=== PATIENT | female | born 1975 | race Caucasian/White ===

== ENCOUNTER 2020-07-16 09:10 | Emergency (ER) | payer OTHER, SELFPAY ==
--- NOTE | ~2020-07-16 | CT_ITS ---
EXAMINATION: CT abdomen pelvis w con EXAM DATE: 07/16/2020 10:14 INDICATION: Abdominal pain. TECHNIQUE: Spiral CT of the abdomen and pelvis was performed without contrast. Axial, coronal and s agittal images were reviewed. The dose-length product (DLP) for this examination was 729.27 mGy-cm. The exposure was tailored according to patient size (auto mA exposure control), and iterative recons truction (ASIR) was used as additional dose reduction technique. Comparison is made to prior examinat ion from 07/29/2017. FINDINGS: The liver, spleen, adrenal glands and pancreas are unremarkable. Gallbladder is unremarkab le. No biliary obstruction. Portal and splenic veins are patent. Kidneys enhance symmetrically. T here is no hydronephrosis. The uterus is not identified and has likely been surgically resected. T he bladder is unremarkable. There is no retroperitoneal or pelvic lymphadenopathy. There is moderate scattered colonic diverticulosis. There is moderate amount of inflammation surround ing the descending colon, appearance consistent with acute uncomplicated diverticulitis. The appendix is normal. There is small sliding gastroesophageal hiatal hernia. There is expected amount of colo chris stool. No free intraperitoneal gas. The heart is normal in size. There are no pericardial or pleural effusions. The lung bases are unremarkable. Thoracolumbar Mooney rods. Mild to modera te upper lumbar levoscoliosis. There are no osteoblastic or osteolytic lesions identified. IMPRESSION: 1. Acute uncomplicated sigmoid diverticulitis. Reviewed, dictated and finalized at location A.
[2020-07-16 09:13] VITALS: BP 146/81; PULSE 82; RESP 18; TEMP 36.4; O2SAT 97
--- NOTE | 2020-07-16 09:21 | ED.ABDPAIN ---
HPI - Abdominal Pain General Chief Complaint: Abdominal Pain Stated Complaint: diverticulitis again Time Seen by Provider: 07/16/20 09:12 Source: RN notes reviewed History of Present Illness HPI narrative: Patient presents emergency department from home for abdominal pain. Patient states pain began 2 days ago located in the right lower quadrant described as aching in nature. Patient states that she did take ibuprofen this morning with improvement of the pain states she has a history of previous diverticulitis and this feels like similar. She denies any fevers or chills chest pain shortness of breath nausea vomiting diarrhea or any other symptoms Related Data Home Medications Medication Instructions Recorded Confirmed adalimumab 40 mg/0.8 mL See Rx Instructions SUB-Q .COMPLEX 08/25/19 08/25/19 subcutaneous syringe kit amlodipine 5 mg tablet 5 mg PO DAILY 08/25/19 08/25/19 biotin 1 mg capsule 1 mg PO DAILY 08/25/19 08/25/19 cholecalciferol (vitamin D3) 50 6,000 unit PO DAILY tablet 08/25/19 08/25/19 mcg (2,000 unit) tablet gabapentin 300 mg capsule 300 mg PO TID 08/25/19 08/25/19 hydroxychloroquine 200 mg tablet 200 mg PO BID 08/25/19 08/25/19 prenat.vits,jhon,vrz-slxw-ndwxj 1 tablet PO DAILY 08/25/19 08/25/19 methotrexate sodium 2.5 mg tablet 2.5 mg PO WEEKLY 02/19/20 estradiol mg 07/16/20 Allergies Allergy/AdvReac Type Severity Reaction Status Date / Time AMOXICILLIN TRIHYDRATE Allergy Mild STOMACHE Uncoded 07/16/20 09:22 CRAMPS/DIARRHEA POTASSIUM CLAVULANATE Allergy Mild STOMACHE Uncoded 07/16/20 09:22 CRAMPS/DIARRHEA Review of Systems Review of Systems: Narrative: Gen.: Denies fevers or chills ENT: Denies congestion Respiratory: Denies shortness of breath or cough CV: Denies chest pain or palpitations GI: See HPI denies burning, urgency, frequency or hematuria Musculoskeletal: Denies back pain or muscle pain Neuro: Denies numbness, tingling, weakness or focal weakness Skin: Denies rash Except as documented, all other systems reviewed and negative PMFSH Past Medical History Medical History Heart murmur Hyperparathyroidism Hypertension Insomnia Kidney stones Psoriatic arthritis Scoliosis Sjogrens syndrome Surgical History Surgical History (Updated 08/25/19 @ 08:07 by Marjorie Hope CMA) H/O spinal fusion History of partial hysterectomy Hx of breast augmentation Family History Family History (Updated 05/21/18 @ 16:00 by DOCTOR UNKNOWN) Father Hypertension Family history of diabetes mellitus in first degree relative Mother Hypertension Sibling Family history of alcoholism Other Family history of cardiovascular disease Social History Social History Smoking status: Never smoker Alcohol intake: current Gender identity (if verbalized by the patient): Female Exam Narrative: Exam Narrative: APPEARANCE: No acute distress, nontoxic, resting in bed HEENT: Normocephalic, atraumatic, OMM RESPIRATORY: No respiratory distress, clear to auscultation bilaterally with no rhonchi wheezing or rales CARDIOVASCULAR: RRR s murmur ABDOMINAL: Soft, nondistended, tender palpation right lower quadrant, no tenderness right upper quadrant, left lower quadrant left lower quadrant no rebound or guarding MUSCULOSKELETAl: Moves all extremities. No clubbing, cyanosis or edema. NEURO: Awake and alert. Following commands, speech normal, no focal deficits SKIN:: Warm, dry. Normal Color PSYCHIATRIC: Normal affect/mood Course Course Emergency Course: Discussed Dr. Rock presentation work-up agrees with plan for discharge follow-up as an outpatient Discussed with patient results of workup and diagnosis. Discussed need for follow-up with primary care, proper use of medication, and reasons to return to the emergency department. Patient understands and agrees to current treatment
[2020-07-16 09:37] LABS: Basophils Absolute Auto 0.1 K/mm3 (0.0-0.1); Basophils Percent Auto 0.5 % (0.2-1.2); Eosinophils Absolute Auto 0.3 K/mm3 (0-0.3); Eosinophils Percent Auto 2.4 % (0-4.4); Hematocrit 38.1 % (37.0-47.0); Hemoglobin 12.9 g/dL (12.0-15.0); Immature Granulocyte Absolute 0.05 K/mm3 (0.00-0.031); Immature Granulocyte Percent A 0.4 % (0-0.5); Lymphocytes Absolute Auto 1.63 K/mm3 (0.9-3.2); Lymphocytes Percent Auto 11.9 % (18.3-44.2); Mean Corpuscular HGB Conc 33.9 g/dl (32-36); Mean Corpuscular Hemoglobin 34.2 pg (26-34); Mean Corpuscular Volume 101.1 fl (80-100); Mean Platelet Volume 11.7 fl (7.4-10.4); Monocytes Absolute Auto 1.6 K/mm3 (0.1-0.6); Monocytes Percent Auto 11.3 % (2.6-8.5); Neutrophils Absolute Auto 10.1 K/mm3 (1.3-6.7); Neutrophils Percent Auto 73.5 % (45.5-73.1); Platelet Count Result 253 k/mm3 (150-375); Red Blood Count 3.77 M/mm3 (4.2-5.4); Red Cell Distribution Width 13.1 % (11.5-14.5); White Blood Count 13.7 K/mm3 (4.5-10.0)
[2020-07-16 09:43] LABS: Add Urine Microscopic? NO; Appearance Urine Clear (Clear); Bacteria Urine Trace /hpf; Bilirubin Urine Negative (Negative); Blood Urine Negative (Negative); Color Urine Yellow (Yellow); Glucose Urine UA Negative (Negative); Ketones Urine Negative (Negative); Leukocyte Esterase Ur Negative LEU/UL (Negative); Mucus Urine Rare /lpf; Nitrate Urine Negative (Negative); Protein Urine Negative (Negative); RBC Urine 0-2 /hpf (0-2); Specific Grav Ur 1.006 (1.001-1.035); Squamous Epithelial Cell Urine Moderate /hpf (Few); Urobilinogen Urine Negative mg/dL (<2.0); WBC Urine 0-3 /hpf
[2020-07-16 09:51] LABS: Alanine Aminotransferase 60 U/L (4-35); Albumin Level 4.5 g/dL (3.5-5.1); Alkaline Phosphatase 59 U/L (38-126); Anion Gap 8 mmol/L (8-16); Aspartate Amino Transferase 26 U/L (14-36); Bilirubin,Total 0.8 mg/dL (0.2-1.3); Blood Urea Nitrogen 16 mg/dL (7-17); Calcium 10.3 mg/dL (8.4-10.2); Carbon Dioxide 29 mmol/L (22-30); Chloride 103 mmol/L (98-107); Estimated CRCL calculation 117 ml/min; Estimated Glomerular Filt Rate > 60; Glucose 105 mg/dL (65-105); Lipase 129 U/L (23-300); Potassium 4.2 mmol/L (3.4-5.0); Sodium 140 mmol/L (137-145)
[2020-07-16] MEDS: CIPROFLOXACIN 500 MG TAB PO (11:19)
[2020-07-16] MEDS: metroNIDAZOLE 250 MG TABLET 500 MG PO (11:20)
== END 2020-07-16 12:38 | disposition home or self-care (01) ==
PROVIDERS: Emergency Provider Emergency Medicine; PCP Internal Medicine
DX: K57.32 Diverticulitis of large intestine without perforation or abscess without bleeding (principal); E21.3 Hyperparathyroidism, unspecified; I10 Essential (primary) hypertension; Z87.442 Personal history of urinary calculi; L40.50 Arthropathic psoriasis, unspecified; M35.00 Sjogren syndrome, unspecified; Z98.1 Arthrodesis status
CPT/HCPCS: 36415; 74177; 80053; 81003; 83690; 85025; 99284; A9270; Q9967

== ENCOUNTER 2021-01-05 08:38 | Outpatient (CLI) | payer OTHER, SELFPAY ==
--- NOTE | ~2021-01-05 | CT_ITS ---
EXAMINATION: CT wrist RT wo con DATE: 01/05/2021 09:08 INDICATION: Right wrist pain post fall 2 weeks prior TECHNIQUE: High resolution computed tomography (CT) of the right was performed without intravenous co ntrast. Additional sagittal and coronal reconstructions were performed. Automated exposure control an d iterative reconstruction technique were employed. The dose-length product was 275.22 mGy-cm. COMPARISON: None FINDINGS: Bone alignment is normal. No fracture. Mild osteoarthritis at the second carpometacarpal joint. Remai analy joint spaces are relatively preserved. Approximately 14 x 5 x 6 mm ganglion cyst arising from th e wrist joint and extending volar to the radial styloid process. Soft tissues are otherwise unremarka ble. IMPRESSION: 1. No acute osseous abnormality. Reviewed, dictated and finalized at location A.
== END 2021-01-05 08:39 | disposition home or self-care (01) ==
LOC: ANHIMG 08:42
PROVIDERS: PCP Internal Medicine; Visit Provider Nurse Practitioner
DX: M25.531 Pain in right wrist (principal)
CPT/HCPCS: 73200

== ENCOUNTER 2021-04-29 14:38 | Emergency (ER) | payer OTHER, SELFPAY ==
--- NOTE | ~2021-04-29 | CT_ITS ---
EXAMINATION: CT abdomen pelvis w con DATE: 04/29/2021 16:29 INDICATION: Nausea, vomiting and diarrhea TECHNIQUE: Computed tomography (CT) of the abdomen and pelvis was performed with 100 mL Omnipaque-350 intravenous contrast. Automated exposure control and iterative reconstruction technique were employe d. The dose-length product was 1432.04 mGy-cm. COMPARISON: 07/16/2020 FINDINGS: Lung bases are clear. Heart size is normal. No pericardial or pleural effusion. Small sliding-type hi atal hernia. Diffuse hepatic steatosis with more focal fat at the ligamentum teres. Gallbladder, panc reas, spleen, bilateral adrenal glands and kidneys are normal. There is moderate colonic diverticulos is with a sigmoid predominance. There is no adjacent inflammatory change to suggest diverticulitis. Small bowel and appendix are normal. Bladder is normal. The uterus is not identified and has likely been surgically resected. No free intraperitoneal gas or fluid. No pathologically enlarged abdominal or pelvic lymphadenopathy. Lumbar levoscoliosis with mild spondylosis. Posterior spinal fusion with b ilateral vertical rods and pedicle screw fixation extending cephalad from L1 to at least T7 and beyon d the cephalad margin of the [id number]-ml-phdo. IMPRESSION: 1. No acute intra-abdominal/pelvic process. 2. Small sliding-type hiatal hernia. 3. Diffuse hepatic steatosis. 4. Moderate colonic diverticulosis. Reviewed, dictated and finalized at location A.
--- NOTE | ~2021-04-29 | XR_ITS ---
EXAMINATION: XR chest 1V portable INDICATION: Hypertension TECHNIQUE: Portable AP chest at 1534 hours COMPARISON: 01/27/2008 FINDINGS: The lungs are free of acute opacities. There is no pleural effusion or pneumothorax. The ca rdiomediastinal silhouette is normal. There are changes of thoracic spine fusion. IMPRESSION: 1. No acute cardiopulmonary abnormality. Reviewed, dictated and finalized at location A.
[2021-04-29 14:41] VITALS: BP 229/95; PULSE 88; RESP 22; TEMP 36.7; O2SAT 98
[2021-04-29 15:13] LABS: Basophils Absolute Auto 0.1 K/mm3 (0.0-0.1); Basophils Percent Auto 0.6 % (0.2-1.2); Eosinophils Absolute Auto 0.1 K/mm3 (0-0.3); Eosinophils Percent Auto 1.2 % (0-4.4); Hemoglobin 12.9 g/dL (12.0-15.0); Immature Granulocyte Absolute 0.04 K/mm3 (0.00-0.031); Immature Granulocyte Percent A 0.3 % (0-0.5); Lymphocytes Absolute Auto 1.58 K/mm3 (0.9-3.2); Lymphocytes Percent Auto 13.2 % (18.3-44.2); Mean Corpuscular HGB Conc 33.1 g/dl (32-36); Mean Corpuscular Hemoglobin 33.9 pg (26-34); Mean Corpuscular Volume 102.6 fl (80-100); Mean Platelet Volume 10.9 fl (7.4-10.4); Monocytes Percent Auto 8.4 % (2.6-8.5); Neutrophils Absolute Auto 9.1 K/mm3 (1.3-6.7); Neutrophils Percent Auto 76.3 % (45.5-73.1); Platelet Count Result 231 k/mm3 (150-375); Red Cell Distribution Width 13.3 % (11.5-14.5)
--- NOTE | 2021-04-29 15:24 | ECG_ITS ---
Measurements Intervals [place] Rate: 74 P: 26 MD: 141 QRS: -19 QRSD: 106 T: 32 QT: 395 QTc: 439 Interpretive Statements SINUS RHYTHM BORDERLINE R WAVE PROGRESSION, ANTERIOR LEADS BASELINE WANDER- I, II BORDERLINE ECG Electronically Signed On 04-30-2021 7:19:02 CDT by Jarred Ornelas D.O.
--- NOTE | 2021-04-29 15:27 | ED.GENADULT ---
HPI - General Adult General Chief complaint: Abdominal Pain Stated complaint: abd pain Time Seen by Provider: 04/29/21 14:51 Source: patient Mode of arrival: ambulatory Limitations: no limitations History of Present Illness HPI narrative: Patient presents for evaluation of abdominal pain, nausea without vomiting, and diarrhea since 1130 this morning. States the pain is intermittent, occurring approximately once every 15 minutes and lasting about 1 minute in duration. No fever, chills, urinary symptoms. She has a hx of recurrent diverticulitis but pain with diverticulitis is typically on the left side. Her current pain is in epigastric region and radiates across her abdomen. She had a colonoscopy in 2016 that showed diverticulosis without other abnormalities. She states that GI informed her that she did not need to return for colonoscopy until 2026. Surgical history positive for hysterectomy. She does drink daily, with reported intake of five vodka-containing beverages daily. Last ETOH use was yesterday. Related Data Home Medications Medication Instructions Recorded Confirmed adalimumab 40 mg/0.8 mL See Rx Instructions SUB-Q .COMPLEX 08/25/19 01/19/21 subcutaneous syringe kit biotin 1 mg capsule 1 mg PO DAILY 08/25/19 01/19/21 cholecalciferol (vitamin D3) 50 6,000 unit PO DAILY tablet 08/25/19 01/19/21 mcg (2,000 unit) tablet gabapentin 300 mg capsule 300 mg PO TID 08/25/19 01/19/21 hydroxychloroquine 200 mg tablet 200 mg PO BID 08/25/19 01/19/21 prenat.vits,jhon,rxu-ypao-cqama 1 tablet PO DAILY 08/25/19 01/19/21 estradiol mg 07/16/20 01/19/21 folic acid 400 mcg tablet 0.4 mg PO DAILY 07/19/20 01/19/21 methotrexate sodium 15 mg tablet 15 mg PO WEEKLY 07/19/20 01/19/21 omega-3 fatty acids 1,000 mg 1,000 mg PO DAILY 12/08/20 01/19/21 capsule Allergies Allergy/AdvReac Type Severity Reaction Status Date / Time AMOXICILLIN TRIHYDRATE Allergy Mild STOMACHE Uncoded 07/19/20 08:01 CRAMPS/DIARRHEA POTASSIUM CLAVULANATE Allergy Mild STOMACHE Uncoded 07/19/20 08:01 CRAMPS/DIARRHEA Review of Systems Review of Systems: Narrative: CONSTITUTIONAL: Denies fever, chills, or sweats. EYES: Denies visual changes, redness, or discharge. ENT: Denies rhinorrhea, congestion, sore throat, or otalgia. CARDIOVASCULAR: Denies chest pain, palpitations, or edema. RESPIRATORY: Denies cough or dyspnea. GASTROINTESTINAL: Reports diarrhea, abdominal pain, and nausea without vomiting. GENITOURINARY: Denies dysuria or hematuria. SKIN: Denies rash or itching. MUSCULOSKELETAL: Denies back pain, joint pain, or myalgia. NEUROLOGIC: Denies headache, numbness, dizziness, or weakness. PSYCHIATRIC: Denies anxiety or depression. [facility] Past Medical History Medical History (Updated 04/29/21 @ 17:43 by Michael Casillas, RAFAEL, ) Heart murmur Hyperparathyroidism Hypertension Insomnia Kidney stones Psoriatic arthritis Scoliosis Sjogrens syndrome Surgical History Surgical History H/O spinal fusion History of partial hysterectomy Hx of breast augmentation Family History Family History Father Hypertension Family history of diabetes mellitus in first degree relative Mother Hypertension Sibling Family history of alcoholism Other Family history of cardiovascular disease Social History Social History Smoking status: Never smoker Alcohol intake: current Alcohol use details: daily Gender identity (if verbalized by the patient): Female Exam Narrative: Exam Narrative: GENERAL: Well-appearing, well-nourished, and in no acute distress. HEAD: Normocephalic, atraumatic. EYES: PERRLA and EOMI. ENT: Nares clear, no rhinorrhea or epistaxis. Mucous membranes moist. Oropharynx without tonsillar hypertrophy exudate or other lesions. Bilateral TMs
[2021-04-29] MEDS: MORPHINE SULFATE (*CRX) 2 MG/ML INJ IV PUSH (15:39)
[2021-04-29] MEDS: ONDANSETRON INJ 4 MG/2 ML VIAL IV PUSH (15:39)
[2021-04-29] MEDS: SODIUM CHLORIDE 0.9% IV 1,000 ML 999 ML IV CONT (15:40)
[2021-04-29 16:08] LABS: Alanine Aminotransferase 57 U/L (4-35); Albumin Level 4.6 g/dL (3.5-5.1); Alkaline Phosphatase 59 U/L (38-126); Anion Gap 10 mmol/L (8-16); Aspartate Amino Transferase 48 U/L (14-36); Bilirubin,Total 0.5 mg/dL (0.2-1.3); Blood Urea Nitrogen 16 mg/dL (7-17); Calcium 10.6 mg/dL (8.4-10.2); Carbon Dioxide 23 mmol/L (22-30); Chloride 106 mmol/L (98-107); Estimated CRCL calculation 131 ml/min; Estimated Glomerular Filt Rate > 60; Glucose 101 mg/dL (65-110); Lactic Acid Reflex 0.9 mmol/L (0.7-2.1); Lipase 126 U/L (23-300); Sodium 139 mmol/L (137-145)
[2021-04-29 16:19] LABS: Troponin I < 0.012 ng/mL (0.000-0.034)
[2021-04-29 16:58] LABS: Add Urine Microscopic? YES; Appearance Urine Clear (Clear); Bacteria Urine Trace /hpf; Bilirubin Urine Negative (Negative); Blood Urine Negative (Negative); Color Urine Yellow (Yellow); Glucose Urine UA Negative (Negative); Ketones Urine Trace mg/dL (Negative); Leukocyte Esterase Ur Negative LEU/UL (Negative); Mucus Urine Rare /lpf; Nitrate Urine Negative (Negative); Protein Urine Negative (Negative); RBC Urine 0-2 /hpf (0-2); Squamous Epithelial Cell Urine Occasional /hpf (Few); Urobilinogen Urine Negative mg/dL (<2.0); WBC Urine 0-3 /hpf
[2021-04-29 18:05] VITALS: BP 174/89; PULSE 89; RESP 17; O2SAT 98
== END 2021-04-29 18:10 | disposition home or self-care (01) ==
PROVIDERS: Emergency Provider Nurse Practitioner; PCP Internal Medicine
DX: R10.84 Generalized abdominal pain (principal); R19.7 Diarrhea, unspecified; E21.3 Hyperparathyroidism, unspecified; I10 Essential (primary) hypertension; Z87.442 Personal history of urinary calculi; L40.50 Arthropathic psoriasis, unspecified; M35.00 Sjogren syndrome, unspecified; Z98.1 Arthrodesis status; K44.9 Diaphragmatic hernia without obstruction or gangrene; K76.0 Fatty (change of) liver, not elsewhere classified; K57.90 Diverticulosis of intestine, part unspecified, without perforation or abscess without bleeding; R94.31 Abnormal electrocardiogram [ECG] [EKG]
CPT/HCPCS: 36415; 71045; 74177; 80053; 81001; 83605; 83690; 84484; 85025; 93005; 96374; 96375; 99284; J2270; J2405; J7030; Q9967

== ENCOUNTER → 2021-07-21 12:39 | Outpatient (CLI) | payer OTHER, SELFPAY ==
--- NOTE | ~2021-07-21 | MM_ITS ---
EXAMINATION: MM screening [facility] BI w [facility] HISTORY: Screening mammogram TECHNIQUE: Craniocaudal and mediolateral oblique 3-D tomosynthesis images were obtained and synthetic 2-D images were generated. CAD analysis was submitted and interpreted. COMPARISON: 01/07/2018, 12/23/2017, 02/13/2016 BREAST PARENCHYMAL COMPOSITION: There are scattered areas of fibroglandular density. FINDINGS: A stable mass in the middle third of the central right breast is considered benign given th e lack of interval change. There is no evidence of suspicious mass, calcification, or architectural d istortion to suggest malignancy in either breast. There has been no suspicious interval change. IMPRESSION: 1. No mammographic evidence of malignancy. 2. Recommend routine screening mammography in one year. BI-RADS Category 2: Benign finding(s). Reviewed, dictated and finalized at location A.
== END ==
PROVIDERS: PCP Internal Medicine; Visit Provider Internal Medicine
DX: Z12.31 Encounter for screening mammogram for malignant neoplasm of breast (principal)
CPT/HCPCS: 77063; 77067

== ENCOUNTER 2022-09-17 17:31 | Emergency (ER) | payer OTHER, SELFPAY ==
[2022-09-17 17:49] VITALS: BP 144/69; PULSE 106; RESP 16; TEMP 36.3; O2SAT 100
--- NOTE | 2022-09-17 21:39 | PC.NURSE ---
first call [phone], no answer from waiting room second call 2138, no answer from waiting room. patient left without seeing a provider
== END 2022-09-17 21:56 | disposition left against medical advice (07) ==
PROVIDERS: Emergency Provider Internal Medicine; PCP Internal Medicine
DX: K92.1 Melena (principal)
CPT/HCPCS: 99199

== ENCOUNTER 2022-09-18 08:35 | Inpatient (IN) | payer OTHER, SELFPAY ==
[2022-09-18] VITALS (7 sets, daily range): BP systolic 136–180; BP diastolic 50–93; PULSE 77–99; RESP 16–18; TEMP 36.6–36.8; O2SAT 98–100; BMI 41.9
[2022-09-18 09:06] LABS: Basophils Absolute Auto 0.1 K/mm3 (0.0-0.1); Basophils Percent Auto 1.1 % (0.2-1.2); Eosinophils Absolute Auto 0.2 K/mm3 (0-0.3); Eosinophils Percent Auto 4.1 % (0-4.4); Hematocrit 24.2 % (37.0-47.0); Hemoglobin 7.5 g/dL (12.0-15.0); Immature Granulocyte Absolute 0.01 K/mm3 (0.00-0.031); Immature Granulocyte Percent A 0.2 % (0-0.5); Lymphocytes Absolute Auto 1.58 K/mm3 (0.9-3.2); Lymphocytes Percent Auto 29.3 % (18.3-44.2); Mean Corpuscular Volume 96.8 fl (80-100); Mean Platelet Volume 11.3 fl (7.4-10.4); Monocytes Absolute Auto 0.6 K/mm3 (0.1-0.6); Monocytes Percent Auto 11.7 % (2.6-8.5); Neutrophils Absolute Auto 2.9 K/mm3 (1.3-6.7); Neutrophils Percent Auto 53.6 % (45.5-73.1); Platelet Count Result 328 k/mm3 (150-375); Red Cell Distribution Width 13.6 % (11.5-14.5); White Blood Count 5.4 K/mm3 (4.5-10.0)
--- NOTE | 2022-09-18 09:16 | ED.GENADULT ---
HPI - General Adult General Chief complaint: GI Bleed Stated complaint: blood in stool, can't get in to GI Time Seen by Provider: 09/18/22 08:47 History of Present Illness HPI narrative: This is a 47-year-old female presenting ED for a GI bleed. Patient says that since September 06 she has been having maroon-colored stools. She got some basic lab work on September 08 which showed a hemoglobin of 9.1 which is low for her. Patient has noticed over last 3 weeks she has had significant fatigue and difficulty completing her day at work. Additionally she is having dyspnea on exertion is unable to go grocery shopping without becoming short of breath. Patient does have a history of diverticulosis. Her last colonoscopy was in 2016 after a bout of diverticulitis. Patient is not on any sort of blood thinner anticoagulant. Related Data Home Medications Medication Instructions Recorded Confirmed adalimumab 40 mg/0.8 mL See Rx Instructions subcut .COMPLEX 08/25/19 12/11/21 subcutaneous syringe kit (Humira) biotin 1 mg capsule 1 mg PO DAILY 08/25/19 12/11/21 cholecalciferol (vitamin D3) 50 6,000 unit PO DAILY 08/25/19 12/11/21 mcg (2,000 unit) tablet gabapentin 300 mg capsule 300 mg PO TID 08/25/19 12/11/21 hydroxychloroquine 200 mg tablet 200 mg PO BID 08/25/19 12/11/21 (Plaquenil) prenat.vits,jhon,quk-lceo-lojny 1 tablet PO DAILY 08/25/19 12/11/21 estradiol 0.5 mg tablet mg 07/16/20 12/11/21 omega-3 fatty acids 1,000 mg 1,000 mg PO DAILY 12/08/20 12/11/21 capsule (Fish Oil Concentrate) glucosam 750 mg-chondroi 100 tablet PO 07/23/22 mg-hyalur 1.65 mg-CF borate 108 mg tablet ([facility] [employer]) turmeric 1 cap PO DAILY 07/23/22 leflunomide 10 mg tablet mg 09/18/22 nirmatrelvir 300 mg (150 mg ea PO 09/18/22 x2)-ritonavir 100 mg tablet,dose pack(EUA) (Paxlovid) Allergies Allergy/AdvReac Type Severity Reaction Status Date / Time Beta-Blockers AdvReac Unknown Verified 09/18/22 09:24 (Beta-Adrenergic Bloc AMOXICILLIN TRIHYDRATE Allergy Mild STOMACHE Uncoded 07/23/22 08:23 CRAMPS/DIARRHEA POTASSIUM CLAVULANATE Allergy Mild STOMACHE Uncoded 07/23/22 08:23 CRAMPS/DIARRHEA Review of Systems Review of Systems: CONSTITUTIONAL: Denies night sweats. EYES: No eye pain ENT: Denies rhinorrhea CARDIOVASCULAR: Denies palpitations RESPIRATORY: Denies hemoptysis GASTROINTESTINAL: Denies hematemesis GENITOURINARY: Denies hematuria. SKIN: Denies rash MUSCULOSKELETAL: Denies myalgia. NEUROLOGIC: Denies weakness. PSYCHIATRIC: Denies delusions PMFSH Past Medical History Medical History Chronic pain syndrome Heart murmur Hyperparathyroidism Hypertension Insomnia Kidney stones Psoriatic arthritis Scoliosis Sjogrens syndrome Surgical History Surgical History H/O removal of cyst Removed from Scalp 04/2021 H/O spinal fusion History of partial hysterectomy Hx of breast augmentation Family History Family History Father Hypertension Family history of diabetes mellitus in first degree relative Mother Hypertension Sibling Family history of alcoholism Other Family history of cardiovascular disease Social History Social History Social History: Caffeine-rarely Smoking status: Never smoker Alcohol intake: current Alcohol use details: occasionally Gender identity (if verbalized by the patient): Female Exam Narrative: APPEARANCE: No apparent distress. Head: atraumatic. EYES: EOMI, NOSE: Atraumatic NECK: Trachea midline RESPIRATORY: No increased rate of breathing CARDIOVASCULAR: RRR, ABDOMINAL: Non-distended , no tenderness, no guarding or rebound Rectal Exam: revealed no external hemorrhoids, no jackson blood, Hemoccult negative MUSCULOSKELETAl: No obvious
[2022-09-18 09:18] LABS: INR 1.1; Prothrombin Time 13.4 Seconds (11.1-14.7)
[2022-09-18 09:19] LABS: Partial Thromboplastin Time 24.3 SECONDS (22.3-36.8)
[2022-09-18 09:25] LABS: Alanine Aminotransferase 49 U/L (6-35); Albumin Level 4.4 g/dL (3.5-5.1); Alkaline Phosphatase 41 U/L (38-126); Anion Gap 9 mmol/L (8-16); Aspartate Amino Transferase 61 U/L (14-36); Bilirubin,Total 0.4 mg/dL (0.2-1.3); Blood Urea Nitrogen 25 mg/dL (7-17); Calcium 9.5 mg/dL (8.4-10.2); Carbon Dioxide 24 mmol/L (22-30); Chloride 99 mmol/L (98-107); Estimated CRCL calculation 77 ml/min; Estimated Glomerular Filt Rate 59; Glucose 108 mg/dL (65-110); Potassium 3.9 mmol/L (3.4-5.0); Sodium 132 mmol/L (137-145)
--- NOTE | 2022-09-18 09:33 | PC.NURSE ---
Per EDP Zych, no orthostatic blood pressure needed.
[2022-09-18] MEDS: PANTOPRAZOLE SODIUM IV 40 MG VIAL 80 MG IV PUSH (10:50)
[2022-09-18 11:21] LABS: Influenza A QL RT-PCR Negative (Negative); Influenza B QL RT-PCR Negative (Negative); SARS-CoV-2 RNA PCR Negative
--- NOTE | 2022-09-18 12:21 | WPDGICN ---
Assessment and Plan Assessment and plan (1) Acute GI bleeding: Code(s): K92.2 - Gastrointestinal hemorrhage, unspecified Status: Acute Assessment and Plan: Patient with GI bleeding manifested by maroon stools. She also has a decline in hemoglobin. Differential diagnosis includes diverticular disease. Patient does have a prior history of diverticulosis. Other G lower GI bleeding lesions cannot be excluded. Plan for admission hospital transfusion as necessary. Colonoscopy after preparation tomorrow. (2) Obesity: Qualifiers: Obesity type: due to excess calories Obesity classification: adult class 3 (BMI >= 40) Serious obesity comorbidity presence: without serious comorbidity Body mass index: BMI 45.0-49.9 Qualified Code(s): E66.01 - Morbid (severe) obesity due to excess calories; Z68.42 - Body mass index [BMI] 45.0-49.9, adult Code(s): E66.9 - Obesity, unspecified Status: Acute GI Consult Note Consult date/time: 09/18/22 12:21 Reason for consult: Lower GI bleeding HPI: Tequila Simpson is a 47 year old female I am asked to see at the request of the emergency room. Patient states for the last several weeks has had maroonish blood in her stools. This somewhat separate from her bowel movements. She notices a great deal in the toilet. She began to feel somewhat weak and lightheaded for this reason presented emergency room where she was found to be significantly anemic. Hemoglobin 7.5 today. Patient reports several bouts of diverticulitis. A 5 years ago had a colonoscopy that confirmed diverticular disease. She has had 2 other bouts of diverticulitis treated with antibiotics over the last 5 years. Patient also has a history of psoriatic arthritis and Sjogren syndrome. 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 CBC several weeks ago revealed a hemoglobin of 9-1/2. Family history is noncontributory. There is no known history of polyps or cancers within the family. Review of Systems Review of Systems: Review of systems noncontributory. [facility], [facility] Past Medical History Medical History Chronic pain syndrome Heart murmur Hyperparathyroidism Hypertension Insomnia Kidney stones Psoriatic arthritis Scoliosis Sjogrens syndrome Surgical History Surgical History H/O removal of cyst Removed from Scalp 04/2021 H/O spinal fusion History of partial hysterectomy Hx of breast augmentation Family History Family History Father Hypertension Family history of diabetes mellitus in first degree relative Mother Hypertension Sibling Family history of alcoholism Other Family history of cardiovascular disease Social History Social History Social History: Caffeine-rarely Smoking status: Never smoker Alcohol intake: current Alcohol use details: occasionally Gender identity (if verbalized by the patient): Female Meds Home Medications and Allergies Home Medications Medication Instructions Recorded Confirmed Type adalimumab 40 mg/0.8 mL See Rx Instructions subcut .COMPLEX 08/25/19 12/11/21 History subcutaneous syringe kit (Humira) biotin 1 mg capsule 1 mg PO DAILY 08/25/19 12/11/21 History cholecalciferol (vitamin D3) 50 6,000 unit PO DAILY 08/25/19 12/11/21 History mcg (2,000 unit) tablet gabapentin 300 mg capsule 300 mg PO TID 08/25/19 12/11/21 History hydroxychloroquine 200 mg tablet 200 mg PO BID 08/25/19 12/11/21 History (Plaquenil) prenat.vits,jhon,zom-ogyd-duwnz 1 tablet PO DAILY 08/25/19 12/11/21 History estradiol 0.5 mg tablet mg 07/16/20 12/11/21 History omega-3 fatty acids 1,000 mg 1,000 mg PO DAILY 12/08/20 12/11/21 History capsule (Fish Oil Concentrate) fluticasone propionate 50 1 spray intranasal DAILY #16 grams
--- NOTE | 2022-09-18 14:15 | PM.IMHP ---
H&P: HPI History of Present Illness Date/Time: 09/18/22 14:15 Chief Complaint: Blood in stool. Narrative: This is a pleasant 47-year-old female with history of diverticulitis, hypertension, and psoriatic arthritis who presented to the ED for evaluation of blood in stool. She has been passing maroon-colored stools, occasionally admixed with clots, almost on a daily basis since . She has also had a decrease in appetite appetite, early satiety, bloating, and increased flatus. She has lost 15 pounds since due to the symptoms. She was seen by a GI specialist at [facility] on September 11 at which time she was given orders for a CT of the abdomen and pelvis to be done as an outpatient and plans were made for upper and lower endoscopies in November 2022. She continues to have bloody stools and due to progressive fatigue, weakness, and shortness of breath she came in for evaluation. Her hemoglobin today was 7.5, down from 9.1 on labs drawn last week, and she is being admitted in this setting for close monitoring and GI consultation. At this time she is resting comfortably and has no complaints aside from the fact that she is a bit hungry. She denies fever, chills, sweats, epigastric and abdominal pain, tenesmus, and rectal pain. No personal or family history of inflammatory bowel disease or colon cancer. Review of Systems Review of Systems: Twelve systems were reviewed and are negative except for as per HPI. [facility] Past Medical History Medical History (Updated 09/18/22 @ 20:25 by Leola Healy PA-C) Anxiety Chronic pain syndrome Depression Hyperparathyroidism Hypertension Insomnia Kidney stones Psoriatic arthritis Scoliosis Sjogrens syndrome Vitamin D deficiency Surgical History Surgical History (Updated 09/18/22 @ 15:06 by Leola Healy PA-C) History of bilateral breast reduction surgery History of partial hysterectomy History of removal of cyst Scalp. History of spinal fusion Family History Family History Father Hypertension Family history of diabetes mellitus in first degree relative Mother Hypertension Sibling Family history of alcoholism Other Family history of cardiovascular disease Social History Social History (Updated 09/18/22 @ 20:23 by Leola Healy PA-C) Social History: Surrogate medical decision maker: Jensen Simpson, spouse. Code status: Full code. Smoking status: Never smoker Alcohol intake: former Alcohol use details: 4-5 drinks most nights, none since 2021 Substance use: current Substance use type: marijuana Other substance usage details: medical marijuana Last use: 09/17/22 Lack of Transportation: No Lack of Food: Never True Current Housing: I Have Housing Concerned About Future Housing: No Difficulty Paying Gas/Electric Bills: No Difficulty Paying for Meds: No Currently Unemployed: No Education: Bachelor's Degree Difficulty w/ Childcare or Family Care: No Additional living arrangements comments: Lives in [place] with spouse. They have grown children. Spiritual care concerns: No Meds Home Medications and Allergies Home Medications Medication Instructions Recorded Confirmed Type adalimumab 40 mg/0.8 mL See Rx Instructions subcut .COMPLEX 08/25/19 09/18/22 History subcutaneous syringe kit (Humira) biotin 1 mg capsule 1 mg PO DAILY 08/25/19 09/18/22 History cholecalciferol (vitamin D3) 50 6,000 unit PO DAILY 08/25/19 09/18/22 History mcg (2,000 unit) tablet hydroxychloroquine 200 mg tablet 200 mg PO BID 08/25/19 09/18/22 History (Plaquenil) prenat.vits,jhon,lys-ybnv-orkuz 1 tablet PO DAILY 08/25/19 09/18/22 History estradiol 0.5 mg tablet 0.5 mg PO DAILY 07/16/20 09/18/22 History omega-3 fatty acids 1,000 mg 2,000 mg PO DAILY 12/08/20 09/18/22 History capsule (Fish Oil Concentrate) fluticasone propionate 50
--- NOTE | 2022-09-18 16:35 | ADMGEN ---
This patient, Tequila Simpson, was admitted to [facility] Surg Room 317-02. Patient/family oriented to hospital policies and general routines including ID bracelet, bed and alarms, visiting hours, pain management, procedures, bathroom and other care routines, personal items, smoking policy, room service/diet, and visiting hours. Information on how to activate the Rapid Response Team has been discussed. Patient/Family are encouraged to report perceived risks to care and to ask questions if they do not understand what they are told or what they should do.
[2022-09-18] MEDS: PEG (High)/E-LYTE SOLN 4,000 ML BTL 4000 ML PO (16:52)
[2022-09-18 17:54] LABS: Hematocrit 22.8 % (37.0-47.0)
[2022-09-18] MEDS: HYDROXYCHLOROQUINE SULFATE 200 MG TABLET PO (21:36)
[2022-09-19] VITALS (15 sets, daily range): BP systolic 102–146; BP diastolic 39–79; PULSE 52–84; RESP 14–26; TEMP 36.1–36.6; O2SAT 96–100
[2022-09-19 01:45] LABS: Hemoglobin 6.3 g/dL (12.0-15.0)
[2022-09-19 01:46] LABS: Hematocrit 20.1 % (37.0-47.0)
--- NOTE | 2022-09-19 01:52 | PC.NURSE ---
H&H 6.3/20.1, order to transfuse 1 unit of prbc.
[2022-09-19] MEDS: SODIUM CHLORIDE 0.9% IV 250 ML 30 ML IV CONT (02:31)
[2022-09-19] MEDS: TUBING, BLOOD PLUM PUMP TUBING 1 EACH XX (02:31)
[2022-09-19 05:20] LABS: Glucose Point of Care 91 mg/dl (65-105)
[2022-09-19 07:55] LABS: Basophils Absolute Auto 0.1 K/mm3 (0.0-0.1); Basophils Percent Auto 1.2 % (0.2-1.2); Eosinophils Absolute Auto 0.2 K/mm3 (0-0.3); Eosinophils Percent Auto 3.5 % (0-4.4); Hematocrit 23.7 % (37.0-47.0); Hemoglobin 7.4 g/dL (12.0-15.0); Immature Granulocyte Absolute 0.02 K/mm3 (0.00-0.031); Immature Granulocyte Percent A 0.4 % (0-0.5); Mean Corpuscular HGB Conc 31.2 g/dl (32-36); Mean Corpuscular Hemoglobin 29.4 pg (26-34); Mean Platelet Volume 11.1 fl (7.4-10.4); Monocytes Absolute Auto 0.7 K/mm3 (0.1-0.6); Monocytes Percent Auto 13.4 % (2.6-8.5); Neutrophils Absolute Auto 2.4 K/mm3 (1.3-6.7); Neutrophils Percent Auto 48.5 % (45.5-73.1); Platelet Count Result 245 k/mm3 (150-375); Red Blood Count 2.52 M/mm3 (4.2-5.4); Red Cell Distribution Width 13.3 % (11.5-14.5); White Blood Count 4.9 K/mm3 (4.5-10.0)
[2022-09-19 07:59] LABS: Alanine Aminotransferase 48 U/L (6-35); Albumin Level 3.9 g/dL (3.5-5.1); Alkaline Phosphatase 46 U/L (38-126); Anion Gap 6 mmol/L (8-16); Aspartate Amino Transferase 40 U/L (14-36); Bilirubin,Total 0.3 mg/dL (0.2-1.3); Blood Urea Nitrogen 18 mg/dL (7-17); Calcium 8.9 mg/dL (8.4-10.2); Carbon Dioxide 28 mmol/L (22-30); Chloride 101 mmol/L (98-107); Estimated CRCL calculation 78 ml/min; Estimated Glomerular Filt Rate 59; Glucose 96 mg/dL (65-110); Magnesium 1.9 mg/dL (1.6-2.3); Potassium 3.2 mmol/L (3.4-5.0); Sodium 135 mmol/L (137-145)
[2022-09-19] MEDS: LEFLUNOMIDE 10 MG TABLET PO (08:18)
[2022-09-19] MEDS: HYDROXYCHLOROQUINE SULFATE 200 MG TABLET PO ×2 (08:18→17:05)
[2022-09-19] MEDS: lisinopriL 20 MG TABLET 40 MG PO (08:18)
[2022-09-19] MEDS: FLUTICASONE PROPIONATE 0.05% NA SPR 16 GM BTL (*BKC) 1 SPRAY NASAL (08:19)
[2022-09-19] MEDS: hydroCHLOROthiazide 25 MG TABLET PO (08:19)
[2022-09-19] MEDS: estradioL 0.5 MG TABLET PO (08:19)
--- NOTE | 2022-09-19 10:30 | PM.IMPN ---
Progress Note: A&P Assessment and Plan (1) Acute blood loss anemia: Code(s): D62 - Acute posthemorrhagic anemia Status: Acute Assessment and Plan: Reports multiple maroon-colored stools Hemoglobin hematocrit upon arrival was 7.0/22.6 and was trending down to 6.3/20.1. 1 unit of packed red blood cells given on 09/18/2022 Current H&H 7.4/23.7 Colonoscopy scheduled for today Continue to trend H&H (2) Acute GI bleeding: Code(s): K92.2 - Gastrointestinal hemorrhage, unspecified Status: Acute Assessment and Plan: Multiple episodes of melena GI consulted Colonoscopy scheduled for today Current H&H 7.4/23.7 Continue to trend H&H Transfuse as indicated (3) Elevated LFTs: Code(s): R79.89 - Other specified abnormal findings of blood chemistry Status: Acute Assessment and Plan: LFTs noted to be elevated upon admission however trending down Current AST/ALT 40/48 Continue trend Consider hepatitis panel in the a.m. Probably related to acute blood loss anemia (4) Hypertension: Qualifiers: Hypertension type: essential hypertension Qualified Code(s): I10 - Essential (primary) hypertension Code(s): I10 - Essential (primary) hypertension Status: Acute Assessment and Plan: Current blood pressure 135/70 Continue hydrochlorothiazide 25 mg daily, lisinopril 40 mg daily. Trend blood pressure Adjust blood pressure medications as appropriate (5) Psoriatic arthritis: Code(s): L40.50 - Arthropathic psoriasis, unspecified Status: Acute Assessment and Plan: Stable at this time Continue home medications Time Spent With Patient Time with patient: Greater than 35 minutes Subjective Date/time seen: 09/19/22 1030 Interval history: 09/19/22 1030 Patient states she is doing pretty well. She did state that she had a pretty significant bloody bowel movement this morning. She denies any chest pain, shortness a breath, nausea, vomiting, sweats, fevers, chills. Patient states she is doing pretty well and she is hopeful that she can go home after her procedure today. H&H is currently stable. Patient will need potassium after her procedure. 09/18/22? 14:15 This is a pleasant 47-year-old female with history of diverticulitis, hypertension, and psoriatic arthritis who presented to the ED for evaluation of blood in stool. She has been passing maroon-colored stools, occasionally admixed with clots, almost on a daily basis since . She has also had a decrease in appetite appetite, early satiety, bloating, and increased flatus. She has lost 15 pounds since due to the symptoms. She was seen by a GI specialist at [facility] on September 11 at which time she was given orders for a CT of the abdomen and pelvis to be done as an outpatient and plans were made for upper and lower endoscopies in November 2022. She continues to have bloody stools and due to progressive fatigue, weakness, and shortness of breath she came in for evaluation. Her hemoglobin today was 7.5, down from 9.1 on labs drawn last week, and she is being admitted in this setting for close monitoring and GI consultation. At this time she is resting comfortably and has no complaints aside from the fact that she is a bit hungry. She denies fever, chills, sweats, epigastric and abdominal pain, tenesmus, and rectal pain. No personal or family history of inflammatory bowel disease or colon cancer. Review of Systems Review of Systems: All systems reviewed & are unremarkable except as noted in HPI and below Exam Narrative: General: well-nourished, well-appearing 47-year-old female, laying in bed, comfortable, NARD Neuro: awake, alert and oriented x4, speech clear, no focal neuro deficits noted HEENMT: normocephalic, atraumatic, EOMI, sclerae anicteric, moist oral mucosa Re
--- NOTE | 2022-09-19 11:57 | WPDANESEPPF ---
Anes - Initial Pre Proc Eval Procedure: Operation Date: 09/19/22 12:30 Proposed Procedures p Colonoscopy - Campbell Smalls MD s Possible Esophagogastroduodenoscopy - Campbell Smalls MD Date/Time: 09/19/22 11:57 Surgeon: Jessee Mensah MD Pre Op Diagnosis: GI Bleed Patient Data Age: 47 Gender: F Height: 1.68 m Weight: 117.5 kg Last Vital Signs Temp 97.4 F L 09/19/22 04:35 Pulse 70 09/19/22 08:00 Resp 16 09/19/22 04:35 BP 133/52 L 09/19/22 04:35 Pulse Ox 100 09/19/22 04:35 O2 Del Method Room Air 09/19/22 08:00 Allergies Allergy/AdvReac Type Severity Reaction Status Date / Time amoxicillin [From Augmentin] AdvReac Mild Stomach Verified 09/19/22 11:54 cramps, Diarrhea clavulanic acid AdvReac Mild Stomach Verified 09/19/22 11:54 [From Augmentin] cramps, Diarrhea Beta-Blockers AdvReac Unknown Verified 09/19/22 11:53 (Beta-Adrenergic Bloc Home Medications Medication Instructions Recorded Confirmed Type adalimumab 40 mg/0.8 mL See Rx Instructions subcut .COMPLEX 08/25/19 09/18/22 History subcutaneous syringe kit (Humira) biotin 1 mg capsule 1 mg PO DAILY 08/25/19 09/18/22 History cholecalciferol (vitamin D3) 50 6,000 unit PO DAILY 08/25/19 09/18/22 History mcg (2,000 unit) tablet hydroxychloroquine 200 mg tablet 200 mg PO BID 08/25/19 09/18/22 History (Plaquenil) prenat.vits,jhon,sak-uxde-lukrb 1 tablet PO DAILY 08/25/19 09/18/22 History estradiol 0.5 mg tablet 0.5 mg PO DAILY 07/16/20 09/18/22 History omega-3 fatty acids 1,000 mg 2,000 mg PO DAILY 12/08/20 09/18/22 History capsule (Fish Oil Concentrate) fluticasone propionate 50 1 spray intranasal DAILY #16 grams 08/14/21 09/18/22 Rx mcg/actuation nasal spray,suspension hydrochlorothiazide 25 mg tablet 25 mg PO DAILY #90 tabs 12/11/21 09/18/22 Rx lisinopril 40 mg tablet 40 mg PO DAILY #90 tabs 04/18/22 09/18/22 Rx glucosam 750 mg-chondroi 100 1 tablet PO DAILY 07/23/22 09/18/22 History mg-hyalur 1.65 mg-CF borate 108 mg tablet (Move Free [facility]) turmeric 1 cap PO DAILY 07/23/22 09/18/22 History leflunomide 10 mg tablet 10 mg PO DAILY 09/18/22 09/18/22 History Laboratory Tests 09/18/22 09/18/22 09/19/22 09:00 17:46 01:29 WBC RBC Hgb 7.0 g/dL L g/dL 6.3 g/dL L* g/dL (12.0-15.0) (12.0-15.0) Hct 22.8 % L % 20.1 % L* % (37.0-47.0) (37.0-47.0) MCV MCH MCHC RDW Plt Count MPV Immature Gran % (Auto) Neut % (Auto) Lymph % (Auto) Pershing % (Auto) Eos % (Auto) Baso % (Auto) Lymph # (Auto) Pershing # (Auto) Eos # (Auto) Baso # (Auto) Abs Immat Gran (auto) Absolute Neuts (auto) Absolute Nucleated RBC Nucleated RBC % Sodium Potassium Chloride Carbon Dioxide Anion Gap BUN Creatinine Estim Creat Clear Calc Estimated GFR Glucose POC Capillary Glucose Calcium Magnesium Total Bilirubin AST ALT Alkaline Phosphatase Total Protein Albumin Blood Type O Positive Antibody Screen Negative Crossmatch See Detail 09/19/22 09/19/22 09/19/22 04:59 07:32 07:32 WBC 4.9 K/mm3 K/mm3 (4.5-10.0) RBC 2.52 M/mm3 L M/mm3 (4.2-5.4) Hgb 7.4 g/dL L g/dL (12.0-15.0) Hct 23.7 % L % (37.0-47.0) MCV 94.0 fl fl (80-100) MCH 29.4 pg pg (26-34) MCHC 31.2 g/dl L g/dl (32-36) RDW 13.3 % % (11.5-14.5) Plt Count 245 k/mm3 k/mm3 (150-375) MPV 11.1
--- NOTE | 2022-09-19 12:17 | PM.DS ---
DS: Admitting Diagnosis Discharge Date 09/19/22 Admitting Diagnosis Acute blood loss anemia, GI bleed DS: Discharge Diagnosis Discharge Diagnosis (1) Acute blood loss anemia: Code(s): D62 - Acute posthemorrhagic anemia Status: Acute Assessment and Plan: Reports multiple maroon-colored stools Hemoglobin hematocrit upon arrival was 7.0/22.6 and was trending down to 6.3/20.1. 1 unit of packed red blood cells given on 09/18/2022 Current H&H 7.4/23.7 Colonoscopy scheduled for today Continue to trend H&H (2) Acute GI bleeding: Code(s): K92.2 - Gastrointestinal hemorrhage, unspecified Status: Acute Assessment and Plan: Multiple episodes of melena GI consulted Colonoscopy scheduled for today Current H&H 7.4/23.7 Continue to trend H&H Transfuse as indicated (3) Elevated LFTs: Code(s): R79.89 - Other specified abnormal findings of blood chemistry Status: Acute Assessment and Plan: LFTs noted to be elevated upon admission however trending down Current AST/ALT 40/48 Continue trend Consider hepatitis panel in the a.m. Probably related to acute blood loss anemia (4) Hypertension: Qualifiers: Hypertension type: essential hypertension Qualified Code(s): I10 - Essential (primary) hypertension Code(s): I10 - Essential (primary) hypertension Status: Acute Assessment and Plan: Current blood pressure 135/70 Continue hydrochlorothiazide 25 mg daily, lisinopril 40 mg daily. Trend blood pressure Adjust blood pressure medications as appropriate (5) Psoriatic arthritis: Code(s): L40.50 - Arthropathic psoriasis, unspecified Status: Acute Assessment and Plan: Stable at this time Continue home medications DS: Summary Hospital Course Hospital Course: Patient is a 47-year-old female with a history of diverticulitis, hypertension, psoriatic arthritis who presented the ED for evaluation of multiple episodes of melena. Patient stated that she was passing multiple maroon-colored stools since . She also claimed to have had a 15 lb weight loss since that as well CT of the abdomen and pelvis was done and patient was to have outpatient endoscopies in November. However patient continues to have multiple episodes of bloody stools, accompanied with increased weakness and fatigue. Upon arrival patient was noted to have hemoglobin of 7.5, which was trending down and was noted to be 6.3. Patient was given 1 unit of packed red blood cells. GI was consulted patient was taken for a colonoscopy. Colonoscopy found . Patient is stable per labs and vital signs at this time and is stable for discharge. Patient currently denies any chest pain, shortness a breath, nausea, vomiting, diarrhea, constipation, weakness or fatigue. Patient has been able to tolerate a diet and is stable for discharge at this time. Status at Discharge Functional status at discharge: independent ambulation Overall status at discharge: patient is progressing back to baseline Time Spent with Patient Time attestation: Total time spent providing and/or coordinating discharge services: 38 minutes Time spent: Greater than 30 minutes Specific discharge activities: Diagnostic testing, chart review, developing a treatment plan, education, care coordination documentation, physical exam, result review Exam Narrative: General: well-nourished, well-appearing 47-year-old female, laying in bed, comfortable, NARD Neuro: awake, alert and oriented x4, speech clear, no focal neuro deficits noted HEENMT: normocephalic, atraumatic, EOMI, sclerae anicteric, moist oral mucosa Respiratory: Clear to auscultation bilaterally without crackles, rhonchi or wheezes, nonlabored breathing Cardio: regular rate, regular rhythm with S1-S2 Abdomen: nondistended, normoac
[2022-09-19] MEDS: LACTATED RINGERS 1,000 ML 150 ML IV CONT (12:26)
[2022-09-19 14:22] LABS: Hematocrit 24.4 % (37.0-47.0); Hemoglobin 7.6 g/dL (12.0-15.0)
--- NOTE | 2022-09-19 17:54 | PM.CNGS ---
Assessment and Plan Assessment and plan (1) Internal hemorrhoids with complication: Code(s): K64.8 - Other hemorrhoids Status: Chronic Assessment and Plan: discussed with patient. Suspect that internal hemorrhoids are the source of her rectal bleeding. Plan to proceed with surgery tomorrow. Will likely excise single column of internal and external hemorrhoids as well as rubber band ligating any additional internal hemorrhoids. Patient will likely stay overnight tomorrow night and then go home on Saturday. I discussed the usual recovery time. All questions were answered. She would like to go ahead. (2) External hemorrhoids with complication: Code(s): K64.4 - Residual hemorrhoidal skin tags Status: Chronic Assessment and Plan: Not the source of bleeding but will be excised with the left lateral prolapsing internal hemorrhoid (3) Acute blood loss anemia: Code(s): D62 - Acute posthemorrhagic anemia Status: Acute Assessment and Plan: stable at present. History of Present Illness Consult details Consult date: 09/19/22 Reason for consult: other ( rectal bleeding) Requesting physician: Campbell Smalls MD Narrative: patient is a 47-year-old woman who has had rectal bleeding off and on for many months. However this has gotten more frequent and for the last 13 days she has had at least 1 if not multiple bloody bowel movements a day. The bowel movements vary from dark or maroon to frankly bloody. She notices frequently that she will have dripping blood from her rectum into the toilet. She became anemic due to this. Hemoglobin done at an outside facility on 09/08 was 9.2. When she came to the emergency room on 09/18 her hemoglobin was 7.5. She has been complaining of fatigue weakness and dyspnea on a bi exertion. She was seen in consultation by Dr. Smalls. He did a colonoscopy on her yesterday. There were prominent internal hemorrhoids with stigmata of bleeding. I was asked to see the patient regarding internal hemorrhoids as a likely source of her continued rectal bleeding. Patient also has several autoimmune diseases namely psoriatic arthritis, Sjogren syndrome, and Raynaud's. She has had a thoracic spine fusion. She has also had hyperparathyroidism. She has a past history both in 2019 and before of acute diverticulitis. She had a CT scan April of 2022 which did not show any acute process but only some diverticulosis and a small hiatal hernia. She is seen now in consultation regarding her hemorrhoids and rectal bleeding. Her hemoglobin did drop to 6.3 this morning. She received 1 unit packed cells and her last hemoglobin is 7.6. Review of Systems Review of Systems: All systems reviewed & are unremarkable except as noted in HPI and below ( HPI and those items noted below) Constitutional: Constitutional: Reports as per HPI, Denies chills, Reports fatigue, Denies fever(s), Reports lethargy and Reports weakness Cardiovascular: Cardiovascular: Denies chest pain, Denies chest pain with activity, Denies diaphoresis, Denies syncope, Reports dyspnea and Denies paroxysmal nocturnal dyspnea Respiratory: Respiratory: Denies chest congestion, Denies cough, Denies hemoptysis and Reports dyspnea Gastrointestinal: Gastrointestinal: Reports as per HPI, Reports hematochezia, Denies nausea and Denies vomiting Integumentary/Breasts: Skin/Breast: Denies lesions and Denies rash PMFSH Past Medical History Medical History Anxiety Chronic pain syndrome Depression Hyperparathyroidism Hypertension Insomnia Kidney stones Psoriatic arthritis Scoliosis Sjogrens syndrome Vitamin D deficiency Surgical History Surgical History History of bilateral breast reduction surgery History of partial hysterectomy History of removal of cyst Scalp. History of spinal fusion Family History Family
[2022-09-20] VITALS (16 sets, daily range): BP systolic 86–145; BP diastolic 38–79; PULSE 64–99; RESP 12–20; TEMP 36.1–36.8; O2SAT 96–100
[2022-09-20 07:05] LABS: Hematocrit 29.6 % (37.0-47.0); Hemoglobin 8.9 g/dL (12.0-15.0); Mean Corpuscular HGB Conc 30.1 g/dl (32-36); Mean Corpuscular Volume 99.7 fl (80-100); Mean Platelet Volume 11.4 fl (7.4-10.4); Platelet Count Result 384 k/mm3 (150-375); Red Blood Count 2.97 M/mm3 (4.2-5.4); Red Cell Distribution Width 13.5 % (11.5-14.5); White Blood Count 9.1 K/mm3 (4.5-10.0)
[2022-09-20 07:31] LABS: Anion Gap 12 mmol/L (8-16); Blood Urea Nitrogen 11 mg/dL (7-17); Calcium 9.5 mg/dL (8.4-10.2); Carbon Dioxide 24 mmol/L (22-30); Chloride 102 mmol/L (98-107); Estimated CRCL calculation 79 ml/min; Estimated Glomerular Filt Rate 59; Glucose 116 mg/dL (65-110); Potassium 3.4 mmol/L (3.4-5.0); Sodium 138 mmol/L (137-145)
[2022-09-20 07:48] LABS: Magnesium 2.1 mg/dL (1.6-2.3)
[2022-09-20] MEDS: FLUTICASONE PROPIONATE 0.05% NA SPR 16 GM BTL (*BKC) 1 SPRAY NASAL (09:38)
[2022-09-20] MEDS: lisinopriL 20 MG TABLET 40 MG PO (09:38)
[2022-09-20] MEDS: HYDROXYCHLOROQUINE SULFATE 200 MG TABLET PO ×2 (09:38→17:44)
[2022-09-20] MEDS: hydroCHLOROthiazide 25 MG TABLET PO (09:39)
[2022-09-20] MEDS: estradioL 0.5 MG TABLET PO (09:39)
[2022-09-20] MEDS: LEFLUNOMIDE 10 MG TABLET PO (09:39)
--- NOTE | 2022-09-20 11:47 | WPDHPUPDATE1 ---
History and Physical Update Update Date/Time: 09/20/22 11:47 History and Physical has been reviewed, including an updated exam of the patient. There are NO changes in the patient's condition. Risks, benefits, and alternatives have been discussed and questions answered. Patient agrees to proceed with procedure.
[2022-09-20] MEDS: LACTATED RINGERS 1,000 ML 30 ML IV CONT (14:20)
--- NOTE | 2022-09-20 14:39 | WPDANESEPPF ---
Anes - Initial Pre Proc Eval Procedure: Operation Date: 09/20/22 14:30 Proposed Procedures p Hemorrhoidectomy,Excision Single Column, Rubber Band Ligation Internal Hemorrhoids - Jorge Rene MD Date/Time: 09/20/22 14:39 Surgeon: Jessee Mensah MD Pre Op Diagnosis: GI Bleed Patient Data Age: 47 Gender: F Height: 1.68 m Weight: 120.1 kg Last Vital Signs Temp 36.8 C 09/20/22 06:00 Pulse 70 09/20/22 13:35 Resp 18 09/20/22 13:35 BP 115/55 L 09/20/22 13:35 Pulse Ox 99 09/20/22 13:35 O2 Del Method Room Air 09/20/22 13:35 Allergies Allergy/AdvReac Type Severity Reaction Status Date / Time amoxicillin [From Augmentin] AdvReac Mild Stomach Verified 09/20/22 14:05 cramps, Diarrhea clavulanic acid AdvReac Mild Stomach Verified 09/20/22 14:05 [From Augmentin] cramps, Diarrhea Beta-Blockers AdvReac Unknown Verified 09/20/22 14:05 (Beta-Adrenergic Bloc Home Medications Medication Instructions Recorded Confirmed Type adalimumab 40 mg/0.8 mL See Rx Instructions subcut .COMPLEX 08/25/19 09/18/22 History subcutaneous syringe kit (Humira) biotin 1 mg capsule 1 mg PO DAILY 08/25/19 09/18/22 History cholecalciferol (vitamin D3) 50 6,000 unit PO DAILY 08/25/19 09/18/22 History mcg (2,000 unit) tablet hydroxychloroquine 200 mg tablet 200 mg PO BID 08/25/19 09/18/22 History (Plaquenil) prenat.vits,jhon,ccy-lmfm-mpyqg 1 tablet PO DAILY 08/25/19 09/18/22 History estradiol 0.5 mg tablet 0.5 mg PO DAILY 07/16/20 09/18/22 History omega-3 fatty acids 1,000 mg 2,000 mg PO DAILY 12/08/20 09/18/22 History capsule (Fish Oil Concentrate) fluticasone propionate 50 1 spray intranasal DAILY #16 grams 08/14/21 09/18/22 Rx mcg/actuation nasal spray,suspension hydrochlorothiazide 25 mg tablet 25 mg PO DAILY #90 tabs 12/11/21 09/18/22 Rx lisinopril 40 mg tablet 40 mg PO DAILY #90 tabs 04/18/22 09/18/22 Rx glucosam 750 mg-chondroi 100 1 tablet PO DAILY 07/23/22 09/18/22 History mg-hyalur 1.65 mg-CF borate 108 mg tablet (Move Free [employer]) turmeric 1 cap PO DAILY 07/23/22 09/18/22 History leflunomide 10 mg tablet 10 mg PO DAILY 09/18/22 09/18/22 History Laboratory Tests 09/20/22 09/20/22 06:44 06:44 WBC 9.1 K/mm3 K/mm3 (4.5-10.0) RBC 2.97 M/mm3 L M/mm3 (4.2-5.4) Hgb 8.9 g/dL L g/dL (12.0-15.0) Hct 29.6 % L % (37.0-47.0) MCV 99.7 fl D fl (80-100) MCH 30.0 pg pg (26-34) MCHC 30.1 g/dl L g/dl (32-36) RDW 13.5 % % (11.5-14.5) Plt Count 384 k/mm3 H D k/mm3 (150-375) MPV 11.4 fl H fl (7.4-10.4) Sodium 138 mmol/L mmol/L (137-145) Potassium 3.4 mmol/L mmol/L (3.4-5.0) Chloride 102 mmol/L mmol/L (98-107) Carbon Dioxide 24 mmol/L mmol/L (22-30) Anion Gap 12 mmol/L mmol/L (8-16) BUN 11 mg/dL D mg/dL (7-17) Creatinine 1.00 mg/dL mg/dL (0.7-1.0) Estim Creat Clear Calc 79 ml/min ml/min Estimated GFR 59 (59 - ) Glucose 116 mg/dL H mg/dL (65-110) Calcium 9.5 mg/dL mg/dL (8.4-10.2) Magnesium 2.1 mg/dL mg/dL (1.6-2.3) Patient hx anesthesia problems: none Family hx anesthesia problems: none Results Review: All pre-operative results and documents have been reviewed as part of the pre-operative evaluation. [facility] Past Medical History Medical History Anxiety Chronic pain syndrome Depression Hyperparathyroidism Hypertension Insomnia Kidney stones Psoriatic arthritis Scoliosis Sjogrens syndrome Vitamin D deficiency Surgical History Surgical History History of bilateral breast reduction surgery History of partial hysterectomy History of removal of cyst Scalp. History of spinal fusion Family History Family History (Reviewed 09/19/22 @ 18:00 by
[2022-09-20] MEDS: ceFAZolin 2 GM/D5W 50 ML 2 GM/50 ML BAG IVPB (15:02)
--- NOTE | 2022-09-20 15:05 | PM.IMPN ---
Progress Note: A&P Assessment and Plan (1) Acute blood loss anemia: Code(s): D62 - Acute posthemorrhagic anemia Status: Acute Assessment and Plan: Patient presented to the hospital with multiple maroon colored stools. Hemoglobin decreased by 2 points upon admission from baseline. She trended down to 6.3 hemoglobin and received 1 unit of packed red blood cells on 09/18/2022 he. Colonoscopy was performed on 09/19 patient was found to have multiple medium-sized uncomplicated internal hemorrhoids in the rectum with stigmata of bleeding. She also had multiple medium diverticuli in the sigmoid colon without active bleeding. Preop hemoglobin 8.9/hematocrit 29.6% Repeat CBC tomorrow morning (2) Acute GI bleeding: Code(s): K92.2 - Gastrointestinal hemorrhage, unspecified Status: Acute Assessment and Plan: As above. Colonoscopy suggested bleeding internal hemorrhoids. General surgery was consulted and planned for excision of internal and external hemorrhoids as well as rubber-band (3) Elevated LFTs: Code(s): R79.89 - Other specified abnormal findings of blood chemistry Status: Chronic Assessment and Plan: AST and ALT appear to be mildly elevated since April of 2021. CT abdomen and pelvis in April 2021 showed diffuse hepatic steatosis. Likely non alcoholic fatty liver disease. Encourage weight loss. (4) Hypertension: Qualifiers: Hypertension type: essential hypertension Qualified Code(s): I10 - Essential (primary) hypertension Code(s): I10 - Essential (primary) hypertension Status: Chronic Assessment and Plan: Chronic, stable. Continue HCTZ and lisinopril (5) Psoriatic arthritis: Code(s): L40.50 - Arthropathic psoriasis, unspecified Status: Chronic Assessment and Plan: Chronic, continue patient hydroxychloroquine and leflunomide Plan Code status: Full code Disposition: Inpatient Discharge plan: Discharge it is in 1-2 days postop home with patient's Time Spent With Patient Time with patient: 15 - 25 minutes Subjective Date/time seen: 09/20/22 15:05 Patient found sitting up in bed in no acute distress. She reports plan for surgery today around 1:00 a.m.. She reports 2 bowel movements overnight with small amount of blood that were ?drops?. She denies abdominal pain, nausea, vomiting, chest pain, shortness a breath, cough, sputum, palpitations, or dysuria. She does report low back pain that she attributes to the hospital bed. Review of Systems Review of Systems: All systems reviewed & are unremarkable except as noted in HPI and below Exam Narrative: General: No acute distress.? Well-developed and well-groomed?adult female sitting up in bed. No oxygen Mental Status/Psych: Awake, alert and oriented x3 with clear speech. Neutral mood and affect. Pleasant and cooperative. Skin: Skin fair, warm, dry and intact without rashes or lesions. No open wounds. Good turgor.? HEENT: Normocephalic. Conjunctivae are clear. Sclera is non-icteric. EOM intact. PERRL. Grossly normal hearing. Oral mucosa pink and moist. Neck: Supple. No JVD. Heart: S1 and S2 regular rate and rhythm. No murmurs, gallops, or rubs auscultated. Chest: Respirations even and unlabored. Lung sounds are clear to auscultation in all lobes bilaterally without wheezes, rhonchi, or rales. Abdomen: Soft, round and non-tender to palpation.? Bowel sounds present in all 4 quadrants. Extremities:? Grossly normal ROM all extremities. No edema, erythema, calf tenderness. Radial and dorsalis pedis pulses +2 bilaterally. Neurological: No focal deficits. Cranial nerves 2-12 grossly intact.? Sensation intact bilaterally Objective Data Vital Signs Vital Signs: Vital Signs - 24 hr 09/19/22 20:00 09/19/22 22:00 09/20/22 06:00 Temperature 96.9 F L 98.2 F Pulse Rate 64 52 L 70 Respiratory Rate 20 14 18 Blood Pressure 102/39 L 115/55 L Pulse Oximetry 10
[2022-09-20] MEDS: LIDO 1%/EPINEPHRINE/PF 1:200,000 30 ML VIAL 60 ML XX (15:39)
--- NOTE | 2022-09-20 17:19 | P.OP_ITS ---
Procedure Note - Detailed Date of Procedure 09/20/22 Pre-op Diagnosis bleeding prolapsed internal and external hemorrhoids Post-op Diagnosis Same Procedure Performed excision right posterior complex of internal and external hemorrhoids, rubber- band ligation of internal hemorrhoids Surgeon Jorge Rene MD [employer] Anesthesia General and Local ( 1% lidocaine with epinephrine) Indications patient is a 47-year-old woman who has had significant rectal bleeding for the last 2 weeks. She became quite anemic and was symptomatic from it. She came into the hospital. Colonoscopy was negative except for prominent internal hemorrhoids with stigmata of bleeding. She was seen in consultation yesterday and has 1 complex of internal and external hemorrhoids with internal hemorrhoidal prolapse. She also has internal hemorrhoids. She is taken to surgery now for excision of the complex and rubber-band ligation of additional internal hemorrhoids Findings even though on exam the left lateral complex seemed to be the most prominent, at surgery the right posterior complex was more prominent. This was the complex that was excised. Left lateral and right anterior internal hemorrhoids were found and were ligated. Description of Procedure Patient was taken to surgery and induced into general anesthesia. She was then placed in prone jose alfredo-knife position. Buttocks were taped apart. Prep and drape was carried out. Hill-Louie anoscope was used to examine the anal canal. Findings were as above. Local anesthetic was infiltrated using 20 cc deep filled subdermal and 20 cc intra sphincteric. The right posterior complex was excised and sent as a specimen. The wound was closed with subcuticular interrupted 4-0 Vicryl suture. Large internal hemorrhoids were then rubber-band ligated at the left lateral position as well as the right anterior position. No additional anorectal pathology was noted. The rectum was dressed with Xeroform gauze fluffs and Promise panties. The patient was returned to a supine position, awakened taken to recovery in good condition. Sponge and needle counts were correct x2. Estimated Blood Loss -5 Urine Output 0 Drains No Packing No Pathology Yes ( right posterior complex internal and external hemorrhoids) Complications No immediate complications Condition Stable Disposition PACU [facility] Billing Surgery - Charge Forward: Surgery Billing ( excision single complex internal and external hemorrhoids, rubber-band ligation internal hemorrhoids.)
[2022-09-20] MEDS: HYDROcodone/acetaminophen (*CRX) 5-325 MG TABLET 1 TAB PO (17:45)
[2022-09-20] MEDS: IBUPROFEN IV 800 MG/200 ML 800 MG/200 ML BAG 400 MG IVPB (21:22)
[2022-09-20] MEDS: SODIUM CHLORIDE 0.9% IV 1,000 ML 999 ML IV CONT (21:34)
[2022-09-20] MEDS: WITCH HAZEL 40 PADS 1 PAD TOPICAL (21:34)
--- NOTE | 2022-09-20 21:36 | PC.NURSE ---
pt with soft bp 86/40 reported to MERARI Kohli ordered cmp and x1 L NS bolus
--- NOTE | 2022-09-20 21:53 | PC.NURSE ---
bp 121/45 now
[2022-09-20 23:16] LABS: Alanine Aminotransferase 48 U/L (6-35); Albumin Level 3.4 g/dL (3.5-5.1); Alkaline Phosphatase 38 U/L (38-126); Anion Gap 7 mmol/L (8-16); Aspartate Amino Transferase 40 U/L (14-36); Bilirubin,Total 0.2 mg/dL (0.2-1.3); Blood Urea Nitrogen 14 mg/dL (7-17); Calcium 8.1 mg/dL (8.4-10.2); Carbon Dioxide 24 mmol/L (22-30); Chloride 107 mmol/L (98-107); Estimated CRCL calculation 62 ml/min; Estimated Glomerular Filt Rate 44; Glucose 99 mg/dL (65-110); Potassium 3.6 mmol/L (3.4-5.0); Sodium 138 mmol/L (137-145)
[2022-09-21] VITALS (9 sets, daily range): BP systolic 103–144; BP diastolic 42–65; PULSE 66–74; RESP 14–18; TEMP 35.9–37.1; O2SAT 96–100
[2022-09-21] MEDS: HYDROcodone/acetaminophen (*CRX) 5-325 MG TABLET 1 TAB PO ×2 (02:14→06:26)
[2022-09-21 07:09] LABS: Hematocrit 23.4 % (37.0-47.0); Mean Corpuscular HGB Conc 29.9 g/dl (32-36); Mean Corpuscular Hemoglobin 29.8 pg (26-34); Mean Corpuscular Volume 99.6 fl (80-100); Mean Platelet Volume 11.1 fl (7.4-10.4); Platelet Count Result 234 k/mm3 (150-375); Red Blood Count 2.35 M/mm3 (4.2-5.4); Red Cell Distribution Width 13.6 % (11.5-14.5); White Blood Count 7.7 K/mm3 (4.5-10.0)
[2022-09-21 07:26] LABS: Anion Gap 4 mmol/L (8-16); Blood Urea Nitrogen 14 mg/dL (7-17); Calcium 8.4 mg/dL (8.4-10.2); Carbon Dioxide 26 mmol/L (22-30); Chloride 106 mmol/L (98-107); Estimated CRCL calculation 62 ml/min; Estimated Glomerular Filt Rate 44; Glucose 99 mg/dL (65-110); Magnesium 1.8 mg/dL (1.6-2.3); Potassium 3.4 mmol/L (3.4-5.0); Sodium 136 mmol/L (137-145)
--- NOTE | 2022-09-21 07:29 | PM.PNGS ---
Progress Note: A&P Assessment and Plan (1) Internal hemorrhoids with complication: Code(s): K64.8 - Other hemorrhoids Status: Chronic Assessment and Plan: Doing okay after surgery. Pain is about as expected. Patient would like to be discharged. Okay from my standpoint to discharge. Discharge instructions given. I will see her in 2 weeks. (2) External hemorrhoids with complication: Code(s): K64.4 - Residual hemorrhoidal skin tags Status: Chronic (3) Symptomatic anemia: Code(s): D64.9 - Anemia, unspecified Status: Acute Subjective Subjective Date/Time Seen: 09/21/22 07:29 Post Op day: 1 Patient reports: still having pain (But only taking oral analgesics), no flatus, no bowel movement and afebrile Exam GI: Rectal Exam: tenderness ( no hematoma, some bruising and swelling as expected.) Objective Data Vital Signs Vital Signs: Vital Signs - 24 hr 09/20/22 13:35 09/20/22 15:50 09/20/22 16:05 Temperature 36.1 C L 36.6 C Pulse Rate 70 99 85 Respiratory Rate 18 18 18 Blood Pressure 115/55 L 103/48 L 103/52 L Pulse Oximetry 99 100 100 Oxygen Delivery Room Air Simple Face Mask Room Air Oxygen Flow Rate 8 09/20/22 16:15 09/20/22 16:25 09/20/22 16:35 Temperature Pulse Rate 80 79 80 Respiratory Rate 20 16 18 Blood Pressure 119/44 L 121/45 L 119/44 L Pulse Oximetry 100 100 100 Oxygen Delivery Room Air Room Air Room Air Oxygen Flow Rate 09/20/22 16:45 09/20/22 16:52 09/20/22 17:05 Temperature 36.5 C Pulse Rate 78 81 80 Respiratory Rate 18 16 16 Blood Pressure 127/49 L 120/79 122/50 L Pulse Oximetry 100 100 96 Oxygen Delivery Room Air Room Air Room Air Oxygen Flow Rate 09/20/22 17:20 09/20/22 18:00 09/20/22 20:00 Temperature 36.3 C L Pulse Rate 81 78 78 Respiratory Rate 16 18 18 Blood Pressure 113/54 L 145/71 H Pulse Oximetry 100 100 100 Oxygen Delivery Room Air Room Air Oxygen Flow Rate 09/20/22 21:36 09/20/22 21:12 09/20/22 21:53 Temperature 36.6 C Pulse Rate 64 Respiratory Rate 12 Blood Pressure 100/38 L 86/40 L 121/45 L Pulse Oximetry 98 Oxygen Delivery Oxygen Flow Rate 09/21/22 06:16 Temperature 36.6 C Pulse Rate 67 Respiratory Rate 14 Blood Pressure 103/42 L Pulse Oximetry 96 Oxygen Delivery Oxygen Flow Rate Intake/Output Intake/Output: Intake & Output 09/18/22 09/19/22 09/20/22 09/21/22 23:59 23:59 23:59 23:59 Intake Total 0 2300 650 750 Output Total 0 0 1000 Balance 0 2300 650 -250 Meds/Results Medications: Active Medications Generic Name Dose Route Start Last Admin Trade Name Freq PRN Reason Stop Dose Admin Acetaminophen 500 mg 09/20/22 17:20 Acetaminophen 500 Mg Tablet PO Q6H PRN Mild Pain (1-3) or Fever Hydrocodone Bitart/Acetaminophen 1 tab 09/20/22 17:20 Hydrocodone/Acetaminophen (*Crx) 10-325 Mg Tablet PO Q6H PRN Pain Rated 7-10 Hydrocodone Bitart/Acetaminophen 1 tab 09/20/22 17:20 09/21/22 06:26 Hydrocodone/Acetaminophen (*Crx) 5-325 Mg Tablet PO 1 tab Q4H PRN Administration Pain Rated 4-6 Enoxaparin Sodium 40 mg 09/21/22 09:00 Enoxaparin 40 Mg/0.4 Ml Syringe SUB-Q DAILY JERRY Estradiol 0.5 mg 09/19/22 09:00 09/20/22 09:39 Estradiol 0.5 Mg Tablet PO 0.5 mg DAILY JERRY Administration Fluticasone Propionate 1 spray 09/19/22 09:00 09/20/22 09:38 Fluticasone Propionate 0.05% Na Spr 16 Gm Btl (*Bkc) NASAL 1 spray DAILY JERRY Administration Hydrochlorothiazide 25 mg 09/19/22 09:00 09/20/22 09:39 Hydrochlorothiazide 25 Mg Tablet PO 25 mg DAILY JERRY Administration Hydroxychloroquine Sulfate 200 mg 09/18/22 20:45 09/20/22 17:44 Hydroxychloroquine Sulfate 200 Mg Tablet PO 200 mg BID JERRY Administration Ibuprofen 800 mg in 200 mls @ 400 mls/hr 09/20/22 17:20 09/20/22 21:52 Caldolor 800 Mg/200 Ml IVPB Infused Q6H PRN Infusion Pain Rated 1-3 Leflunomide
[2022-09-21] MEDS: LEFLUNOMIDE 10 MG TABLET PO (09:18)
[2022-09-21] MEDS: HYDROXYCHLOROQUINE SULFATE 200 MG TABLET PO ×2 (09:18→17:45)
[2022-09-21] MEDS: estradioL 0.5 MG TABLET PO (09:18)
[2022-09-21] MEDS: MINERAL OIL 30 ML UDC 15 ML PO ×2 (09:19→17:45)
[2022-09-21] MEDS: FLUTICASONE PROPIONATE 0.05% NA SPR 16 GM BTL (*BKC) 1 SPRAY NASAL (09:19)
[2022-09-21] MEDS: MORPHINE SULFATE (*CRX) 2 MG/ML INJ IV PUSH (09:19)
[2022-09-21] MEDS: PSYLLIUM POWDER PACKET 1 PACKET PO ×2 (09:19→17:45)
--- NOTE | 2022-09-21 10:43 | WPDANESPN ---
Anes - Prog Note Post-Op Date/Time: 09/21/22 09:52 Cardiovascular status: normal Respiratory status: normal Airway patency: baseline Mental status: baseline Post-Op hydration status: normal Vital Signs: Last Vital Signs Temp 97.9 F 09/21/22 06:16 Pulse 67 09/21/22 06:16 Resp 14 09/21/22 06:16 BP 103/42 L 09/21/22 06:16 Pulse Ox 96 09/21/22 06:16 O2 Del Method Room Air 09/20/22 20:00 O2 Flow Rate 8 09/20/22 15:50 Pain Score (VAS): 3 I/O: Intake & Output 09/20/22 09/21/22 09/21/22 23:59 07:59 15:59 Intake Total 985 961 6617 Output Total 0 1000 Balance 600 -250 1480 Laboratory Tests 09/21/22 06:56 09/21/22 06:56 09/18/22 09/20/22 09/21/22 09:00 22:42 06:56 WBC RBC Hgb Hct MCV MCH MCHC RDW Plt Count MPV Sodium 138 136 L Potassium 3.6 3.4 Chloride 107 106 Carbon Dioxide 24 26 Anion Gap 7 L 4 L BUN 14 14 Creatinine 1.30 H 1.30 H Estim Creat Clear Calc 62 62 Estimated GFR 44 L 44 L Glucose 99 99 Calcium 8.1 L 8.4 Magnesium 1.8 Total Bilirubin 0.2 AST 40 H ALT 48 H Alkaline Phosphatase 38 Total Protein 6.0 L Albumin 3.4 L Blood Type O Positive Antibody Screen Negative Crossmatch See Detail 09/21/22 06:56 WBC 7.7 RBC 2.35 L Hgb 7.0 L Hct 23.4 L MCV 99.6 MCH 29.8 MCHC 29.9 L RDW 13.6 Plt Count 234 MPV 11.1 H Sodium Potassium Chloride Carbon Dioxide Anion Gap BUN Creatinine Estim Creat Clear Calc Estimated GFR Glucose Calcium Magnesium Total Bilirubin AST ALT Alkaline Phosphatase Total Protein Albumin Blood Type Antibody Screen Crossmatch Post-procedural complaints: none Patient Feedback: Patient satisfied with anesthetic care.
[2022-09-21] MEDS: MORPHINE SULFATE (*CRX) 4 MG/ML INJ IV PUSH ×3 (11:15→17:46)
[2022-09-21] MEDS: SODIUM CHLORIDE 0.9% IV 250 ML 30 ML IV CONT (11:40)
--- NOTE | 2022-09-21 13:16 | PM.IMPN ---
Progress Note: A&P Assessment and Plan (1) Acute blood loss anemia: Code(s): D62 - Acute posthemorrhagic anemia Status: Acute Assessment and Plan: Patient presented to the hospital with multiple maroon colored stools. Hemoglobin decreased by 2 points upon admission from baseline. She trended down to 6.3 hemoglobin and received 1 unit of packed red blood cells on 09/18/2022 Colonoscopy was performed on 09/19 patient was found to have multiple medium-sized uncomplicated internal hemorrhoids in the rectum with stigmata of bleeding. She also had multiple medium diverticuli in the sigmoid colon without active bleeding. Underwent excision of right posterior complex of internal and external hemorrhoids H&H declined to 7.0 today Will proceed with 1 unit packed RBCs and monitor H&H closely (2) Acute GI bleeding: Code(s): K92.2 - Gastrointestinal hemorrhage, unspecified Status: Acute Assessment and Plan: As above. Colonoscopy suggested bleeding internal hemorrhoids. General surgery was consulted and pt underwent excision of internal and external hemorrhoids as well as rubber-band Pt reports oozing from rectum today but improved (3) Elevated LFTs: Code(s): R79.89 - Other specified abnormal findings of blood chemistry Status: Chronic Assessment and Plan: AST and ALT appear to be mildly elevated since April of 2021. CT abdomen and pelvis in April 2021 showed diffuse hepatic steatosis. Likely non alcoholic fatty liver disease. Trend LFTs (4) Hypertension: Qualifiers: Hypertension type: essential hypertension Qualified Code(s): I10 - Essential (primary) hypertension Code(s): I10 - Essential (primary) hypertension Status: Chronic Assessment and Plan: Chronic, stable. BP slightly soft today, likely due to anemia. Last BP 120/50 Continue HCTZ and lisinopril (5) Psoriatic arthritis: Code(s): L40.50 - Arthropathic psoriasis, unspecified Status: Chronic Assessment and Plan: Chronic, unchanged. Continue patient hydroxychloroquine and leflunomide Subjective Date/time seen: 09/21/22 13:16 Interval history: Date of service: 09/21/2022 Tequila Simpson is a 47-year-old female with a history of anxiety, depression, hypertension, hyperparathyroidism, Sjogren syndrome, scoliosis, who is seen in for rectal bleeding s/p hemorrhoidectomy. She is feeling better today. This morning she had 7/10 rectal pain that has improved after taking morphine. Currently her pain is 2/10. When her pain is more severe, she does have associated dizziness and lightheadedness. She states last night she was dripping blood but today just a light oozing of bright red blood from the rectum. She has had improvement with tucks pads. She has not had a bowel movement. She is tolerating her diet today. She denies abdominal pain, nausea, vomiting. No fever, chills, shortness of breath, cough, chest pain, or palpitations. She is ambulating without difficulty. Review of Systems Review of Systems: All systems reviewed & are unremarkable except as noted in HPI and below Exam Narrative: General: Obese, well-appearing 47-year-old female, sitting up in bed, comfortable, NARD Neuro: awake, alert and oriented x4, speech clear, no focal neuro deficits noted HEENMT: normocephalic, atraumatic, EOMI, sclerae anicteric, moist oral mucosa Respiratory: clear to auscultation bilaterally, nonlabored breathing Cardio: regular rate, regular rhythm with S1-S2 Abdomen: nondistended, normoactive bowel sounds, soft, nontender to palpation Extremities: no edema, erythema, or tenderness to palpation, DP pulses 2+ bilaterally Skin: no rashes or lesions, warm and dry Psych: appropriate mood and affect, judgment and insight intact Objective Data Vital Signs Vital Signs: Vital Signs - 24 hr 09/20/22 13:35 09/20/22 15:50 09/20/22 16:05 Temperature 97.0 F
[2022-09-21 17:06] LABS: Hematocrit 27.7 % (37.0-47.0); Hemoglobin 8.5 g/dL (12.0-15.0)
[2022-09-21] MEDS: HYDROcodone/acetaminophen (*CRX) 10-325 MG TABLET 1 TAB PO (21:56)
[2022-09-22] MEDS: HYDROcodone/acetaminophen (*CRX) 5-325 MG TABLET 1 TAB PO (05:15)
[2022-09-22 08:37] LABS: Hematocrit 26.6 % (37.0-47.0); Hemoglobin 8.1 g/dL (12.0-15.0); Mean Corpuscular HGB Conc 30.5 g/dl (32-36); Mean Corpuscular Hemoglobin 29.2 pg (26-34); Mean Platelet Volume 11.4 fl (7.4-10.4); Platelet Count Result 241 k/mm3 (150-375); Red Blood Count 2.77 M/mm3 (4.2-5.4); Red Cell Distribution Width 13.6 % (11.5-14.5); White Blood Count 7.2 K/mm3 (4.5-10.0)
[2022-09-22 09:06] LABS: Anion Gap 6 mmol/L (8-16); Blood Urea Nitrogen 10 mg/dL (7-17); Calcium 8.9 mg/dL (8.4-10.2); Carbon Dioxide 26 mmol/L (22-30); Chloride 106 mmol/L (98-107); Estimated CRCL calculation 98 ml/min; Estimated Glomerular Filt Rate > 60; Glucose 95 mg/dL (65-110); Magnesium 1.9 mg/dL (1.6-2.3); Potassium 3.5 mmol/L (3.4-5.0); Sodium 138 mmol/L (137-145)
--- NOTE | 2022-09-22 09:43 | PM.DS ---
DS: Admitting Diagnosis Discharge Date 09/22/2022 Admitting Diagnosis GI bleed DS: Discharge Diagnosis Discharge Diagnosis (1) Acute blood loss anemia: Code(s): D62 - Acute posthemorrhagic anemia Status: Acute Assessment and Plan: Patient presented to the hospital with multiple maroon colored stools. Hemoglobin decreased by 2 points upon admission from baseline. She trended down to 6.3 hemoglobin and received 1 unit of packed red blood cells on 09/18/2022 Colonoscopy was performed on 09/19 patient was found to have multiple medium-sized uncomplicated internal hemorrhoids in the rectum with stigmata of bleeding. She also had multiple medium diverticuli in the sigmoid colon without active bleeding. Underwent excision of right posterior complex of internal and external hemorrhoids on 09/20/2022 H&H declined postoperatively and patient was transfused 1 additional unit of packed RBCs. Hemoglobin remained stable following transfusion with no ongoing bleeding Repeat H&H as an outpatient (2) Acute GI bleeding: Code(s): K92.2 - Gastrointestinal hemorrhage, unspecified Status: Acute Assessment and Plan: As above. Colonoscopy suggested bleeding internal hemorrhoids. General surgery was consulted and pt underwent excision of internal and external hemorrhoids as well as rubber-band ligation of internal hemorrhoids Bleeding resolved (3) Elevated LFTs: Code(s): R79.89 - Other specified abnormal findings of blood chemistry Status: Chronic Assessment and Plan: AST and ALT appear to be mildly elevated since April of 2021. CT abdomen and pelvis in April 2021 showed diffuse hepatic steatosis. Likely non alcoholic fatty liver disease. Continue to monitor as an outpatient (4) Hypertension: Qualifiers: Hypertension type: essential hypertension Qualified Code(s): I10 - Essential (primary) hypertension Code(s): I10 - Essential (primary) hypertension Status: Chronic Assessment and Plan: Chronic, stable. Continue HCTZ and lisinopril (5) Psoriatic arthritis: Code(s): L40.50 - Arthropathic psoriasis, unspecified Status: Chronic Assessment and Plan: Chronic, unchanged. Continue hydroxychloroquine and leflunomide DS: Summary Hospital Course Hospital Course: date of admission 09/18/2022 date of discharge: 09/22/2022 Tequila Simpson is a 47-year-old female with a history of anxiety, depression, hypertension, hyperparathyroidism, Sjogren syndrome, and scoliosis who presented to the emergency department 09/18/2022 with GI bleeding ongoing since September 06, 2022. she had been having frequent return colored stools and had outpatient labs which revealed a low hemoglobin. She also complained of persistent fatigue and dyspnea on exertion. On presentation to the ED, her blood pressure was elevated with additional vital signs stable, hemoglobin 7.5, hematocrit 24.2, additional laboratory workup unremarkable. she was admitted to the hospitalist service for further evaluation and management and was seen in consultation by General surgery and Gastroenterology. Hemoglobin declined to 6.3 and the patient was transfused. She underwent colonoscopy which revealed multiple internal hemorrhoids with stigmata of bleeding. She then underwent hemorrhoid excision and she tolerated this procedure well. she had slight decline in hemoglobin postoperatively and was transfused additional 1 unit of packed red blood cells. She had no ongoing GI bleeding and H&H remained stable following transfusion. She was tolerating her diet and her pain was well controlled. Given this improvement, she was determined to no longer require inpatient care. She will follow-up with General surgery and Gastroenterology as an outpatient and will repeat hemoglobin and hematocrit level as an outpatient in 1 week. Patient was comfortable with plans for discharge home. Discussed
[2022-09-22] MEDS: HYDROXYCHLOROQUINE SULFATE 200 MG TABLET PO (10:06)
[2022-09-22] MEDS: estradioL 0.5 MG TABLET PO (10:06)
[2022-09-22] MEDS: MINERAL OIL 30 ML UDC 15 ML PO (10:07)
[2022-09-22] MEDS: FLUTICASONE PROPIONATE 0.05% NA SPR 16 GM BTL (*BKC) 1 SPRAY NASAL (10:07)
[2022-09-22] MEDS: LEFLUNOMIDE 10 MG TABLET PO (10:07)
[2022-09-22] MEDS: PSYLLIUM POWDER PACKET 1 PACKET PO (10:07)
--- NOTE | 2022-09-22 11:42 | PM.PNGS ---
Progress Note: A&P Assessment and Plan (1) Internal hemorrhoids with complication: Code(s): K64.8 - Other hemorrhoids Status: Chronic Assessment and Plan: This apparently was the patient's source of bleeding. Instructions have been given for a voiding problems with hemorrhoids in the future including high-fiber diet, fiber supplement, Sitz bath as now until she follows up with Dr. Rene in 2 weeks. (2) External hemorrhoids with complication: Code(s): K64.4 - Residual hemorrhoidal skin tags Status: Chronic Assessment and Plan: Pathology pending. Recommended Sitz beds and instructions are in the discharge summary. Patient instructions will also be sent home per nursing. Follow up with Dr. Rene in 2 weeks in the office. Subjective Subjective Date/Time Seen: 09/22/22 11:42 Post Op day: 2 (Pain is less today) Patient reports: feels better ( understands instructions for Sitz baths,ect.) Interval history: states she feels good and wishes to go home. Hemoglobin today was 8.1. Review of Systems Review of Systems: All systems reviewed & are unremarkable except as noted in HPI and below Constitutional: Constitutional: Reports as per HPI, Denies chills and Denies fever(s) Cardiovascular: Cardiovascular: Denies chest pain and Denies dyspnea Respiratory: Respiratory: Reports no additional respiratory complaints and Denies dyspnea Gastrointestinal: Gastrointestinal: Reports as per HPI and Denies bloating Musculoskeletal: Musculoskeletal: Reports no additional musculoskeletal complaints Exam Narrative: Patient standing at bedside. States she feels comfortable. Mucous membranes moist. No further exam today as patient states she feels good and is ready to go home. Objective Data Vital Signs Vital Signs: Vital Signs - 24 hr 09/21/22 11:57 09/21/22 12:57 09/21/22 13:57 Temperature 36.2 C L 37.0 C 36.6 C Pulse Rate 74 70 70 Respiratory Rate 18 16 16 Blood Pressure 111/58 L 120/50 L 106/54 L Pulse Oximetry 99 98 99 Oxygen Delivery 09/21/22 14:48 09/21/22 21:44 09/21/22 20:40 Temperature 37.1 C 35.9 C L Pulse Rate 66 69 69 Respiratory Rate 16 16 16 Blood Pressure 112/62 144/65 H Pulse Oximetry 98 100 100 Oxygen Delivery Room Air 09/22/22 10:00 Temperature Pulse Rate Respiratory Rate Blood Pressure Pulse Oximetry Oxygen Delivery Room Air Intake/Output Intake/Output: Intake & Output 09/19/22 09/20/22 09/21/22 09/22/22 23:59 23:59 23:59 23:59 Intake Total 2300 650 2940 580 Output Total 0 1000 Balance 2300 650 1940 580 Meds/Results Medications: Active Medications Generic Name Dose Route Start Last Admin Trade Name Freq PRN Reason Stop Dose Admin Acetaminophen 500 mg 09/20/22 17:20 Acetaminophen 500 Mg Tablet PO Q6H PRN Mild Pain (1-3) or Fever Hydrocodone Bitart/Acetaminophen 1 tab 09/20/22 17:20 09/21/22 21:56 Hydrocodone/Acetaminophen (*Crx) 10-325 Mg Tablet PO 1 tab Q6H PRN Administration Pain Rated 7-10 Hydrocodone Bitart/Acetaminophen 1 tab 09/20/22 17:20 09/22/22 05:15 Hydrocodone/Acetaminophen (*Crx) 5-325 Mg Tablet PO 1 tab Q4H PRN Administration Pain Rated 4-6 Enoxaparin Sodium 40 mg 09/21/22 09:00 09/22/22 10:08 Enoxaparin 40 Mg/0.4 Ml Syringe SUB-Q Not Given DAILY JERRY Estradiol 0.5 mg 09/19/22 09:00 09/22/22 10:06 Estradiol 0.5 Mg Tablet PO 0.5 mg DAILY JERRY Administration Fluticasone Propionate 1 spray 09/19/22 09:00 09/22/22 10:07 Fluticasone Propionate 0.05% Na Spr 16 Gm Btl (*Bkc) NASAL 1 spray DAILY JERRY Administration Hydrochlorothiazide 25 mg 09/19/22 09:00 09/22/22 10:08 Hydrochlorothiazide 25 Mg Tablet PO Not Given DAILY JERRY Hydroxychloroquine Sulfate 200 mg 09/18/22 20:45 09/22/22 10:06 Hydroxychloroquine Sulfate 200 Mg Tablet PO 200 mg BID JERRY Administration Ibuprofen 800 mg in 200 mls @ 400 mls/hr
== END 2022-09-22 11:55 | disposition home or self-care (01) | DRG 348 ==
LOC: ANHED 12:29 → ANH3MEDSUR 13:31
PROVIDERS: Family Medicine; Internal Medicine Gastroenterology; Nurse Practitioner; Physician Assistant; Surgery; Admitting Provider Internal Medicine; Emergency Provider Emergency Medicine; PCP Internal Medicine; Visit Provider Physician Assistant
PROC: 0DJD8ZZ Inspection of Lower Intestinal Tract, Via Natural or Artificial Opening Endoscopic (ICD-10-PCS; CPT 45378; principal; 2022-09-19 12:30)
PROC: 06BY3ZC Excision of Hemorrhoidal Plexus, Percutaneous Approach (ICD-10-PCS; principal; 2022-09-20 14:30)
DX: K64.8 Other hemorrhoids (principal); D62 Acute posthemorrhagic anemia; K64.4 Residual hemorrhoidal skin tags; K57.30 Diverticulosis of large intestine without perforation or abscess without bleeding; E21.3 Hyperparathyroidism, unspecified; E55.9 Vitamin D deficiency, unspecified; E66.01 Morbid (severe) obesity due to excess calories; F41.9 Anxiety disorder, unspecified; F32.A Depression, unspecified; G89.4 Chronic pain syndrome; I10 Essential (primary) hypertension; L40.50 Arthropathic psoriasis, unspecified; M35.00 Sjogren syndrome, unspecified; M41.9 Scoliosis, unspecified; R79.89 Other specified abnormal findings of blood chemistry; Z20.822 Contact with and (suspected) exposure to COVID-19; Z90.710 Acquired absence of both cervix and uterus; Z98.1 Arthrodesis status
CPT/HCPCS: 36415; 36430; 80048; 80053; 82948; 83735; 85014; 85018; 85025; 85027; 85610; 85730; 86850; 86900; 86901; 86923; 87636; 88304; 96361; 96374; 99285; A9270; C9113; G0378; J0330; J0690; J1741; J2250; J2270; J2405; J2704; J3010; J7030; J7050; J7120; P9016

== ENCOUNTER → 2022-10-23 10:24 | Outpatient (CLI) | payer OTHER, SELFPAY ==
--- NOTE | ~2022-10-23 | MM_ITS ---
EXAMINATION: MM screening eben BI w [facility]att HISTORY: Screening mammogram TECHNIQUE: Craniocaudal and mediolateral oblique 3-D tomosynthesis images were obtained and synthetic 2-D images were generated. CAD analysis was submitted and interpreted. COMPARISON: 08/10/2021 bilateral screening mammogram BREAST PARENCHYMAL COMPOSITION: The breasts are almost entirely fatty. FINDINGS: There is no evidence of suspicious mass, calcification, or architectural distortion to sugg est malignancy in either breast. There has been no suspicious interval change. IMPRESSION: 1. No mammographic evidence of malignancy. 2. Recommend routine screening mammography in one year. BI-RADS Category 1: Negative Reviewed, dictated and finalized at location A. TECHNICIAN
== END ==
PROVIDERS: PCP Internal Medicine; Visit Provider Nurse Practitioner
DX: Z12.31 Encounter for screening mammogram for malignant neoplasm of breast (principal)
CPT/HCPCS: 77063; 77067

== ENCOUNTER 2023-09-04 08:56 | Outpatient (CLI) | payer OTHER, SELFPAY ==
[2023-09-04 12:02] LABS: Basophils Absolute Auto 0.1 K/mm3 (0.0-0.1); Basophils Percent Auto 1.6 % (0.2-1.2); Eosinophils Absolute Auto 0.3 K/mm3 (0-0.3); Eosinophils Percent Auto 6.6 % (0-4.4); Hematocrit 46.5 % (37.0-47.0); Hemoglobin 15.2 g/dL (12.0-15.0); Immature Granulocyte Absolute 0.01 K/mm3 (0.00-0.031); Immature Granulocyte Percent A 0.2 % (0-0.5); Lymphocytes Percent Auto 37.8 % (18.3-44.2); Mean Corpuscular HGB Conc 32.7 g/dl (32-36); Mean Corpuscular Hemoglobin 32.5 pg (26-34); Mean Corpuscular Volume 99.4 fl (80-100); Mean Platelet Volume 12.6 fl (7.4-10.4); Monocytes Absolute Auto 0.7 K/mm3 (0.1-0.6); Monocytes Percent Auto 13.5 % (2.6-8.5); Neutrophils Percent Auto 40.3 % (45.5-73.1); Platelet Count Result 186 k/mm3 (150-375); Red Blood Count 4.68 M/mm3 (4.2-5.4)
[2023-09-04 12:12] LABS: Alanine Aminotransferase 63 U/L (6-35); Albumin Level 4.4 g/dL (3.5-5.1); Alkaline Phosphatase 66 U/L (38-126); Anion Gap 11 mmol/L (8-16); Aspartate Amino Transferase 61 U/L (14-36); Bilirubin,Total 0.9 mg/dL (0.2-1.3); Blood Urea Nitrogen 15 mg/dL (7-17); Calcium 10.3 mg/dL (8.4-10.2); Carbon Dioxide 29 mmol/L (22-30); Chloride 99 mmol/L (98-107); Cholesterol 244 mg/dL (0-200); Estimated Glomerular Filt Rate > 60; Glucose 94 mg/dL (65-110); Potassium 3.9 mmol/L (3.4-5.0); Sodium 139 mmol/L (137-145); Triglycerides 104 mg/dL (<150)
[2023-09-04 12:23] LABS: LDL Cholesterol Direct 107 mg/dL
[2023-09-04 12:24] LABS: HDL Direct 119 mg/dL
[2023-09-04 13:02] LABS: Vitamin D 25 Hydroxy 77.6 ng/mL
== END 2023-09-04 08:57 | disposition home or self-care (01) ==
LOC: ANHGOSHLAB 08:58
PROVIDERS: PCP Internal Medicine; Visit Provider Nurse Practitioner
DX: E55.9 Vitamin D deficiency, unspecified (principal); E78.5 Hyperlipidemia, unspecified; Z13.29 Encounter for screening for other suspected endocrine disorder
CPT/HCPCS: 36415; 80053; 80061; 82306; 85025

== ENCOUNTER → 2023-11-22 15:02 | Outpatient (CLI) | payer OTHER, SELFPAY ==
--- NOTE | ~2023-11-22 | MM_ITS ---
EXAMINATION: MM screening eben BI w wyatt HISTORY: Screening mammogram TECHNIQUE: Craniocaudal and mediolateral oblique 3-D tomosynthesis images were obtained and synthetic 2-D images were generated. CAD analysis was submitted and interpreted. COMPARISON: 10/23/2022, 07/21/2021 bilateral screening mammogram examinations BREAST PARENCHYMAL COMPOSITION: There are scattered areas of fibroglandular density. FINDINGS: There is no evidence of suspicious mass, calcification, or architectural distortion to sugg est malignancy in either breast. There has been no suspicious interval change. IMPRESSION: 1. No mammographic evidence of malignancy. 2. Recommend routine screening mammography in one year. BI-RADS Category 1: Negative Reviewed, dictated and finalized at location A. CAM PROGRAMMER
== END ==
PROVIDERS: PCP Internal Medicine; Visit Provider Internal Medicine
DX: Z12.31 Encounter for screening mammogram for malignant neoplasm of breast (principal)
CPT/HCPCS: 77063; 77067

== ENCOUNTER 2023-12-05 12:22 | Emergency (ER) | payer OTHER, SELFPAY ==
--- NOTE | ~2023-12-05 | CT_ITS ---
EXAMINATION: CT brain wo con DATE: 12/05/2023 12:54 INDICATION: Fall with head injury TECHNIQUE: Computed tomography (CT) of the head was performed without intravenous contrast. Sagittal and coronal reconstructions were performed. The mA was adjusted according to patient size. Iterative reconstruction technique was employed. The dose-length product was 681.00 mGy-cm. COMPARISON: head CT dated 02/02/2013 FINDINGS: No fracture. No acute intracranial hemorrhage, acute infarction or abnormal extra axial fluid collect ion. Small old lacunar infarct at the left lentiform nucleus. There is mild scattered white matter hy poattenuation consistent with chronic small vessel ischemic disease. Ventricles are normal and symme tric. No mass/mass effect. The orbits, paranasal sinuses and mastoid air cells are normal. IMPRESSION: 1. No fracture or acute intracranial process. 2. Small old lacunar infarct at the left lentiform nucleus and mild scattered white matter hypoattenu ation consistent with chronic small vessel ischemic disease. Reviewed, dictated and finalized at location A. TING MACHINE OPERATOR IMPRESSION: 1. No fracture or acute intracranial process. 2. Small old lacunar infarct at the left lentiform nucleus and mild scattered w analilia matter hypoattenuation consistent with chronic small vessel ischemic disea se.
--- NOTE | ~2023-12-05 | CT_ITS ---
EXAMINATION: 1. CT facial & cervical spine wo DATE: 12/05/2023 12:55 INDICATION: Fall with head injury TECHNIQUE: 1. Computed tomography (CT) of the maxillofacial region and of the cervical spine were performed with out intravenous contrast. Sagittal and coronal reconstructions of both regions were obtained. Automat ed exposure control and iterative reconstruction technique were employed. The dose-length product was 594.22 mGy-cm. COMPARISON: 01/01/2014 FINDINGS: Maxillofacial CT: Small left frontal scalp contusion extending along the lateral left periorbital rim. No calvarial or maxillofacial fractures. Specifically the chacon of the orbits and paranasal sinuses, the zygomatic ar ches and mandible are intact. Nasal septum is midline with left-sided spike. Orbits are normal with n o post septal inflammatory stranding. Paranasal sinuses, mastoid air cells and middle ear cavities ar e all clear. Cervical spine CT: There is metallic streak artifact region of the upper thoracic spine related to a posterior spinal fu hina with bilateral vertical kenny and pedicle screws intervening superiorly at T2 and extending throug h at least T6 on the civil preparedness officer topogram and beyond the inferior margin of imaging. Normal alignment in th e cervical spine with normal vertebral body and disc heights. There is unchanged chronic mild anterio r wedging at T1. No acute fractures. The cervical discs do not extend beyond the endplate margins wit h no central canal stenosis. There is scattered minimal to mild cervical facet and uncovertebral oste oarthritis with no neural foraminal stenosis. There is fusion across the left T1-T2 facet joint and m oderate osteoarthritis with suggestion of developing fusion at the right T1-T2 facet joint. Visualize d apices of lungs are clear. IMPRESSION: 1. No maxillofacial fractures. 2. Minimal cervical spondylosis with no acute osseous abnormality. 3. Chronic mild anterior wedging at T1 with partially visualized instrumented posterior spinal fusion extending from T2 through at least T6 on the caudal-most images. Reviewed, dictated and finalized at location A. NICAL PRODUCER IMPRESSION: 1. No maxillofacial fractures. 2. Minimal cervical spondylosis with no acute osseous abnormality. 3. Chronic mild anterior wedging at T1 with partially visualized instrumented p osterior spinal fusion extending from T2 through at least T6 on the caudal-most images.
[2023-12-05 12:25] VITALS: BP 166/74; PULSE 76; RESP 20; TEMP 35.6; O2SAT 99
--- NOTE | 2023-12-05 12:36 | ED.HEATRA ---
HPI - Head Injury General Chief complaint: Head Injury Stated complaint: Head injury Saturday Time Seen by Provider: 12/05/23 12:36 Source: patient Mode of arrival: ambulatory History of Present Illness HPI Narrative: 48 years old white female drove herself to the emergency room because of bruises of the left upper eyelid. Patient reported going to the bathroom 2 days ago, tripped on something, fell and hit probably the age of the sink or the toilet, was dark at that time, maybe loss of consciousness for couple seconds, patient was on the floor, was able to get up and go back to bed. Subsequently started having headache and neck pain today left upper lid bruises. Patient denies any fever, chills, or vomiting. Related Data Home Medications Medication Instructions Recorded Confirmed adalimumab 40 mg/0.8 mL See Rx Instructions subcut .COMPLEX 08/25/19 09/04/23 subcutaneous syringe kit (Humira) biotin 1 mg capsule 1 mg PO DAILY 08/25/19 09/04/23 cholecalciferol (vitamin D3) 50 6,000 unit PO DAILY 08/25/19 09/04/23 mcg (2,000 unit) tablet hydroxychloroquine 200 mg tablet 200 mg PO BID 08/25/19 09/04/23 (Plaquenil) estradiol 0.5 mg tablet 0.5 mg PO DAILY 07/16/20 09/04/23 omega-3 fatty acids 1,000 mg 2,000 mg PO DAILY 12/08/20 09/04/23 capsule (Fish Oil Concentrate) leflunomide 10 mg tablet 10 mg PO DAILY 09/18/22 09/04/23 qrgbrzcf-ckj-fnrx-FA-Ca carb-vit K 1 tablet PO DAILY 09/04/23 09/04/23 18 mg iron-400 mcg-500 mg tablet Allergies Allergy/AdvReac Type Severity Reaction Status Date / Time amoxicillin [From Augmentin] AdvReac Mild Stomach Verified 12/05/23 12:47 cramps, Diarrhea clavulanic acid AdvReac Mild Stomach Verified 12/05/23 12:47 [From Augmentin] cramps, Diarrhea Beta-Blockers AdvReac Unknown Verified 12/05/23 12:47 (Beta-Adrenergic Bloc Review of Systems Review of Systems: All systems reviewed & are unremarkable except as noted in HPI and below PMFSH Past Medical History Medical History Anxiety Chronic pain syndrome Depression Hyperparathyroidism Hypertension Insomnia Kidney stones Psoriatic arthritis Scoliosis Sjogrens syndrome Vitamin D deficiency Surgical History Surgical History H/O hemorrhoidectomy 09/20/2022 History of bilateral breast reduction surgery History of partial hysterectomy History of removal of cyst Scalp. History of spinal fusion Family History Family History Father Hypertension Family history of diabetes mellitus in first degree relative Mother Hypertension Sibling Family history of alcoholism Other Family history of cardiovascular disease Social History Social History Social History: Surrogate medical decision maker: Jensen Simpson, spouse. Code status: Full code. Smoking status: Never smoker Alcohol intake: former Alcohol use details: 4-5 drinks most nights, none since 2021 Substance use: current Substance use type: marijuana Other substance usage details: medical marijuana Last use: 09/17/22 Lack of Transportation: No Lack of Food: Never True Current Housing: I Have Housing Concerned About Future Housing: No Difficulty Paying Gas/Electric Bills: No Difficulty Paying for Meds: No Currently Unemployed: No Education: Bachelor's Degree Difficulty w/ Childcare or Family Care: No Additional living arrangements comments: Lives in [place] with spouse. They have grown children. Spiritual care concerns: No Exam Narrative: General appearance: Well-developed, well-nourished Skin: Normal color Head: Normocephalic, nontraumatic Eyes: Clear conjunctiva, left upper eyelid bruises ENT: Oropharynx normal, ears normal, nose normal Neck: Supple, nontender Chest and respir
--- NOTE | 2023-12-05 12:47 | PC.NURSE ---
Pt to CT scan via w/c at this time.
[2023-12-05 13:52] VITALS: BP 147/99; PULSE 63; RESP 17; O2SAT 99
== END 2023-12-05 13:54 | disposition home or self-care (01) ==
PROVIDERS: Emergency Provider Emergency Medicine; PCP Internal Medicine
DX: G44.309 Post-traumatic headache, unspecified, not intractable (principal); F07.81 Postconcussional syndrome; I10 Essential (primary) hypertension; E21.3 Hyperparathyroidism, unspecified; E55.9 Vitamin D deficiency, unspecified; L40.50 Arthropathic psoriasis, unspecified; G89.4 Chronic pain syndrome; M35.00 Sjogren syndrome, unspecified; Z87.442 Personal history of urinary calculi; Z90.711 Acquired absence of uterus with remaining cervical stump; Z98.1 Arthrodesis status
CPT/HCPCS: 70450; 70486; 72125; 99284

== ENCOUNTER 2024-08-14 10:57 | Outpatient (CLI) | payer OTHER, SELFPAY ==
[2024-08-14 14:25] LABS: Basophils Absolute Auto 0.1 K/mm3 (0.0-0.1); Basophils Percent Auto 0.9 % (0.2-1.2); Eosinophils Absolute Auto 0.4 K/mm3 (0-0.3); Eosinophils Percent Auto 5.3 % (0-4.4); Hemoglobin 13.6 g/dL (12.0-15.0); Immature Granulocyte Absolute 0.02 K/mm3 (0.00-0.031); Immature Granulocyte Percent A 0.2 % (0-0.5); Lymphocytes Absolute Auto 1.69 K/mm3 (0.9-3.2); Lymphocytes Percent Auto 20.7 % (18.3-44.2); Mean Corpuscular Hemoglobin 32.8 pg (26-34); Mean Corpuscular Volume 96.4 fl (80-100); Mean Platelet Volume 12.3 fl (7.4-10.4); Monocytes Absolute Auto 0.9 K/mm3 (0.1-0.6); Monocytes Percent Auto 11.5 % (2.6-8.5); Neutrophils Percent Auto 61.4 % (45.5-73.1); Platelet Count Result 189 k/mm3 (150-375); Red Blood Count 4.15 M/mm3 (4.2-5.4); Red Cell Distribution Width 12.1 % (11.5-14.5); White Blood Count 8.2 K/mm3 (4.5-10.0)
== END 2024-08-14 10:58 | disposition home or self-care (01) ==
LOC: ANHGOSHLAB 10:59
PROVIDERS: PCP Internal Medicine; Visit Provider Nurse Practitioner
DX: K62.5 Hemorrhage of anus and rectum (principal)
CPT/HCPCS: 36415; 85025

== ENCOUNTER 2024-09-22 00:54 | Day surgery (SDC) | payer OTHER, SELFPAY ==
[2024-09-02 09:44] VITALS: BMI 38.0
[2024-09-22 10:30] VITALS: BP 178/92; PULSE 71; RESP 20; TEMP 36.2; O2SAT 98
[2024-09-22] MEDS: LACTATED RINGERS 1,000 ML 150 ML IV CONT (10:37)
--- NOTE | 2024-09-22 10:44 | P.PNAN_ITS ---
Anes - Initial Pre Proc Eval Procedure: Operation Date: 09/22/24 14:30 Proposed Procedures p Flexible Sigmoidoscopy - Shine Valdez MD s [facility] Hemorrhoid Treatment - Shine Valdez MD Date/Time: 09/22/24 10:44 Surgeon: Shine Valdez MD Pre Op Diagnosis: Hemorrhoids/ Melena Patient Data Age: 49 Gender: F Height: 1.68 m Weight: 108.8 kg Last Vital Signs Temp 36.2 C L 09/22/24 10:30 Pulse 71 09/22/24 10:30 Resp 20 09/22/24 10:30 BP 178/92 H 09/22/24 10:30 Pulse Ox 98 09/22/24 10:30 O2 Del Method Room Air 09/22/24 10:30 Allergies Allergy/AdvReac Type Severity Reaction Status Date / Time amoxicillin (From Augmentin) AdvReac Mild Stomach Verified 09/22/24 10:26 cramps, Diarrhea clavulanic acid (From AdvReac Mild Stomach Verified 09/22/24 10:26 Augmentin) cramps, Diarrhea Beta-Blockers AdvReac Hypotension Verified 09/22/24 10:26 (Beta-Adrenergic Bloc Home Medications ?Medication ?Instructions ?Recorded ?Confirmed ?Type biotin 1 mg capsule 1 mg PO DAILY 08/25/19 09/22/24 History cholecalciferol (vitamin D3) 50 6,000 unit PO DAILY 08/25/19 09/22/24 History mcg (2,000 unit) tablet hydroxychloroquine 200 mg tablet 200 mg PO BID 08/25/19 09/22/24 History (Plaquenil) omega-3 fatty acids 1,000 mg 2,000 mg PO DAILY 12/08/20 09/22/24 History capsule (Fish Oil Concentrate) fluticasone propionate 50 1 spray intranasal DAILY #16 grams 08/14/21 09/22/24 Rx mcg/actuation nasal spray,suspension leflunomide 10 mg tablet 10 mg PO DAILY 09/18/22 09/22/24 History pazdlaug-uvf-nwsd-FA-Ca carb-vit K 1 tablet PO DAILY 09/04/23 09/22/24 History 18 mg iron-400 mcg-500 mg tablet hydrochlorothiazide 25 mg tablet 25 mg PO DAILY #90 tabs 05/25/24 09/22/24 Rx estradiol 0.5 mg tablet 1 mg PO DAILY 06/08/24 09/22/24 History ixekizumab 80 mg/mL subcutaneous 80 mg subcut MONTHLY 06/08/24 09/22/24 History auto-injector (Taltz Autoinjector) lisinopril 40 mg tablet 40 mg PO DAILY #90 tabs 08/26/24 09/22/24 Rx Patient hx anesthesia problems: none Family hx anesthesia problems: none Results Review: All pre-operative results and documents have been reviewed as part of the pre- operative evaluation. [facility] Past Medical History Medical History Depression Anxiety Chronic pain syndrome Vitamin D deficiency Sjogrens syndrome Psoriatic arthritis Kidney stones Scoliosis Insomnia Hyperparathyroidism Hypertension Surgical History Surgical History H/O hemorrhoidectomy 09/20/2022 History of removal of cyst Scalp. History of bilateral breast reduction surgery History of spinal fusion History of partial hysterectomy Family History Family History Father Hypertension Family history of diabetes mellitus in first degree relative Mother Hypertension Sibling Family history of alcoholism Other Family history of cardiovascular disease Social History Social History Social History: Surrogate medical decision maker: Jensen Simpson, spouse. Code status: Full code. Smoking status: Never smoker Alcohol intake: current Drinks per week: 4 Alcohol use details: 4-5 drinks most nights, none since 2021 Substance use: current Substance use type: marijuana Other substance usage details: medical marijuana Last use: 09/17/22 Do You Feel Safe in your Home?: Yes Lack of Transportation: No Lack of Food: Never True Current Housing: I Have Housing Concerned About Future Housing: No Difficulty Paying Gas/Electric Bills: No Difficulty Paying for Meds: No Currently Unemployed: No Education: Bachelor's Degree Difficulty w/ Childcare or Family Care: No Additional living arrangements comments: Lives in [place] with spouse. They have grown children. Spiritual care concerns: No Anes - Eval Final PreProcedure Day of Procedure 12/10/24 10:44 Patient weight: obese Heart: regular rate and rhythm Lungs: clear to auscultation Airway: Mallampati scale class II Neurological: alert and oriented Last oral intake: >/= 8 hours ASA classification: III Emergent: no Anesthetic plan: proceed Anesthesia type and monitoring: general GIVS and standard monitoring Results Review: All pre-operative results and documents have been reviewed as part of the pre- operative evaluation. Informed Consent: The patient's anesthetic plan and its attendant risks and benefits were discussed with the patient/family/POA. Questions were solicited and answers provided to the satisfaction of the patient/family/POA.
--- NOTE | 2024-09-22 11:08 | PM.HPGS ---
History of Present Illness History of Present Illness Consent: Risks, benefits, and alternatives have been discussed and questions answered. Patient agrees to proceed with procedure. Chief complaint: Hemorrhoids Narrative: Tequila Simpson is a 49 year old female here for sigmoidoscopy and possible IRC, h/o hemorrhoids s/p surgery- recently again with blood in stools, last colonoscopy 2021. Review of Systems Review of Systems: All systems reviewed & are unremarkable except as noted in HPI and below PMFSH Past Medical History Medical History Depression Anxiety Chronic pain syndrome Vitamin D deficiency Sjogrens syndrome Psoriatic arthritis Kidney stones Scoliosis Insomnia Hyperparathyroidism Hypertension Surgical History Surgical History H/O hemorrhoidectomy 09/20/2022 History of removal of cyst Scalp. History of bilateral breast reduction surgery History of spinal fusion History of partial hysterectomy Family History Family History Father Hypertension Family history of diabetes mellitus in first degree relative Mother Hypertension Sibling Family history of alcoholism Other Family history of cardiovascular disease Social History Social History Social History: Surrogate medical decision maker: Jensen Simpson, spouse. Code status: Full code. Smoking status: Never smoker Alcohol intake: current Drinks per week: 4 Alcohol use details: 4-5 drinks most nights, none since 2021 Substance use: current Substance use type: marijuana Other substance usage details: medical marijuana Last use: 09/17/22 Do You Feel Safe in your Home?: Yes Lack of Transportation: No Lack of Food: Never True Current Housing: I Have Housing Concerned About Future Housing: No Difficulty Paying Gas/Electric Bills: No Difficulty Paying for Meds: No Currently Unemployed: No Education: Bachelor's Degree Difficulty w/ Childcare or Family Care: No Additional living arrangements comments: Lives in [place] with spouse. They have grown children. Spiritual care concerns: No Meds Home Medications and Allergies Home Medications ?Medication ?Instructions ?Recorded ?Confirmed ?Type biotin 1 mg capsule 1 mg PO DAILY 08/25/19 09/22/24 History cholecalciferol (vitamin D3) 50 6,000 unit PO DAILY 08/25/19 09/22/24 History mcg (2,000 unit) tablet hydroxychloroquine 200 mg tablet 200 mg PO BID 08/25/19 09/22/24 History (Plaquenil) omega-3 fatty acids 1,000 mg 2,000 mg PO DAILY 12/08/20 09/22/24 History capsule (Fish Oil Concentrate) fluticasone propionate 50 1 spray intranasal DAILY #16 grams 08/14/21 09/22/24 Rx mcg/actuation nasal spray,suspension leflunomide 10 mg tablet 10 mg PO DAILY 09/18/22 09/22/24 History rzhdmkhu-ocv-bxvi-FA-Ca carb-vit K 1 tablet PO DAILY 09/04/23 09/22/24 History 18 mg iron-400 mcg-500 mg tablet hydrochlorothiazide 25 mg tablet 25 mg PO DAILY #90 tabs 05/25/24 09/22/24 Rx estradiol 0.5 mg tablet 1 mg PO DAILY 06/08/24 09/22/24 History ixekizumab 80 mg/mL subcutaneous 80 mg subcut MONTHLY 06/08/24 09/22/24 History auto-injector (Taltz Autoinjector) lisinopril 40 mg tablet 40 mg PO DAILY #90 tabs 08/26/24 09/22/24 Rx Allergies Allergy/AdvReac Type Severity Reaction Status Date / Time amoxicillin (From Augmentin) AdvReac Mild Stomach Verified 09/22/24 10:26 cramps, Diarrhea clavulanic acid (From AdvReac Mild Stomach Verified 09/22/24 10:26 Augmentin) cramps, Diarrhea Beta-Blockers AdvReac Hypotension Verified 09/22/24 10:26 (Beta-Adrenergic Bloc Vital Signs Vital Signs - 24 hr 09/22/24 10:30 Temperature 97.1 F L Pulse Rate 71 Respiratory Rate 20 Blood Pressure 178/92 H Pulse Oximetry 98 Oxygen Delivery Room Air Exam Const: General: comfortable and no acute distress HENMT: Face/Nose/Sinus: Normal nares present Eyes: General: appearance normal, both eyes and all related structures Neck: Neck: no JVD Resp: Auscultation: clear to auscultation bilaterally Cardio: Rate: regular rate Rhythm: regular rhythm GI: Inspection: non-distended GI Palp: Yes Soft to palpation Skin: General skin exam: normal color Neuro: General: gait normal Speech: normal speech Extrem: General: normal to inspection Psych: Mental Status: mental status grossly normal Assessment and Plan Assessment and plan (1) Hematochezia: Code(s): K92.1 - Melena Status: Acute Assessment and Plan: sigmoidoscopy (2) Internal hemorrhoids with complication: Code(s): K64.8 - Other hemorrhoids Status: Chronic Assessment and Plan: will assess if needs IRC
[2024-09-22 11:18] VITALS: BP 144/51; PULSE 67; RESP 20; O2SAT 96
--- NOTE | 2024-09-22 11:19 | W.PM.PROC2 ---
Procedure Note - Detailed Date of Procedure 09/22/24 Pre-op Diagnosis Hemorrhoids Post-op Diagnosis Same Procedure Performed irc of internal hemorrhoids Surgeon Shine Valdez MD Anesthesia MAC (also had sigmoidoscopy) Findings noted grade II internal hemorrhoids using anoscope, no bleeding, no fissure, no lesions. Then advanced IRC probe and hemorrhoid treated x6 for 1.5 seconds each time. Description of Procedure irc of internal hemorrhoids
[2024-09-22 11:28] VITALS: BP 158/72; PULSE 67; RESP 20; O2SAT 98
[2024-09-22 11:38] VITALS: BP 148/83; PULSE 64; RESP 20; O2SAT 99
== END 2024-09-22 11:48 | disposition home or self-care (01) ==
PROVIDERS: PCP Internal Medicine; Referring Provider Nurse Practitioner; Visit Provider Internal Medicine Gastroenterology
PROC: 0DJD8ZZ Inspection of Lower Intestinal Tract, Via Natural or Artificial Opening Endoscopic (ICD-10-PCS; CPT 45330; principal; 2024-09-22 14:30)
PROC: (CPT 46930; 2024-09-22 14:30)
DX: K64.1 Second degree hemorrhoids (principal); K57.30 Diverticulosis of large intestine without perforation or abscess without bleeding; I10 Essential (primary) hypertension; E21.3 Hyperparathyroidism, unspecified; G47.00 Insomnia, unspecified; G89.4 Chronic pain syndrome; F32.A Depression, unspecified; F41.9 Anxiety disorder, unspecified; E55.9 Vitamin D deficiency, unspecified; M35.00 Sjogren syndrome, unspecified; L40.50 Arthropathic psoriasis, unspecified; M41.9 Scoliosis, unspecified; F12.90 Cannabis use, unspecified, uncomplicated; E66.9 Obesity, unspecified; Z68.38 Body mass index [BMI] 38.0-38.9, adult; Z79.620 Long term (current) use of immunosuppressive biologic; Z98.890 Other specified postprocedural states; Z98.1 Arthrodesis status; Z87.442 Personal history of urinary calculi; Z82.49 Family history of ischemic heart disease and other diseases of the circulatory system
CPT/HCPCS: 45330; 46930; J2704; J7120

== ENCOUNTER 2025-05-14 14:41 | Emergency (ER) | payer OTHER, SELFPAY ==
--- NOTE | ~2025-05-14 | XR_ITS ---
EXAM: XR ankle RT min 3V, XR foot RT min 3V DATE: 05/14/2025 15:20 (accession [id number]), 05/14/2025 15:21 (accession [id number]) HISTORY: R ankle pain . COMPARISON: 05/14/2025. FINDINGS: Normal mineralization. No fracture or dislocation. No lytic or blastic lesion. Joint space s are maintained. Achilles and plantar enthesopathy No erosion or periosteal change. Soft tissues wit hin normal limits. IMPRESSION: No acute osseous finding in the right ankle or right foot. Reviewed, dictated and finalized at location K. IMPRESSION: No acute osseous finding in the right ankle or right foot.
[2025-05-14 14:50] VITALS: BP 150/79; PULSE 86; RESP 16; TEMP 36.4; O2SAT 96
--- NOTE | 2025-05-14 15:01 | ED.LOWEXIN ---
HPI - Extremity Injury (Lower) General Chief Complaint: Extremity Injury, Lower <Tracey Streeter APRN - Last Filed: 05/14/25 15:04> Stated Complaint: R foot injury <Tracey Streeter APRN - Last Filed: 05/14/25 15:04> Time Seen by Provider: 05/14/25 14:50 <Tracey Streeter APRN - Last Filed: 05/14/25 15:04> Focused HPI: Patient is a 50-year-old female who presents to the ER with right foot/ankle pain, with most centralized pain in her right toe joint. She denies any injury to the area. Patient reports she started noticing some pain on May 12, 2025, 2 days ago. She denies any warmth to the area, calf pain, or recent fevers. Patient door sys a history of high blood pressure, and multiple autoimmune disorders. She reports she has no history of gout. GENERAL: Well-appearing, well-nourished, and in no acute distress. HEAD: Normocephalic, atraumatic. CHEST: Clear to auscultation. ?No respiratory distress. HEART: Regular rate and rhythm.? NEURO: ?Alert and oriented x3. Patient screened in triage and initial orders placed.? ?Additional care and disposition to be based upon?diagnostic testing and treatment. <Tracey Streeter APRN - Last Filed: 05/14/25 15:04> History of Present Illness HPI Narrative: Migrated the above HPI <Kameron Wan MD - Last Filed: 05/14/25 18:50> Related Data Home Medications: Home Medications ?Medication ?Instructions ?Recorded ?Confirmed ?Last Taken ?Type biotin 1 mg capsule 1 mg PO DAILY 08/25/19 01/12/25 09/22/24 History cholecalciferol (vitamin D3) 50 6,000 unit PO DAILY 08/25/19 01/12/25 09/22/24 History mcg (2,000 unit) tablet hydroxychloroquine 200 mg tablet 200 mg PO BID 08/25/19 01/12/25 09/22/24 History (Plaquenil) omega-3 fatty acids 1,000 mg 2,000 mg PO DAILY 12/08/20 01/12/25 09/20/24 History capsule (Fish Oil Concentrate) leflunomide 10 mg tablet 10 mg PO DAILY 09/18/22 01/12/25 09/22/24 History jpfcrqku-dja-elzu-FA-Ca carb-vit K 1 tablet PO DAILY 09/04/23 01/12/25 09/22/24 History 18 mg iron-400 mcg-500 mg tablet estradiol 0.5 mg tablet 1 mg PO DAILY 06/08/24 01/12/25 09/22/24 History ixekizumab 80 mg/mL subcutaneous 80 mg subcut MONTHLY 06/08/24 01/12/25 09/13/24 History auto-injector (Taltz Autoinjector) <Tracey Streeter APRN - Last Filed: 05/14/25 15:04> Allergies/Adverse Reactions: Allergies Allergy/AdvReac Type Severity Reaction Status Date / Time amoxicillin (From Augmentin) AdvReac Mild Stomach Verified 05/14/25 14:53 cramps, Diarrhea clavulanic acid (From AdvReac Mild Stomach Verified 05/14/25 14:53 Augmentin) cramps, Diarrhea Beta-Blockers AdvReac Hypotension Verified 05/14/25 14:53 (Beta-Adrenergic Bloc <Tracey Streeter APRN - Last Filed: 05/14/25 15:04> Review of Systems Review of Systems: All systems reviewed & are unremarkable except as noted in HPI and below <Kameron Wan MD - Last Filed: 05/14/25 18:50> [facility] Past Medical History Medical History: Medical History Depression Anxiety Chronic pain syndrome Vitamin D deficiency Sjogrens syndrome Psoriatic arthritis Kidney stones Scoliosis Insomnia Hyperparathyroidism Hypertension <Tracey Streeter APRN - Last Filed: 05/14/25 15:04> Surgical History Surgical History: Surgical History H/O hemorrhoidectomy 09/20/2022 History of removal of cyst Scalp. History of bilateral breast reduction surgery History of spinal fusion History of partial hysterectomy <Tracey Streeter APRN - Last Filed: 05/14/25 15:04> Family History Family History: Family History (Reviewed 01/12/25 @ 09:25 by Sandra Begum [facility]) Father Hypertension Family history of diabetes mellitus in first degree relative Mother Hypertension Sibling Family history of alcoholism Other Family history of cardiovascular disease <Tracey Streeter APRN - Last Filed: 05/14/25 15:04> Social History Social History: Social History (Reviewed 01/12/25 @ 09:25 by Sandra Begum [facility]) Social History: Surrogate medical decision maker: Jensen Simpson, spouse. Code status: Full code. Smoking status: Never smoker Alcohol intake: current Drinks per week: 4 Alcohol use details: 4-5 drinks most nights, none since 2021 Substance use: current Substance use type: marijuana Other substance usage details: medical marijuana Last use: 09/17/22 Do You Feel Safe in your Home?: Yes Lack of Transportation: No Lack of Food: Never True Current Housing: I Have Housing Concerned About Future Housing: No Difficulty Paying Gas/Electric Bills: No Difficulty Paying for Meds: No Currently Unemployed: No Education: Bachelor's Degree Difficulty w/ Childcare or Family Care: No Additional living arrangements comments: Lives in [place] with spouse. They have grown children. Spiritual care concerns: No <Tracey Streeter APRN - Last Filed: 05/14/25 15:04> Exam Narrative: APPEARANCE: Well appearing, no pain, no distress, well-nourished. HEAD: normocephalic, atraumatic. EYES: PERRLA/EOMI, conjunctivae clear. NOSE: Normal no drainage EARS:TMS clear with good light reflex. THROAT: Pharynx clear, no exudate. NECK: Supple. No adenopathy, no masses. RESPIRATORY: Airway patent, respirations nonlabored. Clear to auscultation bilaterally, no rales, rhonchi, wheezing. CARDIOVASCULAR: Regular rate and rhythm without murmurs rubs or gallops. ABDOMINAL: Soft, nontender, nondistended, normal bowel sounds MUSCULOSKELETAL: Tenderness to base of great toe on right foot no evidence of overlying cellulitis <Kameron Wan MD - Last Filed: 05/14/25 18:50> Course Vital Signs Vital signs: Vital Signs Temperature 97.6 F 05/14/25 14:50 Pulse Rate 86 05/14/25 14:50 Respiratory Rate 16 05/14/25 14:50 Blood Pressure 150/79 H 05/14/25 14:50 Pulse Oximetry 96 05/14/25 14:50 Oxygen Delivery Room Air 05/14/25 14:50 Temperature 97.6 F 05/14/25 15:32 Pulse Rate 86 05/14/25 15:32 Respiratory Rate 15 05/14/25 15:32 Blood Pressure 150/79 H 05/14/25 15:32 Pulse Oximetry 97 05/14/25 15:32 Oxygen Delivery Room Air 05/14/25 15:32 <Tracey Streeter, SHOES SALESPERSON - Last Filed: 05/14/25 15:04> Vital Signs Temperature 97.6 F 05/14/25 14:50 Pulse Rate 86 05/14/25 14:50 Respiratory Rate 16 05/14/25 14:50 Blood Pressure 150/79 H 05/14/25 14:50 Pulse Oximetry 96 05/14/25 14:50 Oxygen Delivery Room Air 05/14/25 14:50 Temperature 97.6 F 05/14/25 15:32 Pulse Rate 86 05/14/25 15:32 Respiratory Rate 15 05/14/25 15:32 Blood Pressure 150/79 H 05/14/25 15:32 Pulse Oximetry 97 05/14/25 15:32 Oxygen Delivery Room Air 05/14/25 15:32 <Kameron Wan MD - Last Filed: 05/14/25 18:50> MDM - Extremity Injury (Lower) MDM Narrative Medical decision making narrative: 50-year-old female presents emergency department for evaluation for right great toe pain. Patient has no prior history of gout, low concern for septic arthritis. X-rays were negative for acute fracture dislocation of foot and ankle. Patient was advised to take anti-inflammatories and have close follow-up with her primary care physician. Patient declined the use of crutches for limited weight-bearing. <Kameron Wan MD - Last Filed: 05/14/25 18:50> Differential Diagnosis Differential diagnosis: Likely ankle sprain and strain and other (Gout, cellulitis, fracture) <Kameron Wan MD - Last Filed: 05/14/25 18:50> Imaging Data Radiologist's impression: Impressions Ankle X-Ray 05/14/25 15:31 IMPRESSION: No acute osseous finding in the right ankle or right foot. Foot X-Ray 05/14/25 15:31 IMPRESSION: No acute osseous finding in the right ankle or right foot. <Kameron Wan MD - Last Filed: 05/14/25 18:50> Discharge Plan Discharge Clinical Impression: Pain in toe <Tracey Streeter APRN - Last Filed: 05/14/25 15:04> Patient Disposition: Home <Tracey Streeter APRN - Last Filed: 05/14/25 15:04> Condition: Stable <Tracey Streeter APRN - Last Filed: 05/14/25 15:04> Instructions: Antibiotic Form <Tracey Streeter APRN - Last Filed: 05/14/25 15:04> Additional Instructions: Naproxen as directed for 5 days pain. Have close follow-up with your primary care physician. If you have any worsening symptoms then please call or return to the emergency department. <Tracey Streeter APRN - Last Filed: 05/14/25 15:04> Patient Language: Venezuelan <Tracey Streeter APRN - Last Filed: 05/14/25 15:04> Prescriptions: New naproxen 500 mg tablet 500 mg PO BID PRN (Reason: pain) Qty: 10 0RF No Action hydroxychloroquine [Plaquenil] 200 mg tablet 200 mg PO BID cholecalciferol (vitamin D3) 2,000 unit tablet 6,000 unit PO DAILY biotin 1 mg capsule 1 mg PO DAILY omega-3 fatty acids [Fish Oil Concentrate] 1,000 mg capsule 2,000 mg PO DAILY fluticasone propionate 50 mcg/actuation spray,suspension 1 spray intranasal DAILY Qty: 16 2RF Rx Instructions: administer into each nostril tj-ps-sofb-FA-Ca carb-vit K 18 mg iron-400 mcg-500 mg tablet 1 tablet PO DAILY methylprednisolone [Medrol (Rodney)] 4 mg tablets,dose pack See Rx Instructions PO PER PKG DIR Qty: 21 0RF Rx Instructions: PO PER PKG DIR Taltz Autoinjector 80 mg/mL auto-injector 80 mg subcut MONTHLY estradiol 0.5 mg tablet 1 mg PO DAILY leflunomide 10 mg tablet 10 mg PO DAILY lisinopril 40 mg tablet 40 mg PO DAILY Qty: 90 1RF amlodipine 10 mg tablet 10 mg PO DAILY Qty: 90 1RF <Tracey Streeter APRN - Last Filed: 05/14/25 15:04> Follow-up/Referrals: Tarik Rock, [Primary Care Provider] - <Tracey Streeter APRN - Last Filed: 05/14/25 15:04>
--- OUTSIDE RECORDS SUMMARY | 2025-05-14 15:06 | XMS_ITS | Encounter Summary ---
Author Organization [facility] Address [address] [place] [address] Phone Care Team Providers Care Detailer [employer]aceuticals Name Role Phone Tarik Rock DO Primary Care Provider [phone]- [phone] Marion Gonzalez MD Primary Care Provider Un available Tarik Rock DO Primary Care Provider +1- [phone] Marion Gonzalez MD Primary Care Provider Un available Tarik Rock DO Primary Care Provider +1- [phone] Tarik Rock DO Primary Care Provider +1- [phone] Encounter Details Date Type Department Care Team (Latest Contact Info) Description 07/12/2004 Orders Only [facility] Scanning, Provider Social History Tobacco Use Types Packs/Day Years Used Date Smoking Tobacco: Never Assessed Comments Unknown Sex and Gender Information Value Date Recorded Sex Assigned at Not on file Legal Sex Female 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 Gender Identity Female 04/25/2018 1:19 PM CDT Sexual Orientation Not on file documented as of this encounter Plan of Treatment Not on file documented as of this encounter Procedures Procedure Name Priority Date/Time Associated Diagnosis Comments SCAN - RADIOLOGY/IMAGING 07/12/2004 documented in this encounter Results * SCAN - RADIOLOGY/IMAGING (07/12/2004) Anatomical Region Laterality Modality Other us Provider Scanning Final Result documented in this encounter Visit Diagnoses Not on filedocumented in this encounter Care Teams Detailer Pharmaceuticals Relationship Specialty Start Date End Date Tarik Rock DO PCP - General 01/06/14 08/22/17 Marion Gonzalez MD PCP - General 08/23/17 08/29/17 Tarik Rock DO PCP - General 08/30/17 01/13/18 Marion Gonzalez MD PCP - General 01/14/18 02/02/18 Tarik Rock DO PCP - General 02/03/18 02/20/18 Tarik Rock DO PCP - General 02/21/18 documented as of this encounter
--- OUTSIDE RECORDS SUMMARY | 2025-05-14 15:06 | XMS_ITS | Encounter Summary ---
Author Organization [facility] Address [address] [place] [address] Care Team Providers Care Director Search Name Role Phone Unavailable Primary Care Provider Unavailabl e Encounter Details Date Type Department Care Team (Late st Contact Info) Description 04/21/2021 Lab Requisition [facility] DermPath Lab [address] [place] [address] Alberto Pagan MD [address] [place] [address] Social History Tobacco Use Types Packs/Day Years Used Date Smoking Tobacco: Never Assessed Comments No Sex and Gender Information Value Date Recorded Sex Assigned at Not on file Legal Sex Female 6:01 AM HEALTH AID Gender Identity Not on file Sexual Orientation Not on file documented as of this encounter Plan of Treatment Not on file documented as of this encounter Procedures Procedure Name Priority Date/Time Associated Diagnosis Comments DERMATOPATHOLOGY Routine 04/20/2021 3:33 AM CDT documented in this encounter Results * DERMATOPATHOLOGY (04/20/2021 3:33 AM CDT) Case Report Dermatopathology Report Case: [id number] Authorizing Provider: Alberto Pagan MD Collected: 04/20/2021 03:33 AM Ordering Location: [facility] DermPath Lab Received: 04/21/2021 06:25 AM Pathologist: Terra Holden MD Specimen: Skin, left scalp 1:48 PM CDT DERMATOPATHOLOGY LABORATORY Final Diagnosis Specimen A. SKIN, left scalp: EPIDERMOID CYST WITH EVIDENCE OF RUPTURE (L72.0) NOT PRESENT AT SAMPLED MARGIN 07/12/202 1 1:48 PM CDT DERMATOPATHOLOGY LABORATORY at 1348 CDT Clinical History E cyst. Path # [id number]. Check margins. 1:48 PM CDT DERMATOPATHOLOGY LABORATORY Gross Description Specimen A: Received is one formalin filled container labeled with the patient's name and designated left scalp. The specimen consists of a [id number] excision, bisected. The margin is inked green. Jar 0. 1:48 PM CDT DERMATOPATHOLOGY LABORATORY Microscopic Description Specimen A. SKIN, left scalp: Within the dermis, there is a space lined by epithelium that resembles normal epidermis and the infundibular portion of the hair follicle. Surrounding this is an infiltrate with neutrophils, histiocytes, and multinucleated giant cells. This lesion is not present at the sampled margin of the specimen. 1:48 PM CDT DERMATOPATHOLOGY LABORATORY Disclaimer An external and internal positive and negative controls are appropriate for the histochemical, immunohistochemical and immunofluorescence stain(s) in this case (if any), except where stated explicitly. The performance characteristics of the stain(s) cited in this report were developed and its performance characteristic determined by the Dermatopathology Laboratory at [facility], directed by Dr. Venancio Parker. These tests need not be, and therefore are not, approved by the [place] Food and Drug Administration. The tests are used for clinical purposes. Billing Codes Specimen Charges Stain Charges 69499 1 1:48 PM CDT DERMATOPATHOLOGY LABORATORY Embedded Images 1:48 PM CDT DERMATOPATHOLOGY LABORATORY Pathology/Cytolo gy TISSUE SPECIMEN FROM SKIN / Unknown 04/20/2021 3:33 AM CDT 04/21/2021 6:25 AM CDT us Alberto Pagan MD LAB - PATHOLOGY/CYTOLOGY ORDER CLAUDE Final Result DERMATOPATHOLOGY LABORATORY [facility] - Department of Dermatology [address] [phone] documented in this encounter Visit Diagnoses Not on filedocumented in this encounter
--- OUTSIDE RECORDS SUMMARY | 2025-05-14 15:06 | XMS_ITS | Clinical Summary ---
Author Organization [facility] Address [address] [place] [address] Phone Care Team Providers Care Load Planner Name Role Phone Pranav Tarik Anthony Primary Care Provider Allergies Active Allergy Reactions Criticality Noted Date Comments Amoxicillin-Pot Clavulanate Vomiting 12/25/19 21 Medications hydroxychloroqu ine (Plaquenil) 200 MG Tablet Take 400 mg by mouth 2 times daily. Active lisinopril (PRINIVIL, ZESTRIL) 20 MG Tablet Take 20 mg by mouth daily. Active estradiol (ESTRACE) 2 MG Tablet Take 2 mg by mouth daily. Hazardous: Medication requires special safe handling and disposal. Active amLODIPine (NORVASC) 10 MG Tablet Take 10 mg by mouth daily. Active Adalimumab (HUMIRA PEN SC) by Subcutaneous route. Active Adalimumab (HUMIRA SC) by Subcutaneous route. Active methotrexate 2.5 MG Tablet Take 15 mg by mouth every 7 days Active gabapentin (NEURONTIN) 100 MG Capsule Take 200 mg by mouth 3 times daily. Active Social History Tobacco Use Types Packs/Day Years Used Date Smoking Tobacco: Never Alcohol Use Standard Drinks/Week Comments Yes 20 (1 standard drink = 0.6 oz pu re alcohol) Comments No Sex and Gender Information Value Date Recorded Sex Assigned at Not on file Legal Sex Female 10:55 PM SUPERINTENDENT STATIONS Gender Identity Not on file Sexual Orientation Not on file Last Filed Vital Signs Vital Sign Reading Time Taken Comments Blood Pressure 135/56 12/25/2020 12:00 AM SUPERINTENDENT STATIONS Pulse 76 12/25/2020 12:15 AM SUPERINTENDENT STATIONS Temperature 36.1 C (97 F) 12/24/2020 10:59 PM SUPERINTENDENT STATIONS Respiratory Rate 21 12/24/2020 10:59 PM SUPERINTENDENT STATIONS Oxygen Saturation 97% 12/25/2020 12:15 AM SUPERINTENDENT STATIONS Inhaled Oxygen Concentration - - Weight 122.5 kg (270 lb) 12/24/2020 10:59 PM SUPERINTENDENT STATIONS Height 167.6 cm (5' 6) 12/24/2020 10:59 PM SUPERINTENDENT STATIONS Body Mass Index 43.58 12/24/2020 10:59 PM SUPERINTENDENT STATIONS Plan of Treatment Health Maintenance Due Date Last Done Comments Hepatitis C Virus (HCV) Screening 1973 TdaP Immunization 1973 Hepatitis B Immunization (1 of 3 - 19+ 3-dose series) 1992 Zoster Immunization (1 of 2) 1992 Cologuard 2018 Colonoscopy 2018 Colorectal Cancer Screening 2018 Immunochemical Fecal Occult Blood 2018 SARS-COV-2 Immunization (3 - Pfizer risk series) 12/26/2020 11/28/2020, 11/11/2020 Pneumococcal Immunization (5 0+ years) (1 of 1 - PCV) 2023 Influenza Immunization (#1) 2025 Respiratory Syncytial Virus (RSV) Immunization (Adult) (1 - 1-dose 75+ series) 2048 Human Papillomavirus (HPV) Immunization Aged Out No longer eligible b ased on patient's age to complete this topic Meningococcal Immunization (ACWY) Aged Out No longer eligible b ased on patient's age to complete this topic Rotavirus Immunization Aged Out No lo nger eligible based on patient's age to complete this topic Care Teams Load Planner Relationship Specialty Start Date End Date Tarik Rock DO [facility] [facility] [place] [address] PCP - General Internal Medicine 12/24/20
--- OUTSIDE RECORDS SUMMARY | 2025-05-14 15:07 | XMS_ITS | Encounter Summary ---
Author Organization [facility] Address [address] [place] [address] Phone Care Team Providers Care Police Dispatcher Name Role Phone Tarik Rock DO Primary Care Provider [phone]- [phone] Marion Gonzalez MD Primary Care Provider Un available Tarik Rock DO Primary Care Provider +- [phone] Marion Gonzalez MD Primary Care Provider Un available Tarik Rock DO Primary Care Provider +1- [phone] Tarik Rock DO Primary Care Provider +1- [phone] Encounter Details Date Type Department Care Team (Late st Contact Info) Description 02/01/2017 Orders Only [facility] Scanning, Provider Social History Tobacco Use Types Packs/Day Years Used Date Smoking Tobacco: Never Assessed Comments Unknown Sex and Gender Information Value Date Recorded Sex Assigned at Not on file Legal Sex Female 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 Gender Identity Female 04/25/2018 1:19 PM CDT Sexual Orientation Not on file documented as of this encounter Plan of Treatment Not on file documented as of this encounter Procedures Procedure Name Priority Date/Time Associated Diagnosis Comments SCAN - RADIOLOGY/IMAGING 02/01/2017 documented in this encounter Results * SCAN - RADIOLOGY/IMAGING (02/01/2017) Anatomical Region Laterality Modality Other us Provider Scanning Final Result documented in this encounter Visit Diagnoses Not on filedocumented in this encounter Care Teams Police Dispatcher Relationship Specialty Start Date End Date Tarik [...]
--- OUTSIDE RECORDS SUMMARY | 2025-05-14 15:07 | XMS_ITS | Encounter Summary ---
Author Organization [facility] Address [address] [place] [address] Phone Care Team Providers Care Hunting And Fishing Guide Name Role Phone Tarik Rock DO Primary Care Provider +1- [phone] Encounter Details Date Type Department Care Team (Late st Contact Info) Description 09/04/2023 Orders Only [facility] Scanning, Provider Social History Tobacco Use Types Packs/Day Years Used Date Smoking Tobacco: Never Smokeless Tobacco: Never Alcohol Use Standard Drinks/Week Comments Yes 0 (1 standard drink = 0.6 oz pur e alcohol) 2 drinks 2-3 nights per week Comments Unknown Sex and Gender Information Value Date Recorded Sex Assigned at Not on file Legal Sex Female 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 Gender Identity Female 04/25/2018 1:19 PM CDT Sexual Orientation Not on file 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
--- OUTSIDE RECORDS SUMMARY | 2025-05-14 15:07 | XMS_ITS | Clinical Summary ---
Author Organization [facility] Address [address] [place] [address] Care Team Providers Care Skidway Worker Name Role Phone Tarik Rock DO Primary Care Provider +1- [phone] Allergies Active Allergy Reactions Criticality Noted Date Comments Amoxicillin-Pot Clavulanate Unknown 12/21/2009 GI upsets Beta-Blockers (Beta-Adrenergic Blocking Agts) Hypotension,Shortness of breath,Syncope High 06/25/2023 Levofloxacin Anaphylaxis High 02/02/2010 Potassium Clavulanate Stomach upset Low 04/23/2022 Medications * This document contains information received from the source organization and may not represent a complete record from that organization. fluticasone (FLONASE) 50 mcg/actuation nasal spray as needed 8 Active multivitamin capsule daily. Active cholecalciferol (VITAMIN D-3) 2000 unit capsule 3 capsules (6,000 Units total) daily Active ibuprofen (ADVIL,MOTRIN) 200 mg tab/cap Take 1 tablet/capsule (200 mg total) by mouth daily as needed Active docosahexanoic acid/epa (FISH OIL ORAL) 1,200 mg 2 (two) times a day Active biotin 2,500 mcg capsule Active lisinopriL (PRINIVIL,ZESTR IL) 40 mg tablet 1 Active clobetasoL (TEMOVATE) 0.05 % ointment APPLY TO AFFECTED AREA TWICE A DAY FOR 2 WEEKS, THEN DAILY NEEDED 4 Active estradioL (ESTRACE) 1 mg tablet 4 Active ixekizumab (Taltz Autoinjector) auto-injectorIn dications:Psori atic Arthritis Inject 1 mL (80 mg total) under the skin every 4 (four) weeks 3 mL 1 5 Active cyclobenzaprine (FLEXERIL) 5 mg tablet Take 1 tablet (5 mg total) by mouth 3 (three) times a day as needed for muscle spasms 30 tablet 5 Active Additional Information Patient not taking.Reported on 03/03/2025 minoxidiL (LONITEN) 2.5 mg tablet 5 Active spironolactone (ALDACTONE) 100 mg tablet 5 Active leflunomide (ARAVA) 10 mg tabletIndicatio ns:Psoriatic arthritis (HCC) TAKE 1 TABLET BY MOUTH EVERY DAY 90 tablet 1 5 Active hydroxychloroqu ine (PLAQUENIL) 200 mg tabletIndicatio ns:Psoriatic arthritis (HCC) TAKE 1 TABLET BY MOUTH TWICE A DAY 180 tablet 5 Active Active Problems Problem Noted Date Diagnosed Date Abdominal pain 09/13/2022 Overview (09/13/2022): Added automatically from request for surgery [id number] Diarrhea 09/13/2022 Overview (09/13/2022): Added automatically from request for surgery [id number] Screening for colon cancer 09/13/2022 Overview (09/13/2022): Added automatically from request for surgery [id number] Kidney stone 05/25/2020 Hypercalcemia 05/24/2020 High risk medication use 03/28/2020 Psoriatic arthritis 02/02/2020 Psoriasis 02/01/2014 Hypertension 02/01/2014 Sjogren's syndrome 10/03/2011 Encounters Date Type Department Care Team Description 03/03/2025 1:00 PM CDT Lab [facility] Endocrinology Metabolism and Lipid [address] [place] [address] [place] [address] Psoriatic arthritis (HCC); High risk medication use 03/03/2025 11:00 AM CDT Office Visit [facility] Rheumatology [address] [place] [address] [place] [address] Jose Luis Wilhelm, Choco Crandall MD Psoriatic arthritis (HCC) (Primary Dx); High risk medication use; 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 of 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 steroids from Last 3 Months Surgical History Surgery Date Site/Laterality Comments BREAST SURGERY Breast Surgery Reduction Procedure - (Added by TW Conv) HYSTERECTOMY Hysterectomy - (Added by Conv) SPINAL FUSION Not MRI-compatible HEMORRHOID SURGERY 09/13/2022 - 10/13/2022 Medical History Medical History Date Comments Anxiety disorder Anxiety - (Adde d by Conv) Personal history of other di seases of the musculoskeletal system and connective tissue History of backache - (Added by Conv) Anemia Depression Heart murmur Hypertension Inflammatory bowel disease Kidney stone Obesity Raynaud phenomenon Psoriasis psoriatic arthri tis Arthritis Family History Medical History Relation Name Comments Alcohol abuse Brother Diabetes Brother Hypertension Daughter Diabetes Father Heart disease Father Hypertension Father heart valve disease Maternal Grandmother Hypertension Mother Kyphosis Mother Hypertension Sister Hypertension Son Relation Name Status Comments Brother Daughter Father Maternal Grandmother Mother Sister Son Social History Tobacco Use Types Packs/Day Years Used Date Smoking Tobacco: Never Smokeless Tobacco: Never Tobacco Cessation:Counseling Given: Not Answered Alcohol Use Standard Drinks/Week Comments Yes 0 (1 standard drink = 0.6 oz pur e alcohol) 2 drinks 2-3 nights per week Hunger Vital Sign Answer Date Recorded Within the past 12 months, y ou worried that your food would run out before you got the money to buy more. Never true 03/12/20 24 Within the past 12 months, t he food you bought just didn't last and you didn't have money to get more. Never true 03/12/2024 Personal Safety Answer Date Recorded Have you ever been in or are you currently in a harmful physical or emotional relationship or is someone making you feel afraid or unsafe? 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 file Not on file Not on fi le Obstetrics History Last Filed Vital Signs Vital Sign Reading Time Taken Comments Blood Pressure 151/85 03/03/2025 10:41 AM CDT Pulse 71 03/03/2025 10:41 AM CDT Temperature 36.4 C (97.6 F) 03/03/2025 10:41 AM CDT Respiratory Rate 16 03/12/2024 1:29 PM CDT Oxygen Saturation 98% 03/12/2024 4:15 PM CDT Inhaled Oxygen Concentration - - Weight 111.9 kg (246 lb 9.6 oz) 025 10:41 AM CDT Height 167.6 cm (5' 6) 03/03/2025 10:4 1 AM CDT Body Mass Index 39.8 03/03/2025 10:41 AM CDT Plan of Treatment Health Maintenance Due Date Last Done Comments Breast Cancer Screening-Mammogram 1973 Colon Cancer Screening-Colonoscopy 1973 Depression Screening 1973 DTaP/Tdap/Td Vaccine (1 - Tdap) 1984 Hepatitis B Screening 1991 Regular Well Visit/Exam 18-64 1991 Pneumococcal vaccine <65 (1 of 2 - PCV) 1992 Zoster Vaccine (1 of 2) 1992 Influenza Vaccine (#1) 2025 3, 07/21/2021, 08/05/2015 Hepatitis C Screening Completed 02/21/2018 Procedures Procedure Name Priority Date/Time Associated Diagnosis Comments ERYTHROCYTE SEDIMENTATION RATE Routine 03/03/2025 11:31 AM CDT Psoriatic arthritis (HCC) COMPREHENSIVE METABOLIC PANEL Routine 03/03/2025 11:31 AM CDT Psoriatic arthritis (HCC) High risk medication use CBC WITH AUTO DIFFERENTIAL Routine 03/03/2025 11:31 AM CDT Psoriatic arthritis (HCC) High risk medication use CRP (ACUTE PHASE) Routine 03/03/2025 11: 31 AM CDT Psoriatic arthritis (HCC) HEPATITIS C ANTIBODY Routine Gen Lab 02/21/2018 11:07 AM CDT from Last 3 Months or Most Recently Relevant to Health Maintenance Results * CBC with auto differential (03/03/2025 11:31 AM CDT) White Blood Count 8.2 3.6 - 11.2 K/uL [facility] RBC 4.13 3.63 - 4.92 M/uL [facility] Hemoglobin 13.7 11.9 - 15.5 g/dL [facility] Hematocrit 40.2 36.1 - 44.3 % [facility] MCV 97.2 80.0 - 97.6 fL [facility] MCH 33.1 26.7 - 33.7 pg [facility] MCHC 34.0 32.7 - 35.5 g/dL [facility] RBC Dist Width 13.8 12.3 - 17.0 % [facility] Platelet Count 204 140 - 440 K/uL [facility] MPV 10.3 6.8 - 10.4 fL [facility] Neutrophils % 61.4 38.7 - 74.5 % [facility] Lymphocyte % 21.1 20.0 - 54.3 % [facility] Monocytes % 12.1 4.3 - 13.5 % [facility] Eosinophils % 4.3 0.0 - 6.0 % [facility] Basophil % 1.1 0.0 - 3.0 % [facility] Absolute Neutrophil 5.0 1.8 - 6.6 K/uL [facility] Absolute Lymphocyte 1.7 0.8 - 3.3 K/uL [facility] Absolute Monocyte 1.0 0.2 - 1.2 K/uL [facility] Absolute Eosinophil 0.3 0.0 - 0.5 K/uL [facility] Absolute Basophil 0.1 0.0 - 0.2 K/uL [facility] Nucleated RBC % 0.1 0.0 - 0.4 /100 WBC [facility] Blood 03/03/2025 11:3 1 AM CDT 03/03/2025 12:35 PM CDT Choco Wilhelm MD LAB BL OOD ORDERABLES Final Result [facility] * Erythrocyte sedimentation rate (03/03/2025 11:31 AM CDT) Erythrocyte Sedimentation Rate 19 <30 mm/hr [facility] Blood 03/03/2025 11:3 1 AM CDT 03/03/2025 12:35 PM CDT Choco Wilhelm MD LAB BL OOD ORDERABLES Final Result Performing Organization Address City/[facility]/ZIP Co de Phone Number [facility] * (ABNORMAL) CRP (acute phase) (03/03/2025 11:31 AM CDT) C-Reactive Protein, Acute 9.7(H) <5.0 mg/L [facility] Blood 03/03/2025 11:3 1 AM CDT 03/03/2025 12:35 PM CDT Choco Wilhelm MD LAB BL OOD ORDERABLES Final Result Performing Organization Address [facility] Co de Phone Number [facility] * (ABNORMAL) Comprehensive metabolic panel (03/03/2025 11:31 AM CDT) Total Protein 7.1 6.1 - 8.4 g/dL [facility] Albumin 4.2 3.5 - 5.2 g/dL [facility] Calcium 10.7(H) 8.6 - 10.3 mg/dL [facility] Comment:Repeated and Verifie d BUN 15 7 - 23 mg/dL [facility] Total Bilirubin 0.57 0.20 - 1.40 mg/dL [facility] Alk Phos, Total 73 35 - 129 IU/L [facility] AST (SGOT) 28 11 - 47 IU/L [facility] ALT (SGPT) 38 6 - 53 IU/L [facility] Creatinine 0.80 0.60 - 1.10 mg/dL [facility] Sodium 141 135 - 145 mmol/L [facility] Potassium 4.7 3.3 - 5.1 mmol/L [facility] Chloride 103 95 - 107 mmol/L [facility] CO2 Content 26 21 - 29 mmol/L [facility] Glucose 69 64 - 99 mg/dL [facility] Comment: NONFASTING GLUCOSE RANGE = 64-199 mg/dL FASTING GLUCOSE 64 - 99 = NORMAL FASTING GLUCOSE 100 - 125 = IMPAIRED FASTING GLUCOSE FASTING GLUCOSE >=126 = PROVISIONAL DIAGNOSIS OF DIABETES eGFR 89.2 >60.0 mL/min/1.7 3 m2 [facility] Blood 03/03/2025 11:3 1 AM CDT 03/03/2025 12:35 PM CDT Choco Wilhelm MD LAB BL OOD ORDERABLES Final Result [facility] * Hepatitis C antibody (02/21/2018 11:07 AM CDT) Hep C Ab Nonreactive Nonreactive [facility] Comment: Interpretive Data Positive and greyzone results should be confirmed by a molecular method. If positive or greyzone, a second separately collected sample should be submitted for Hepatitis C Virus RNA. Detection and Quantitation by Real-Time Reverse Quality Technician-PCR.Current Interpretive data was last revised on 2017. Blood specimen (specimen) 02/21/2018 11:07 AM CDT 02/21/2018 1:20 PM CDT Narrative [facility] [place] 02/22/2018 10:32 AM CDT Leighann Willett MD LAB MICROBIOLOGY - GENERAL OR DERABLES Edited Result - Final [facility] Department [place] [address] from Last 3 Months or Most Recently Relevant to Health Maintenance Insurance [facility] [employer] [facility] CHOICE PLUS [employer] [employer] Care Teams Skidway Worker Relationship Specialty Start Date End Date Tarik Rock DO PCP - General 02/21/18
--- OUTSIDE RECORDS SUMMARY | 2025-05-14 15:07 | XMS_ITS | Referral Summary ---
Author Organization [facility] Address [address] [place] [address] Care Team Providers Care Chief Operator Reformer Name Role Phone Tarik Rock DO Primary Care Provider +1- [phone] Encounters Date Type Department Care Team Description 03/03/2025 1:00 PM CDT Lab [facility] Endocrinology Metabolism and Lipid [address] [place] [address] [place] [address] Psoriatic arthritis (HCC); High risk medication use 03/03/2025 11:00 AM CDT Office Visit [facility] Rheumatology [address] [place] [address] [place] [address] Choco Jain MD Psoriatic arthritis (HCC) (Primary Dx); High risk medication use; jail (current) use of systemic steroids from Last 3 Months Allergies Active Allergy Reactions Criticality Noted Date [...] (09/13/2022): Added automatically from request for surgery [id number] Diarrhea 09/13/2022 Overview (09/13/2022): Added automatically from request for surgery [id number] Screening for colon cancer 09/13/2022 Overview (09/13/2022): Added automatically from request for surgery [id number] Kidney stone 05/25/2020 Hypercalcemia 05/24/2020 High risk medication use 03/28/2020 Psoriatic arthritis 02/02/2020 Psoriasis 02/01/2014 Hypertension 02/01/2014 Sjogren's syndrome 10/03/2011 Social History Tobacco Use Types Packs/Day Years [...] on file Legal 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 Gender Identity Female 04/25/2018 1:19 PM CDT Sexual Orientation Not on file 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 Not on file Not on fi le Last Filed Vital Signs Vital Sign Reading [...] 03/03/2025 10:41 AM CDT Plan of Treatment Not on file Procedures Procedure Name Priority Date/Time Associated Diagnosis [...] MD LAB BL OOD ORDERABLES Final Result [facility] * Erythrocyte sedimentation rate (03/03/2025 11:31 AM CDT) Erythrocyte Sedimentation Rate 19 <30 mm/hr [facility] Blood 03/03/2025 11:3 1 AM CDT 03/03/2025 12:35 PM CDT Choco Wilhelm MD LAB BL OOD ORDERABLES Final Result Performing Organization Address City/[facility] Co de Phone Number [facility] * (ABNORMAL) CRP (acute phase) (03/03/2025 11:31 AM CDT) C-Reactive Protein, Acute 9.7(H) <5.0 mg/L [facility] Blood 03/03/2025 11:3 1 AM CDT 03/03/2025 12:35 PM CDT Choco Wilhelm MD LAB BL OOD ORDERABLES Final Result [facility] * [...] 1 AM CDT 03/03/2025 12:35 PM CDT us Choco Wilhelm MD LAB BL OOD ORDERABLES Final Result [facility] * Hepatitis C antibody (02/21/2018 11:07 AM CDT) Hep C Ab Nonreactive Nonreactive [facility] Comment: Interpretive Data Positive and greyzone results should be confirmed by a molecular method. If positive or greyzone, a second separately collected sample should be submitted for Hepatitis C Virus RNA. Detection and Quantitation by Real-Time Reverse Engineering Aid-PCR.Current Interpretive data was last revised on 2017. Blood specimen (specimen) 02/21/2018 11:07 AM CDT 02/21/2018 1:20 PM CDT Rosio MENON - 02/22/2018 10:32 AM CDT us Leighann Willett MD LAB MICROBIOLOGY - GENERAL OR DERABLES Edited Result - Final [facility] Department [place] [address] from Last 3 Months or Most Recently Relevant to Health Maintenance Insurance [facility] [employer] HMO/PPO Address: [address] [address] [facility] CHOICE PLUS [employer] [employer] HMO/PPO Address: [address] [address] [place] [address] [facility] [employer] HMO/PPO Address: [address] [address] [place] [address] Care Teams Chief Operator Reformer Relationship Specialty Start Date End Date Tarik Rock DO PCP - General 02/21/18
--- OUTSIDE RECORDS SUMMARY | 2025-05-14 15:07 | XMS_ITS | Encounter Summary ---
Author Organization [facility] Address [address] [place] [address] Phone Care Team Providers Care Clinical Exercise Physiologist Name Role Phone Tarik Rock DO Primary Care Provider +1- [phone] Marion Gonzalez MD Primary Care Provider Un available Tarik Rock DO Primary Care Provider +- [phone] Marion Gonzalez MD Primary Care Provider Un available Tarik Rock DO Primary Care Provider +1- [phone] Tarik Rock DO Primary Care Provider +1- [phone] Encounter Details Date Type Department Care Team (Late st Contact Info) Description 07/19/2017 Orders Only [facility] Scanning, Provider Social History Tobacco Use Types Packs/Day Years Used Date Smoking Tobacco: Never Assessed Comments Unknown Sex and Gender Information Value Date Recorded Sex Assigned at Not on file Legal Sex Female 12:35 AM 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 Gender Identity Female 04/25/2018 1:19 PM CDT Sexual Orientation Not on file documented as of this encounter Plan of Treatment Not on file documented as of this encounter Procedures Procedure Name Priority Date/Time Associated Diagnosis Comments SCAN - RADIOLOGY/IMAGING 07/19/2017 documented in this encounter Results * SCAN - RADIOLOGY/IMAGING (07/19/2017) Anatomical Region Laterality Modality Other us Provider Scanning Final Result documented in this encounter Visit Diagnoses Not on filedocumented in this encounter Care Teams Clinical Exercise Physiologist Relationship Specialty Start Date End Date Tarik [...]
--- OUTSIDE RECORDS SUMMARY | 2025-05-14 15:07 | XMS_ITS | Encounter Summary ---
Author Organization [facility] Address [address] [place] [address] Phone Care Team Providers Care Linking Machine Operator Name Role Phone Tarik Rock DO Primary Care Provider +1- [phone] Marion oGnzalez MD Primary Care Provider Un available Tarik Rock DO Primary Care Provider +- [phone] Marion Gonzalez MD Primary Care Provider Un available Tarik Rock DO Primary Care Provider +1- [phone] Tarik Rock DO Primary Care Provider +1- [phone] Encounter Details Date Type Department Care Team (Late st Contact Info) Description 02/04/2017 Orders Only [facility] Scanning, Provider Social History Tobacco Use Types Packs/Day Years Used Date Smoking Tobacco: Never Assessed Comments Unknown Sex and Gender Information Value Date Recorded Sex Assigned at Not on file Legal 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 Female 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 Gender Identity Female 04/25/2018 1:19 PM CDT Sexual Orientation Not on file documented as of this encounter Plan of Treatment Not on file documented as of this encounter Procedures Procedure Name Priority Date/Time Associated Diagnosis Comments SCAN - RADIOLOGY/IMAGING 02/04/2017 documented in this encounter Results * SCAN - RADIOLOGY/IMAGING (02/04/2017) Anatomical Region Laterality Modality Other us Provider Scanning Final Result documented in this encounter Visit Diagnoses Not on filedocumented in this encounter Care Teams Linking Machine Operator Relationship Specialty Start Date End Date Tarik Rock DO PCP - General 01/06/14 08/22/17 Marion Gonzalez MD PCP - General 08/23/17 08/29/17 Tarik Rock DO PCP - General 08/30/17 01/13/18 Marion Gonzalez MD PCP - General 01/14/18 02/02/18 Tarik Rokc DO PCP - General 02/03/18 02/20/18 Tarik Rock DO PCP - General 02/21/18 documented as of this encounter
--- OUTSIDE RECORDS SUMMARY | 2025-05-14 15:07 | XMS_ITS | Clinical Summary ---
Author Organization [facility] [employer] Address [address] [place] [address] Care Team Providers Care Diagnostic Radiologic Technologist Name Role Phone Unavailable Primary Care Provider Unavailabl e Source Comments [facility] [employer] [employer],non-owned Affiliates and Associated Physician Practices is amultiple site organization consisting of ambulatory clinics and hospital sitesin [place], [place], [place] and [place]. This disclosure is being madepursuant to the Care Everywhere program and may not contain all information available regarding this patient. Last updated 18.[facility] Allergies Active Allergy Reactions Criticality Noted Date Comments Augmentin 12/21/2009 GI upsets Levaquin Anaphylaxis 02/02/2010 Medications * Be aware that medications may not be up to date on this document. Alwaysverify current medications with the patient. pregabalin (LYRICA) 150 MG capsule Take 150 mg by mouth at bedtime. Active multivitamin daily tablet Take 1 Tab by mouth daily with food. Active fish oil/omega-3 fatty acids (FISH OIL) 1000 MG capsule Take 1000 mg by mouth daily. Active mometasone (NASONEX) 50 MCG/ACT nasal spray [place] 1 [place] into each nostril as needed Active metronidazole (FLAGYL) 500 MG tablet Take 1 Tab by mouth 3 times daily. 21 0 12/30/2009 Active ibuprofen (MOTRIN) 600 MG tablet Take 1 Tab by mouth every 6 hours as needed for Pain. 60 none 12/30/2009 Active oxycodone-aceta minophen (PERCOCET) 5-325 MG tablet Take 1 Tab by mouth every 6 hours as needed for Pain. 60 none 12/30/2009 Active Active Problems Problem Noted Date Diagnosed Date Preoperative examination 12/21/2009 Social History Tobacco Use Types Packs/Day Years Used Date Smoking Tobacco: Never Alcohol Use Standard Drinks/Week Comments Yes 0 (1 standard drink = 0.6 oz pur e alcohol) social/rare Comments No Sex and Gender Information Value Date Recorded Sex Assigned at Not on file Legal Sex Female 6:01 AM EELER Gender Identity Not on file Sexual Orientation Not on file Last Filed Vital Signs Vital Sign Reading Time Taken Comments Blood Pressure 154/95 02/02/2010 9:36 PM CDT Pulse 78 02/02/2010 9:36 PM CDT Temperature 36.4 C (97.6 F) 02/02/2010 8:00 PM CDT Respiratory Rate 16 02/02/2010 9:36 PM CDT Oxygen Saturation 100% 02/02/2010 9:36 PM CDT Inhaled Oxygen Concentration - - Weight 90.7 kg (200 lb) 02/02/2010 8:00 PM CDT Height 167.6 cm (5' 6) 02/02/2010 8:00 PM CDT Body Mass Index 32.28 02/02/2010 8:00 PM CDT Plan of Treatment Health Maintenance Due Date Last Done Comments COLOGUARD (AGES 45-75) - COL ON CA SCREENING 1973 COLON MONITORING 1973 COLONOSCOPY - COLON CA SCREENING 1973 CT COLONOGRAPHY - COLON CA SCREENING 1973 Colorectal Cancer Screening 1973 FIT - COLON CA SCREENING 1973 FLEX SIG - COLON CA SCREENING 1973 LIPID TESTING 1973 MAMMOGRAM 1973 HIV SCREENING 1988 HEPATITIS C SCREENING 05/01/1991 DTAP/TDAP/TD VACCINES (1 - Tdap) 1992 HEPATITIS B VACCINE (1 of 3 - 19+ 3-dose series) 1992 PNEUMOCOCCAL VACCINE 50+ (1 of 1 - PCV) 2023 ZOSTER VACCINE (1 of 2) 2023 COVID-19 VACCINE ( - 2023-2 5 season) 2024 DEPRESSION SCREENING 10/14/2024 INFLUENZA VACCINE (#1) 2025 HIB VACCINE Aged Out No longer eligi ble based on patient's age to complete this topic HPV VACCINE Aged Out No longer eligi ble based on patient's age to complete this topic MENINGOCOCCAL (Group B) VACC INE SHARED DECISION-MAKING Aged Out No longer eligibl e based on patient's age to complete this topic MENINGOCOCCAL GROUPS A/C/Y/W VACCINE Aged Out No longer eligible b ased on patient's age to complete this topic Insurance [facility] Address: [address] [address] Advance Directives * Full Code (Latest Code Status on File) Date Activated Date Inactivated Comments 12/30/2009 12:50 PM 01/01/2010 3:28 AM * Full Code Date Activated Date Inactivated Comments 12/30/2009 6:17 AM 12/30/2009 12:50 PM
--- OUTSIDE RECORDS SUMMARY | 2025-05-14 15:07 | XMS_ITS | Encounter Summary ---
Author Organization [facility] Address [address] [place] [address] Phone Care Team Providers Care Towel Distributor Name Role Phone Tarik Rock DO Primary Care Provider [phone] Encounter Details Date Type Department Care Team (Late st Contact Info) Description 04/29/2021 Orders Only [facility] Scanning, Provider Social History Tobacco Use Types Packs/Day Years Used Date Smoking Tobacco: Never Smokeless Tobacco: Never Alcohol Use Standard Drinks/Week Comments Yes 0 (1 standard drink = 0.6 oz pur e alcohol) 2 drinks 2-3 nights per week Comments Unknown Sex and Gender Information Value Date Recorded Sex Assigned at Not on file Legal Sex Female 12:35 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 Gender Identity Female 04/25/2018 1:19 PM CDT Sexual Orientation Not on file 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 Not on file Not on fi le documented as of this encounter Plan of Treatment Not on file documented as of this encounter Procedures Procedure Name Priority Date/Time Associated Diagnosis Comments SCAN - RADIOLOGY/IMAGING 04/29/2021 documented in this encounter Results * SCAN - RADIOLOGY/IMAGING (04/29/2021) Anatomical Region Laterality Modality Other us Provider Scanning Final Result documented in this encounter Visit Diagnoses Not on filedocumented in this encounter Care Teams Towel Distributor Relationship Specialty Start Date End Date Tarik Rock DO PCP - General 02/21/18 documented as of this encounter
[2025-05-14 15:32] VITALS: BP 150/79; PULSE 86; RESP 15; TEMP 36.4; O2SAT 97
== END 2025-05-14 17:21 | disposition home or self-care (01) ==
PROVIDERS: Emergency Provider Emergency Medicine; PCP Internal Medicine
DX: M79.674 Pain in right toe(s) (principal); I10 Essential (primary) hypertension; E21.3 Hyperparathyroidism, unspecified; E55.9 Vitamin D deficiency, unspecified; L40.50 Arthropathic psoriasis, unspecified; G89.4 Chronic pain syndrome; M35.00 Sjogren syndrome, unspecified; F41.9 Anxiety disorder, unspecified; F32.A Depression, unspecified; Z98.1 Arthrodesis status; Z87.442 Personal history of urinary calculi; Z90.711 Acquired absence of uterus with remaining cervical stump; Z79.890 Hormone replacement therapy; Z79.899 Other long term (current) drug therapy; Z79.620 Long term (current) use of immunosuppressive biologic
CPT/HCPCS: 73610; 73630; 99283

== ENCOUNTER 2025-09-01 12:14 | Emergency (ER) | payer OTHER, SELFPAY ==
--- NOTE | ~2025-09-01 | CT_ITS ---
EXAM/PROCEDURE: CT abdomen pelvis w con HISTORY: abdominal pain COMPARISON: April 29, 2021 TECHNIQUE: IV contrast enhanced CT of the abdomen and pelvis performed FINDINGS: Moderately severe diverticular disease particularly in the left hemicolon, with approximately 10 cm stretch of proximal sigmoid colon with wall thickening and pericolonic strandy changes. Loops of jejunum in the same region are mildly distended and also have wall thickening. The appendix is medial to the cecum seen on axial images 1:15 through 119 and appears normal. There are inflammatory appearing changes also present in the area of the hepatic flexure where there is also moderately severe diverticular disease extending into the mid pelvis in the right paracolic gutter. See images 95 through 1:15 of series 3 where small amount of free fluid and infiltrative changes in the right abdomen/pelvis mesentery extends down to the appendix. Trace amount of free fluid with no pneumatosis or free air seen. No drainable fluid collection or abscess. No AAA. Urinary bladder unopacified and nondistended but no gross acute process seen. Liver spleen pancreas adrenal glands and liver appear normal. Diffuse degenerative changes throughout the bones with fusion hardware in the lower thoracic spine extending into L1 appears stable. Lung bases are clear. Heart size normal. In the abdomen and pelvis, mild fatty infiltrative changes of the liver. Small to moderate hiatal hernia slightly increased in size. No hydroureteronephrosis. IMPRESSION: Moderately severe diffuse diverticular disease with primary source of inflammatory appearing changes likely in the area of the proximal sigmoid colon consistent with acute diverticulitis without perforation or abscess. There are also inflammatory appearing changes in the area of the hepatic flexure extending into the pelvis and this may represent a second area of diverticulitis or possibly fluid from the sigmoidal process extending into the right hemipelvis. Loops of mildly distended effusion on with wall thickening may be sympathetic inflammatory changes and ileus associated with the diverticulitis. Correlate with follow-up abdominal imaging to exclude developing small bowel obstruction as clinically appropriate. COMMENT: Overall this is a complex appearance but I do not see perforation or abscess development. I think the primary source of acute disease is in the proximal sigmoid colon. If symptoms worsen or persist, low threshold for repeat CT examination is recommended. Reviewed, dictated and finalized at location A. RAISING ASSISTANT IMPRESSION: Moderately severe diffuse diverticular disease with primary source of inflammatory appearing changes likely in the area of the proximal sigmoid co vanessa consistent with acute diverticulitis without perforation or abscess. There are also inflammatory appearing changes in the area of the hepatic flexure exte nding into the pelvis and this may represent a second area of diverticulitis or possibly fluid from the sigmoidal process extending into the right hemipelvis. Loops of mildly distended effusion on with wall thickening may be sympathetic inflammatory changes and ileus associated with the diverticulitis. Correlate wi th follow-up abdominal imaging to exclude developing small bowel obstruction as clinically appropriate. COMMENT: Overall this is a complex appearance but I do not see perforation or a bscess development. I think the primary source of acute disease is in the proxi mal sigmoid colon. If symptoms worsen or persist, low threshold for repeat CT e xamination is recommended.
[2025-09-01 12:54] VITALS: BP 139/68; PULSE 96; RESP 16; TEMP 36.5; O2SAT 98
--- NOTE | 2025-09-01 14:14 | ED.GENADULT ---
HPI - General Adult General Chief complaint: Abdominal Pain <PAUL Miranda - Last Filed: 09/01/25 15:14> Stated complaint: abd pain <PAUL Miranda - Last Filed: 09/01/25 15:14> Time Seen by Provider: 09/01/25 16:30 <PAUL Miranda - Last Filed: 09/01/25 15:14> Focused HPI: 50 year old female presenting with LUQ abdominal pain since yesterday. Pain improves with rest. Denies nausea/vomiting/diarrhea, fevers/chills, cp/sob, or urinary complaints. Hx of diverticulitis and patient reports this episode feels similar. GENERAL: Well-appearing, well-nourished, and in no acute distress. HEAD: Normocephalic, atraumatic. CHEST: Clear to auscultation. ?No respiratory distress. ABDOMEN: Mild LUQ TTP HEART: Regular rate and rhythm.? NEURO: ?Alert and oriented x3. Patient screened in triage and initial orders placed.? ?Additional care and disposition to be based upon?diagnostic testing and treatment. <PAUL Miranda - Last Filed: 09/01/25 15:14> History of Present Illness HPI narrative: I agree with the above HPI <Kameron Wan MD - Last Filed: 09/01/25 21:39> Related Data Home medications: Home Medications ?Medication ?Instructions ?Recorded ?Confirmed ?Last Taken ?Type biotin 1 mg capsule 1 mg PO DAILY 08/25/19 07/23/25 09/22/24 History cholecalciferol (vitamin D3) 50 6,000 unit PO DAILY 08/25/19 07/23/25 09/22/24 History mcg (2,000 unit) tablet hydroxychloroquine 200 mg tablet 200 mg PO BID 08/25/19 07/23/25 09/22/24 History (Plaquenil) omega-3 fatty acids 1,000 mg 2,000 mg PO DAILY 12/08/20 07/23/25 09/20/24 History capsule (Fish Oil Concentrate) leflunomide 10 mg tablet 10 mg PO DAILY 09/18/22 07/23/25 09/22/24 History gdlrjoeg-ahe-pvbs-FA-Ca carb-vit K 1 tablet PO DAILY 09/04/23 07/23/25 09/22/24 History 18 mg iron-400 mcg-500 mg tablet estradiol 0.5 mg tablet 1 mg PO DAILY 06/08/24 07/23/25 09/22/24 History ixekizumab 80 mg/mL subcutaneous 80 mg subcut MONTHLY 06/08/24 07/23/25 09/13/24 History auto-injector (Taltz Autoinjector) fluticasone propionate 50 1 spray intranasal DAILY PRN 05/18/25 07/23/25 Unknown History mcg/actuation nasal spray,suspension minoxidil 2.5 mg tablet 1.25 mg PO DAILY 05/18/25 07/23/25 Unknown History spironolactone 100 mg tablet 100 mg PO DAILY 05/18/25 07/23/25 Unknown History pyridostigmine bromide 60 mg tablet 60 mg PO TID 07/23/25 07/23/25 Unknown History <PAUL Miranda - Last Filed: 09/01/25 15:14> Allergies/adverse reactions: Allergies Allergy/AdvReac Type Severity Reaction Status Date / Time amoxicillin (From Augmentin) AdvReac Mild Stomach Verified 07/23/25 08:46 cramps, Diarrhea clavulanic acid (From AdvReac Mild Stomach Verified 07/23/25 08:46 Augmentin) cramps, Diarrhea Beta-Blockers AdvReac Hypotension Verified 07/23/25 08:46 (Beta-Adrenergic Bloc <PAUL Miranda - Last Filed: 09/01/25 15:14> Review of Systems Review of Systems: All systems reviewed & are unremarkable except as noted in HPI and below <Kameron Wan MD - Last Filed: 09/01/25 21:39> PMFSH Past Medical History Medical History: Medical History Depression Anxiety Chronic pain syndrome Vitamin D deficiency Sjogrens syndrome Psoriatic arthritis Kidney stones Scoliosis Insomnia Hyperparathyroidism Hypertension <PAUL Miranda - Last Filed: 09/01/25 15:14> Surgical History Surgical History: Surgical History H/O hemorrhoidectomy 09/20/2022 History of removal of cyst Scalp. History of bilateral breast reduction surgery History of spinal fusion History of partial hysterectomy <PAUL Miranda - Last Filed: 09/01/25 15:14> Family History Family History: Family History Father Hypertension Family history of diabetes mellitus in first degree relative Mother Hypertension Sibling Family history of alcoholism Other Family history of cardiovascular disease <PAUL Miranda - Last Filed: 09/01/25 15:14> Social History Social History: Social History Social History: Surrogate medical decision maker: Jensen Tinocoy, spouse. Code status: Full code. Smoking status: Never smoker Alcohol intake: current Drinks per week: 4 Alcohol use details: 4-5 drinks most nights, none since 2021 Substance use: current Substance use type: marijuana Other substance usage details: medical marijuana Last use: 09/17/22 Do You Feel Safe in your Home?: Yes Lack of Transportation: No Lack of Food: Never True Current Housing: I Have Housing Concerned About Future Housing: No Difficulty Paying Gas/Electric Bills: No Difficulty Paying for Meds: No Currently Unemployed: No Education: Bachelor's Degree Difficulty w/ Childcare or Family Care: No Additional living arrangements comments: Lives in [place] with spouse. They have grown children. Spiritual care concerns: No <PAUL Miranda - Last Filed: 09/01/25 15:14> Exam Narrative: APPEARANCE: Well appearing, no pain, no distress, well-nourished. HEAD: normocephalic, atraumatic. EYES: PERRLA/EOMI, conjunctivae clear. NOSE: Normal no drainage EARS:TMS clear with good light reflex. THROAT: Pharynx clear, no exudate. NECK: Supple. No adenopathy, no masses. RESPIRATORY: Airway patent, respirations nonlabored. Clear to auscultation bilaterally, no rales, rhonchi, wheezing. CARDIOVASCULAR: Regular rate and rhythm without murmurs rubs or gallops. ABDOMINAL: Left lower quadrant tenderness to palpation MUSCULOSKELETAL: Moves all extremities. Strength/ROM intact, No edema, No calf tenderness. NEURO: Alert. Cranial nerves II through XII intact. Good gait. Good coordination SKIN: Warm, dry. Normal Color <Kameron Wan MD - Last Filed: 09/01/25 21:39> Course Vital Signs Vital signs: Vital Signs Temperature 97.7 F 09/01/25 12:54 Pulse Rate 96 09/01/25 12:54 Respiratory Rate 16 09/01/25 12:54 Blood Pressure 139/68 09/01/25 12:54 Pulse Oximetry 98 09/01/25 12:54 Oxygen Delivery Room Air 09/01/25 12:54 Temperature 97.7 F 09/01/25 12:54 Pulse Rate 87 09/01/25 15:10 Respiratory Rate 18 09/01/25 15:10 Blood Pressure 150/84 H 09/01/25 15:10 Pulse Oximetry 97 09/01/25 15:10 Oxygen Delivery Room Air 09/01/25 12:54 <PAUL Miranda - Last Filed: 09/01/25 15:14> Vital Signs Temperature 97.7 F 09/01/25 12:54 Pulse Rate 96 09/01/25 12:54 Respiratory Rate 16 09/01/25 12:54 Blood Pressure 139/68 09/01/25 12:54 Pulse Oximetry 98 09/01/25 12:54 Oxygen Delivery Room Air 09/01/25 12:54 Temperature 97.7 F 09/01/25 12:54 Pulse Rate 87 09/01/25 15:10 Respiratory Rate 18 09/01/25 15:10 Blood Pressure 150/84 H 09/01/25 15:10 Pulse Oximetry 97 09/01/25 15:10 Oxygen Delivery Room Air 09/01/25 12:54 <Kameron Wan MD - Last Filed: 09/01/25 21:39> Medical Decision Making MDM Narrative Medical decision making narrative: 50-year-old female presents emergency department for evaluation for left lower quadrant pain. Patient does have history of diverticular disease and diverticulitis. Patient is currently afebrile but does have a leukocytosis of 14.0 hemoglobin of 12.6. No significant acute abnormalities on her CMP patient has negative lipase as well. UA was negative for infection. CT scan did show evidence extensive diverticular disease with a area of diverticulitis at the sigmoid colon with potential 2nd site of diverticulitis or fluid tracking. On examination patient has a soft nonsurgical abdomen with mild tenderness in the left lower quadrant. Patient prefers to be discharged home and patient is well-appearing. Patient does have multiple medication allergies and she was started on Cipro and Flagyl emergency department. Patient was also treated with IV Toradol for pain control. <Kameron Wan MD - Last Filed: 09/01/25 21:39> Differential Diagnosis Differential Diagnosis: Colitis, diverticulitis, prefer duration, abscess <Kameron Wan MD - Last Filed: 09/01/25 21:39> Vital Signs Vital Signs: Vital Signs Temperature 97.7 F 09/01/25 12:54 Pulse Rate 96 09/01/25 12:54 Respiratory Rate 16 09/01/25 12:54 Blood Pressure 139/68 09/01/25 12:54 Pulse Oximetry 98 09/01/25 12:54 Oxygen Delivery Room Air 09/01/25 12:54 Temperature 97.7 F 09/01/25 12:54 Pulse Rate 87 09/01/25 15:10 Respiratory Rate 18 09/01/25 15:10 Blood Pressure 150/84 H 09/01/25 15:10 Pulse Oximetry 97 09/01/25 15:10 Oxygen Delivery Room Air 09/01/25 12:54 <PAUL Miranda - Last Filed: 09/01/25 15:14> Vital Signs Temperature 97.7 F 09/01/25 12:54 Pulse Rate 96 09/01/25 12:54 Respiratory Rate 16 09/01/25 12:54 Blood Pressure 139/68 09/01/25 12:54 Pulse Oximetry 98 09/01/25 12:54 Oxygen Delivery Room Air 09/01/25 12:54 Temperature 97.7 F 09/01/25 12:54 Pulse Rate 87 09/01/25 15:10 Respiratory Rate 18 09/01/25 15:10 Blood Pressure 150/84 H 09/01/25 15:10 Pulse Oximetry 97 09/01/25 15:10 Oxygen Delivery Room Air 09/01/25 12:54 <Kameron Wan MD - Last Filed: 09/01/25 21:39> Lab Data Lab results reviewed: Yes I reviewed the patient's lab results. <Kameron Wan MD - Last Filed: 09/01/25 21:39> Result diagrams: 09/01/25 15:16 09/01/25 15:16 <PAUL Miranda - Last Filed: 09/01/25 15:14> Labs: Lab Results 09/01/25 Range/Units 15:16 WBC 14.0 H (4.5-10.0) K/mm3 RBC 3.79 L (4.2-5.4) M/mm3 Hgb 12.6 (12.0-15.0) g/dL Hct 37.4 (37.0-47.0) % MCV 98.7 (80-100) fl MCH 33.2 (26-34) pg MCHC 33.7 (32-36) g/dl RDW 13.2 (11.5-14.5) % Plt Count 216 (150-375) k/mm3 MPV 11.3 H (7.4-10.4) fl Immature Gran % (Auto) 0.3 (0-0.5) % Neut % (Auto) 81.5 H (45.5-73.1) % Lymph % (Auto) 9.3 L (18.3-44.2) % Banks % (Auto) 7.2 (2.6-8.5) % Eos % (Auto) 1.1 (0-4.4) % Baso % (Auto) 0.6 (0.2-1.2) % Lymph # (Auto) 1.30 (0.9-3.2) K/mm3 Banks # (Auto) 1.0 H (0.1-0.6) K/mm3 Eos # (Auto) 0.2 (0-0.3) K/mm3 Baso # (Auto) 0.1 (0.0-0.1) K/mm3 Abs Immat Gran (auto) 0.04 H (0.00-0.031) K/mm3 Absolute Neuts (auto) 11.4 H (1.3-6.7) K/mm3 Absolute Nucleated RBC 0.000 (0.0-0.012) K/mm3 Nucleated RBC % 0.0 (0.0-0.2) % Sodium 134 L (137-145) mmol/L Potassium 3.8 (3.4-5.0) mmol/L Chloride 102 (98-107) mmol/L Carbon Dioxide 25 (22-30) mmol/L Anion Gap 7 (4-12) mmol/L BUN 16 (7-17) mg/dL Creatinine 0.82 (0.7-1.0) mg/dL Estim Creat Clear Calc 87 ml/min Estimated GFR > 60 (59 - ) Glucose 95 (65-110) mg/dL Calcium 10.3 H (8.4-10.2) mg/dL Total Bilirubin 1.3 (0.2-1.3) mg/dL AST 23 (14-36) U/L ALT 20 (6-35) U/L Alkaline Phosphatase 60 (38-126) U/L Total Protein 7.6 (6.3-8.2) g/dL Albumin 4.4 (3.5-5.1) g/dL Lipase 46 (23-300) U/L Urine Color Dark yellow (Yellow) Urine Appearance Cloudy H (Clear) Urine pH 5.5 (5.0-9.0) Ur Specific [place] 1.023 (1.001-1.035) Urine Protein 1+ H (Negative) mg/dL Urine Glucose (UA) Negative (Negative) mg/dL Urine Ketones 1+ H (Negative) mg/dL Ur Blood (Man) Negative (Negative) Urine Nitrate Negative (Negative) Urine Bilirubin Negative (Negative) Urine Urobilinogen 1.0 (<2.0) mg/dL Leukocyte Esterase Rfl Negative (Negative) COOPER/UL Urine RBC 0-2 (0-2) /hpf Urine WBC 6-10 H (0-3) /hpf Ur Squamous Epith Cells Few (Few) /hpf Urine Bacteria 3+ H /hpf Urine Casts 3-5 <PAUL Miranda - Last Filed: 09/01/25 15:14> Lab Results 09/01/25 Range/Units 15:16 WBC 14.0 H (4.5-10.0) K/mm3 RBC 3.79 L (4.2-5.4) M/mm3 Hgb 12.6 (12.0-15.0) g/dL Hct 37.4 (37.0-47.0) % MCV 98.7 (80-100) fl MCH 33.2 (26-34) pg MCHC 33.7 (32-36) g/dl RDW 13.2 (11.5-14.5) % Plt Count 216 (150-375) k/mm3 MPV 11.3 H (7.4-10.4) fl Immature Gran % (Auto) 0.3 (0-0.5) % Neut % (Auto) 81.5 H (45.5-73.1) % Lymph % (Auto) 9.3 L (18.3-44.2) % Banks % (Auto) 7.2 (2.6-8.5) % Eos % (Auto) 1.1 (0-4.4) % Baso % (Auto) 0.6 (0.2-1.2) % Lymph # (Auto) 1.30 (0.9-3.2) K/mm3 Banks # (Auto) 1.0 H (0.1-0.6) K/mm3 Eos # (Auto) 0.2 (0-0.3) K/mm3 Baso # (Auto) 0.1 (0.0-0.1) K/mm3 Abs Immat Gran (auto) 0.04 H (0.00-0.031) K/mm3 Absolute Neuts (auto) 11.4 H (1.3-6.7) K/mm3 Absolute Nucleated RBC 0.000 (0.0-0.012) K/mm3 Nucleated RBC % 0.0 (0.0-0.2) % Sodium 134 L (137-145) mmol/L Potassium 3.8 (3.4-5.0) mmol/L Chloride 102 (98-107) mmol/L Carbon Dioxide 25 (22-30) mmol/L Anion Gap 7 (4-12) mmol/L BUN 16 (7-17) mg/dL Creatinine 0.82 (0.7-1.0) mg/dL Estim Creat Clear Calc 87 ml/min Estimated GFR > 60 (59 - ) Glucose 95 (65-110) mg/dL Calcium 10.3 H (8.4-10.2) mg/dL Total Bilirubin 1.3 (0.2-1.3) mg/dL AST 23 (14-36) U/L ALT 20 (6-35) U/L Alkaline Phosphatase 60 (38-126) U/L Total Protein 7.6 (6.3-8.2) g/dL Albumin 4.4 (3.5-5.1) g/dL Lipase 46 (23-300) U/L Urine Color Dark yellow (Yellow) Urine Appearance Cloudy H (Clear) Urine pH 5.5 (5.0-9.0) Ur Specific [place] 1.023 (1.001-1.035) Urine Protein 1+ H (Negative) mg/dL Urine Glucose (UA) Negative (Negative) mg/dL Urine Ketones 1+ H (Negative) mg/dL Ur Blood (Man) Negative (Negative) Urine Nitrate Negative (Negative) Urine Bilirubin Negative (Negative) Urine Urobilinogen 1.0 (<2.0) mg/dL Leukocyte Esterase Rfl Negative (Negative) COOPER/UL Urine RBC 0-2 (0-2) /hpf Urine WBC 6-10 H (0-3) /hpf Ur Squamous Epith Cells Few (Few) /hpf Urine Bacteria 3+ H /hpf Urine Casts 3-5 <Kameron Wan MD - Last Filed: 09/01/25 21:39> Imaging Data Radiologist's impression: Impressions Abdomen/Pelvis CT 09/01/25 16:18 IMPRESSION: Moderately severe diffuse diverticular disease with primary source of inflammatory appearing changes likely in the area of the proximal sigmoid colon consistent with acute diverticulitis without perforation or abscess. There are also inflammatory appearing changes in the area of the hepatic flexure extending into the pelvis and this may represent a second area of diverticulitis or possibly fluid from the sigmoidal process extending into the right hemipelvis. Loops of mildly distended effusion on with wall thickening may be sympathetic inflammatory changes and ileus associated with the diverticulitis. Correlate with follow-up abdominal imaging to exclude developing small bowel obstruction as clinically appropriate. COMMENT: Overall this is a complex appearance but I do not see perforation or abscess development. I think the primary source of acute disease is in the proximal sigmoid colon. If symptoms worsen or persist, low threshold for repeat CT examination is recommended. <Kameron Wan MD - Last Filed: 09/01/25 21:39> Discharge Plan Discharge Clinical Impression: Diverticulitis <PAUL Miranda - Last Filed: 09/01/25 15:14> Patient Disposition: Home <PAUL Miranda - Last Filed: 09/01/25 15:14> Condition: Stable <PAUL Miranda - Last Filed: 09/01/25 15:14> Instructions: Antibiotic Form, Diverticulitis (ED) <PAUL Miranda - Last Filed: 09/01/25 15:14> Additional Instructions: Antibiotic as directed until completed. Tylenol and ibuprofen for pain control. Continue to have close follow-up with GI. If you have any worsening symptoms then please call or return to the emergency department. <PAUL Miranda - Last Filed: 09/01/25 15:14> Patient Language: Singaporean <PAUL Miranda - Last Filed: 09/01/25 15:14> Prescriptions: New metronidazole 500 mg tablet 500 mg PO Q12H 7 Days Qty: 14 0RF ciprofloxacin HCl [Cipro] 500 mg tablet 500 mg PO Q12H 7 Days Qty: 14 0RF No Action hydroxychloroquine [Plaquenil] 200 mg tablet 200 mg PO BID cholecalciferol (vitamin D3) 2,000 unit tablet 6,000 unit PO DAILY biotin 1 mg capsule 1 mg PO DAILY omega-3 fatty acids [Fish Oil Concentrate] 1,000 mg capsule 2,000 mg PO DAILY be-vm-pqpw-FA-Ca carb-vit K 18 mg iron-400 mcg-500 mg tablet 1 tablet PO DAILY fluticasone propionate 50 mcg/actuation spray,suspension 1 spray intranasal DAILY PRN Rx Instructions: administer into each nostril minoxidil 2.5 mg tablet 1.25 mg PO DAILY spironolactone 100 mg tablet 100 mg PO DAILY colchicine 0.6 mg tablet See Rx Instructions PO DAILY Qty: 9 1RF Rx Instructions: Take 2 tablets PO x1 then 1 tablets Po 1 hour later. pyridostigmine bromide 60 mg tablet 60 mg PO TID Taltz Autoinjector 80 mg/mL auto-injector 80 mg subcut MONTHLY estradiol 0.5 mg tablet 1 mg PO DAILY leflunomide 10 mg tablet 10 mg PO DAILY amlodipine 10 mg tablet 10 mg PO DAILY Qty: 90 1RF prednisone 10 mg tablet 10 mg PO BID Qty: 10 0RF lisinopril 40 mg tablet 40 mg PO DAILY Qty: 90 1RF <PAUL Miranda - Last Filed: 09/01/25 15:14> Follow-up/Referrals: Tarik Rock DO [Primary Care Provider, Internal Medicine] <PAUL Miranda - Last Filed: 09/01/25 15:14>
[2025-09-01 15:10] VITALS: BP 150/84; PULSE 87; RESP 18; O2SAT 97
[2025-09-01 15:26] LABS: Hematocrit 37.4 % (37.0-47.0); Hemoglobin 12.6 g/dL (12.0-15.0); Immature Granulocyte Percent A 0.3 % (0-0.5); Lymphocytes Absolute Auto 1.30 K/mm3 (0.9-3.2); Mean Corpuscular HGB Conc 33.7 g/dl (32-36); Mean Corpuscular Hemoglobin 33.2 pg (26-34); Mean Corpuscular Volume 98.7 fl (80-100); Nucleated Red Blood Cells Absolute Auto 0.000 K/mm3 (0.0-0.012); Nucleated Red Blood Cells Perc 0.0 % (0.0-0.2); Platelet Count Result 216 k/mm3 (150-375); Red Blood Count 3.79 M/mm3 (4.2-5.4); White Blood Count 14.0 K/mm3 (4.5-10.0)
[2025-09-01 15:28] LABS: Add Urine Microscopic? YES; Appearance Urine Cloudy (Clear); Glucose Urine UA Negative (Negative); Leukocyte Esterase Ur Negative LEU/UL (Negative); Nitrate Urine Negative (Negative); Specific Grav Ur 1.023 (1.001-1.035)
[2025-09-01 15:34] LABS: Alanine Aminotransferase 20 U/L (6-35); Albumin Level 4.4 g/dL (3.5-5.1); Alkaline Phosphatase 60 U/L (38-126); Anion Gap 7 mmol/L (4-12); Aspartate Amino Transferase 23 U/L (14-36); Bilirubin,Total 1.3 mg/dL (0.2-1.3); Blood Urea Nitrogen 16 mg/dL (7-17); Calcium 10.3 mg/dL (8.4-10.2); Carbon Dioxide 25 mmol/L (22-30); Chloride 102 mmol/L (98-107); Estimated CRCL calculation 87 ml/min; Estimated Glomerular Filt Rate > 60; Glucose 95 mg/dL (65-110); Lipase 46 U/L (23-300); Potassium 3.8 mmol/L (3.4-5.0); Sodium 134 mmol/L (137-145); Total Protein 7.6 g/dL (6.3-8.2)
[2025-09-01] MEDS: CIPROFLOXACIN 500 MG TAB PO (17:11)
[2025-09-01] MEDS: KETOROLAC 30 MG/ML VIAL (*BKC) IV PUSH (17:11)
--- OUTSIDE RECORDS SUMMARY | 2025-09-01 17:39 | XMS_ITS | Encounter Summary ---
Author Organization [facility] Health Address [address] [place] [address] Care Team Providers Care Pattern Grader Name Role Phone Unavailable Primary Care Provider Madhavabl e Encounter Details Date Type Department Care Team (Late st Contact Info) Description 04/21/2021 Lab Requisition [facility] [address] [place] [address] Alberto Pagan MD [address] [place] [address] Social History Tobacco Use Types Packs/Day Years Used Date Smoking Tobacco: Never Assessed Comments No Sex and Gender Information Value Date Recorded Sex Assigned at Not on file 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 Gender Identity Not on file Sexual Orientation Not on file documented as of this encounter Plan of Treatment Not on file documented as of this encounter Procedures Procedure Name Priority Date/Time Associated Diagnosis Comments DERMATOPATHOLOGY Routine 04/20/2021 3:33 AM CDT documented in this encounter Results * DERMATOPATHOLOGY (04/20/2021 3:33 AM CDT) Case Report Dermatopathology Report Case: [id number] Authorizing Provider: Alberto Pagan MD Collected: 04/20/2021 03:33 AM Ordering Location: [facility] Received: 04/21/2021 06:25 AM Pathologist: Terra Holden MD Specimen: Skin, left scalp 1:48 PM CDT DERMATOPATHOLOGY LABORATORY Final Diagnosis Specimen A. SKIN, left scalp: EPIDERMOID CYST WITH EVIDENCE OF RUPTURE (L72.0) NOT PRESENT AT SAMPLED MARGIN 1:48 PM CDT DERMATOPATHOLOGY LABORATORY at 1348 CDT Clinical History E cyst. Path # [id number]. Check margins. 1:48 PM CDT DERMATOPATHOLOGY LABORATORY Gross Description Specimen A: Received is one formalin filled container labeled with the patient's name and designated left scalp. The specimen consists of a [id number] excision, bisected. The margin is inked green. Jar 0. 1 1:48 PM CDT DERMATOPATHOLOGY LABORATORY Microscopic Description [...] characteristic determined by the Dermatopathology Laboratory at [facility] [place], directed by Dr. Venancio Parker. These tests need not be, and therefore are not, approved by the [place] Food and Drug Administration. The tests are used for clinical purposes. Billing Codes Specimen Charges Stain Charges 67481 1 1 1:48 PM CDT DERMATOPATHOLOGY LABORATORY Embedded Images 1 1:48 PM CDT DERMATOPATHOLOGY LABORATORY Pathology/Cytolo gy TISSUE SPECIMEN FROM SKIN / Unknown 04/20/2021 3:33 AM CDT 04/21/2021 6:25 AM CDT us Alberto Pagan MD LAB - PATHOLOGY/CYTOLOGY ORDER CLAUDE Final Result DERMATOPATHOLOGY LABORATORY [facility] - Department of Dermatology [address], [address] [phone] documented in this encounter Visit Diagnoses Not on filedocumented in this encounter
--- OUTSIDE RECORDS SUMMARY | 2025-09-01 17:39 | XMS_ITS | Clinical Summary ---
Author Organization [facility] Address [address] [place] [address] Care Team Providers Care Holistic Pulser Name Role Phone Unavailable Primary Care Provider Unavailabl e Source Comments [facility],non-owned Affiliates and Associated Physician Practices is amultiple site organization consisting of ambulatory clinics and hospital sitesin [place], [place], [place] and [place]. This disclosure is being madepursuant to the Care Everywhere program and may not contain all information available regarding this patient. 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 Gender Identity Not on file Sexual Orientation [...] of 3 - 19+ 3-dose series) 1992 PAP SMEAR 1994 Cervical Cancer Screening 2003 PAP with HPV 2003 PNEUMOCOCCAL VACCINE 50+ (1 of 1 - PCV) 2023 ZOSTER VACCINE (1 of 2) 2023 DEPRESSION SCREENING 10/14/2024 COVID-19 VACCINE (1 - 2024-2 6 season) 2025 INFLUENZA VACCINE (#1) 2025 HIB VACCINE Aged [...] patient's age to complete this topic Insurance [facility] Address: [id number] [place] [address] Advance Directives * Full Code (Latest Code Status on File) Date Activated Date Inactivated Comments 12/30/2009 12:50 PM 01/01/2010 3:28 AM * Full Code Date Activated Date Inactivated Comments 12/30/2009 6:17 AM 12/30/2009 12:50 PM
--- OUTSIDE RECORDS SUMMARY | 2025-09-01 17:40 | XMS_ITS | Clinical Summary ---
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 Gender Identity Not on file Sexual Orientation Not on file Last Filed Vital Signs Vital Sign Reading Time Taken Comments Blood Pressure 135/56 12/25/2020 12:00 AM ELECTRICAL TIMING DEVICE CALIBRATOR Pulse 76 12/25/2020 12:15 AM ELECTRICAL TIMING DEVICE CALIBRATOR Temperature 36.1 C (97 F) 12/24/2020 10:59 PM ELECTRICAL TIMING DEVICE CALIBRATOR Respiratory Rate 21 12/24/2020 10:59 PM ELECTRICAL TIMING DEVICE CALIBRATOR Oxygen Saturation 97% 12/25/2020 12:15 AM ELECTRICAL TIMING DEVICE CALIBRATOR Inhaled Oxygen Concentration - - Weight 122.5 kg (270 lb) 12/24/2020 10:59 PM ELECTRICAL TIMING DEVICE CALIBRATOR Height 167.6 cm (5' 6) 12/24/2020 10:59 PM ELECTRICAL TIMING DEVICE CALIBRATOR Body Mass Index 43.58 12/24/2020 10:59 PM ELECTRICAL TIMING DEVICE CALIBRATOR Plan of Treatment Health Maintenance Due Date Last Done Comments Hepatitis C Virus (HCV) Screening 1973 TdaP Immunization 1973 Varicella Immunization (1 of 2 - 13+ 2-dose series) 1986 Hepatitis B Immunization (1 of 3 - 19+ 3-dose series) 1992 Zoster Immunization (1 of 2) 1992 Cologuard 2018 Colonoscopy 2018 Colorectal Cancer Screening 2018 Immunochemical Fecal Occult Blood 2018 SARS-COV-2 Immunization (3 - Pfizer risk series) 12/26/2020 11/28/2020, 11/11/2020 Pneumococcal Immunization (5 0+ years) (1 of 1 - PCV) 2023 Respiratory Syncytial Virus (RSV) Immunization (Adult) (1 - Risk 50-74 years 1-dose series) 2023 Influenza Immunization (#1) 2025 Human Papillomavirus (HPV) Immunization Aged Out No longer eligible b ased on patient's age to complete this topic Meningococcal Immunization (ACWY) Aged Out No longer eligible b ased on patient's age to complete this topic Rotavirus Immunization Aged Out No lo nger eligible based on patient's age to complete this topic Care Teams Group Controller Relationship Specialty Start Date End Date Tarik Rock DO [facility] [address] [facility] [place] [address] PCP - General Internal Medicine 12/24/20
== END 2025-09-01 17:20 | disposition home or self-care (01) ==
PROVIDERS: Emergency Provider Emergency Medicine; PCP Internal Medicine
DX: K57.32 Diverticulitis of large intestine without perforation or abscess without bleeding (principal); I10 Essential (primary) hypertension; E55.9 Vitamin D deficiency, unspecified; E21.3 Hyperparathyroidism, unspecified; M35.00 Sjogren syndrome, unspecified; G89.4 Chronic pain syndrome; L40.50 Arthropathic psoriasis, unspecified; F41.9 Anxiety disorder, unspecified; F32.A Depression, unspecified; Z98.1 Arthrodesis status; Z90.711 Acquired absence of uterus with remaining cervical stump
CPT/HCPCS: 36415; 74177; 80053; 81001; 83690; 85025; 87086; 96374; 99284; A9270; J1885; Q9967

== ENCOUNTER 2025-10-06 08:22 | Outpatient (CLI) | payer OTHER, SELFPAY ==
--- NOTE | ~2025-10-06 | MM_ITS ---
EXAMINATION: MM screening eben BI w wyatt HISTORY: Screening. TECHNIQUE: Craniocaudal and mediolateral oblique 3-D tomosynthesis images were obtained and synthetic 2-D images were generated. CAD analysis was submitted and interpreted. COMPARISON: 2023, 2022, and 2020. BREAST PARENCHYMAL COMPOSITION: Not Dense: There are scattered areas of fibroglandular tissue. FINDINGS: No suspicious masses are seen. There are no suspicious calcifications. No unexplained architectural distortion is seen. There are no skin or nipple abnormalities identified. There is no adenopathy seen on the images submitted. IMPRESSION: No mammographic evidence to suggest malignancy is seen. The patient may return to screening mammography as per ACR guidelines. BI-RADS 1 - Negative. Reviewed, dictated and finalized at location A. PI ARCHITECT
== END 2025-10-06 08:23 | disposition home or self-care (01) ==
LOC: MICIMG 08:23
PROVIDERS: PCP Internal Medicine; Visit Provider Internal Medicine
DX: Z12.31 Encounter for screening mammogram for malignant neoplasm of breast (principal)
CPT/HCPCS: 77063; 77067